=== PATIENT | female | born 1955 | race Caucasian/White ===

== ENCOUNTER 2020-04-07 13:59 | Inpatient (IN) | payer BC ==
[2020-04-07] MEDS ORDERED: Sodium Chloride 0.9% 10 ML Syringe FLUSH PRN ×2 (14:44→16:24)
[2020-04-07] MEDS ORDERED: methylPREDNISolone Sodium Succinate 125 MG/2 ML SDV IVPUSH ONE (14:46)
[2020-04-07] MEDS ORDERED: Albuterol/Ipratropium 3.0-0.5 MG/3 ML Neb Soln NEB ONE (14:46)
[2020-04-07] MEDS ORDERED: HYDROmorphone 0.5 MG/0.5 ML Syringe IVPUSH ONE (14:48)
--- NOTE | 2020-04-07 16:10 | EDM.PDOC ---
ED HPI GENERAL MEDICAL PROBLEM - General Chief Complaint: Respiratory Problem Stated Complaint: SOB, NO BOWEL MOVEMENT, SORES ON BACK Time Seen by Provider: 04/07/20 14:21 Source of Information: Reports: Patient History Limitations: Reports: No Limitations - History of Present Illness INITIAL COMMENTS - FREE TEXT/NARRATIVE: The patient presents with shortness of breath. She has stage 4 lung cancer. She has mets to lymph nodes and lesions under the skin. She is seeing Dr Grijalva and they are trying an immunologic. She was supposed to get an infusion to day but she was to short of breath. She also says she has not had a bowel movement in a few days. She has no fever or chills. She does have a cough but that is normal for her. She has some chest pain with the cough. She has no history of PE or DVT. She has no swelling or pain in her legs. Onset: Gradual Duration: Day(s): Location: Reports: Chest Quality: Reports: Sharp Severity: Mild Improves with: Reports: None Worsens with: Reports: None Associated Symptoms: Reports: Chest Pain, Cough, Shortness of Breath. Denies: Fever/Chills, Headaches, Nausea/Vomiting Buttock Pain Score (Numeric/FACES): 5 - Related Data Allergies Allergy/AdvReac Type Severity Reaction Status Date / Time lorazepam [From Ativan] Allergy Severe Cardiac Verified 04/07/20 14:08 Arrest phenytoin [From Dilantin] Allergy Severe Rash Verified 04/07/20 14:08 Home Meds: Home Meds DULoxetine [Cymbalta] 90 mg PO DAILY 04/07/20 [History] Metoclopramide HCl [Reglan] 10 mg PO QID 04/07/20 [History] cloNIDine [Catapres] 0.1 mg PO DAILY 04/07/20 [History] dexAMETHasone [Dexamethasone] 2 mg PO DAILY 04/07/20 [History] fentaNYL [Duragesic] 100 mcg TD Q48H 04/07/20 [History] levETIRAcetam [Keppra] 1,000 mg PO Q8H 04/07/20 [History] oxyCODONE ER [OxyCONTIN] 20 mg PO BID 04/07/20 [History] Past Medical History Oncologic (Cancer) History: Reports: Lung - Past Surgical History HEENT Surgical History: Reports: Adenoidectomy, Tonsillectomy Female Surgical History: Reports: Hysterectomy Neurological Surgical History: Reports: Lumbar Spine Musculoskeletal Surgical History: Reports: Arthroscopic Knee Social & Family History - Tobacco Use Smoking Status *Q: Current Some Day Smoker Years of Tobacco use: 40 Packs/Tins Daily: 1 - Recreational Drug Use Recreational Drug Use: No ED ROS GENERAL - Review of Systems Review Of Systems: See Below Constitutional: Reports: No Symptoms HEENT: Reports: No Symptoms Respiratory: Reports: Shortness of Breath Cardiovascular: Reports: Chest Pain Endocrine: Reports: No Symptoms GI/Abdominal: Reports: No Symptoms : Reports: No Symptoms Musculoskeletal: Reports: No Symptoms Skin: Reports: No Symptoms Neurological: Reports: No Symptoms ED EXAM, GENERAL - Physical Exam Exam: See Below Exam Limited By: No Limitations General Appearance: Alert, No Apparent Distress Ears: Normal External Exam Nose: Normal Inspection Head: Atraumatic, Normocephalic Neck: Other (Mass to the left side of her neck and a larger mass above the right clavicle) Respiratory/Chest: No Respiratory Distress, Decreased Breath Sounds, Wheezing Cardiovascular: Regular Rate, Rhythm, No Edema, No Murmur GI/Abdominal: Soft, Non-Tender, No Organomegaly, No Mass Back Exam: Normal Inspection Extremities: Normal Inspection EKG INTERPRETATION EKG Date: 04/07/20 Time: 15:01 Rhythm: Other (sinus tachycardia) Rate (Beats/Min): 119 Ramsay: LAD-Left Ramsay Deviation P-Wave: Present QRS: Normal ST-T: Normal EKG Interpretation Comments: Q waves in the inferior leads Course - Vital Signs Last Recorded V/S: Last Vital Signs Temp 98.5 F 04/07/20 14:03 Pulse 121 H 04/07/20 14:03 Resp 23 H 04/07/20 14:03 BP 95/60 04/07/20 14:03 Pulse Ox 93 L 04/07/20 15:00 - Orders/Labs/Meds Orders: Active Orders 24 hr Category Date Time Status Cardiac Monitoring [RC] . DIRECTED Care 04/07/20 14:45 Active EKG Documentation Completion [RC] STAT Care 04/07/20 14:45 Active Peripheral IV Care [RC] . DIRECTED Care 04/07/20 14:46 Active RT Aerosol Therapy [RC] ASDIRECTED Care 04/07/20 14:46 Active CORONAVIRUS COVID-19 PCR PHL Stat Lab 04/07/20 17:20 Ordered CULTURE BLOOD [BC] Stat Lab 04/07/20 17:20 Ordered CULTURE BLOOD [BC] Stat Lab 04/07/20 17:20 Ordered Piperacillin/Tazobactam [Piperacil-Tazobact] 4.5 gm Med 04/07/20 17:30 Active Sodium Chloride 0.9% [Normal Saline] 100 ml IV Q8H Sodium Chloride 0.9% [Normal Saline] 45 ml Med 04/07/20 16:30 Active IV ASDIRECTED Sodium Chloride 0.9% [Saline Flush] Med 04/07/20 14:44 Active 10 ml FLUSH ASDIRECTED PRN Sodium Chloride 0.9% [Saline Flush] Med 04/07/20 16:24 Active 10 ml FLUSH ONETIME PRN Vancomycin [Vancocin] 1 gm Med 04/07/20 17:21 Active Sodium Chloride 0.9% [Normal Saline (AdvBag)] 250 ml IV ONETIME Blood Culture x2 Reflex Set [OM.PC] Stat Oth 04/07/20 17:20 Ordered Peripheral IV Insertion Adult [OM.PC] Stat Oth 04/07/20 14:44 Ordered Medication Orders Sodium Chloride (Normal Saline) 45 mls @ 40 mls/hr IV ASDIRECTED PATRICA Last Admin: 04/07/20 16:36 Dose: 40 mls/hr Documented by: SHADI Vancomycin HCl 1 gm/ Sodium (Chloride) 250 mls @ 250 mls/hr IV ONETIME ONE Stop: 04/07/20 18:20 Piperacillin Sod/Tazobactam (Sod 4.5 gm/ Sodium Chloride) 100 mls @ 25 mls/hr IV Q8H PATRICA Sodium Chloride (Saline Flush) 10 ml FLUSH ASDIRECTED PRN PRN Reason: Keep Vein Open Last Admin: 04/07/20 15:30 Dose: 10 ml Documented by: DANISHA Sodium Chloride (Saline Flush) 10 ml FLUSH ONETIME PRN PRN Reason: Keep Vein Open Last Admin: 04/07/20 16:36 Dose: 10 ml Documented by: SHADI Labs: Laboratory Tests 04/07/20 04/07/20 Range/Units 15:20 15:20 WBC 24.26 H (3.98-10.04) K/mm3 RBC 3.84 L (3.98-5.22) M/mm3 Hgb 9.0 L (11.2-15.7) gm/dl Hct 31.4 L (34.1-44.9) % MCV 81.8 (79.4-94.8) fl MCH 23.4 L (25.6-32.2) pg MCHC 28.7 L (32.2-35.5) g/dl RDW Std Deviation 51.0 H (36.4-46.3) fL Plt Count 571 H (182-369) K/mm3 MPV 8.0 L (9.4-12.3) fl Neut % (Auto) 92.7 H (34.0-71.1) % Lymph % (Auto) 1.1 L (19.3-51.7) % [place] % (Auto) 5.4 (4.7-12.5) % Eos % (Auto) 0.3 L (0.7-5.8) Baso % (Auto) 0.1 (0.1-1.2) % Neut # (Auto) 22.50 H (1.56-6.13) K/mm3 Lymph # (Auto) 0.26 L (1.18-3.74) K/mm3 [place] # (Auto) 1.31 H (0.24-0.36) K/mm3 Eos # (Auto) 0.08 (0.04-0.36) K/mm3 Baso # (Auto) 0.02 (0.01-0.08) K/mm3 Manual Slide Review Abnormal smear Sodium 130 L (136-145) mEq/L Potassium 3.3 L (3.5-5.1) mEq/L Chloride 93 L (98-107) mEq/L Carbon Dioxide 31 (21-32) mEq/L Anion Gap 9.3 (5-15) BUN 16 (7-18) mg/dL Creatinine 0.4 L (0.55-1.02) mg/dL Est Cr Clr Drug Dosing 91.57 mL/min Estimated GFR (MDRD) > 60 (>60) mL/min BUN/Creatinine Ratio 40.0 H (14-18) Glucose 120 H (80-115) mg/dL Calcium 9.4 (8.5-10.1) mg/dL Total Bilirubin 0.4 (0.2-1.0) mg/dL AST 28 (15-37) U/L ALT 21 (14-59) U/L Alkaline Phosphatase 103 (46-116) U/L Troponin I 0.026 (0.00-0.056) ng/mL Total Protein 5.7 L (6.4-8.2) g/dl Albumin 2.0 L (3.4-5.0) g/dl Globulin 3.7 gm/dL Albumin/Globulin Ratio 0.5 L (1-2) Meds: Medications Generic Name Dose Route Start Last Admin Trade Name David PRN Reason Stop Dose Admin Sodium Chloride 45 mls @ 40 mls/hr 04/07/20 16:30 04/07/20 16:36 Normal Saline IV 40 mls/hr ASDIRECTED PATRICA Administration Vancomycin HCl 1 gm/ Sodium 250 mls @ 250 mls/hr 04/07/20 17:21 Chloride IV 04/07/20 18:20 ONETIME ONE Piperacillin Sod/Tazobactam 100 mls @ 25 mls/hr 04/07/20 17:30 Sod 4.5 gm/ Sodium Chloride IV Q8H PATRICA Sodium Chloride 10 ml 04/07/20 14:44 04/07/20 15:30 Saline Flush FLUSH 10 ml ASDIRECTED PRN Administration Keep Vein Open Sodium Chloride 10 ml 04/07/20 16:24 04/07/20 16:36 Saline Flush FLUSH 10 ml ONETIME PRN Administration Keep Vein Open Discontinued Medications Generic Name Dose Route Start Last Admin Trade Name David PRN Reason Stop Dose Admin Albuterol/Ipratropium 3 ml 04/07/20 14:46 04/07/20 15:00 Duoneb 3.0-0.5 Mg/3 Ml NEB 04/07/20 14:47 3 ml ONETIME ONE Administration Hydromorphone HCl 0.5 mg 04/07/20 14:48 04/07/20 15:29 Dilaudid IVPUSH 04/07/20 14:49 0.5 mg ONETIME ONE Administration Ceftriaxone Sodium 1 gm/ 100 mls @ 200 mls/hr 04/07/20 17:23 Sodium Chloride IV 04/07/20 17:52 ONETIME ONE Iopamidol 100 ml 04/07/20 16:24 04/07/20 16:36 Isovue-370 (76%) IVPUSH 04/07/20 16:25 100 ml ONETIME ONE Administration Methylprednisolone Sodium Succinate 125 mg 04/07/20 14:46 04/07/20 15:28 Solu-Medrol IVPUSH 04/07/20 14:47 125 mg ONETIME ONE Administration - Re-Assessments/Exams Free Text/Narrative Re-Assessment/Exam: 04/07/20 16:34 I ordered an IV saline lock, EKG, labs, duoneb and solu-medrol 125mg IV. Her EKG shows a sinus tachycardia with Q waves in the inferior leads. Her WBC is elevated at 24.26. Her Hgb is low at 9. Her platelets are elevated at 571. Her Na is low at 130. Her K is low at 3.3. Her creatinine is low so I ordered a CT angio of her chest. 04/07/20 17:[address] angio shows enlarged low-density lymph nodes within the right upper axillary region and supraclavicular region. Low density masslike area within the upper right lung measuring 9.4 X 7.3 which shows mostly absence of pulmonary vessels and shows evidence of air which could represent treated necrotic lung tumor or lung abscess. Area of consolidation more anteriorly within the upper r ight lung which most likely is due to prominent atelectasis. Lesser atelectasis within the right lung base is seen. Small right-sided pleural effusion. No findings of pulmonary embolism are seen. I called [facility] in [place] and talked with the oncologist concrete finishing machine operator and he recommended doing blood cultures and antibiotics. He said it is an option to have her come to [place] and have radiation oncology see her for possible radiation. He wanted me to talk to the patient and see what she would like to do. I did talk with her and she would like to stay here if possible and get the antibiotics and treatments and see if that helps. I also talked to her about code status and she is still full code. She still would like to be intubated and have CPR done. I called Dr López and he agreed to the admission. Departure - Departure Time of Disposition: 18:15 Disposition: Admitted As Inpatient 66 Condition: Good Clinical Impression: Hypoxia Lung cancer Qualifiers: Laterality: right Lung location: upper lobe of lung Qualified Code(s): C34.11 - Malignant neoplasm of upper lobe, right bronchus or lung Pneumonia Qualifiers: Pneumonia type: due to unspecified organism Laterality: right Lung location: lower lobe of lung Qualified Code(s): J18.9 - Pneumonia, unspecified organism - Discharge Information Referrals: Mike Grijalva MD [Primary Care Provider] - Forms: ED Department Discharge Sepsis Event Note (ED) - Evaluation Sepsis Screening Result: No Definite Risk - Focused Exam Vital Signs: Vital Signs Temp Pulse Resp BP Pulse Ox Pulse Ox 04/07/20 15:00 93 L 04/07/20 14:03 98.5 F 121 H 23 H 95/60 84 L - My Orders Last 24 Hours: My Active Orders 04/07/20 14:44 Sodium Chloride 0.9% [Saline Flush] 10 ml FLUSH ASDIRECTED PRN Peripheral IV Insertion Adult [OM.PC] Stat 04/07/20 14:45 Cardiac Monitoring [RC] . DIRECTED EKG Documentation Completion [RC] STAT 04/07/20 14:46 Peripheral IV Care [RC] . DIRECTED RT Aerosol Therapy [RC] ASDIRECTED 04/07/20 16:24 Sodium Chloride 0.9% [Saline Flush] 10 ml FLUSH ONETIME PRN 04/07/20 16:30 Sodium Chloride 0.9% [Normal Saline] 45 ml IV ASDIRECTED 04/07/20 17:20 CORONAVIRUS COVID-19 PCR PHL Stat CULTURE BLOOD [BC] Stat CULTURE BLOOD [BC] Stat Blood Culture x2 Reflex Set [OM.PC] Stat 04/07/20 17:21 Vancomycin [Vancocin] 1 gm Sodium Chloride 0.9% [Normal Saline (AdvBag)] 250 ml IV ONETIME 04/07/20 17:30 Piperacillin/Tazobactam [Piperacil-Tazobact] 4.5 gm Sodium Chloride 0.9% [Normal Saline] 100 ml IV Q8H - Assessment/Plan Last 24 Hours: My Active Orders 04/07/20 14:44 Sodium Chloride 0.9% [Saline Flush] 10 ml FLUSH ASDIRECTED PRN Peripheral IV Insertion Adult [OM.PC] Stat 04/07/20 14:45 Cardiac Monitoring [RC] . DIRECTED EKG Documentation Completion [RC] STAT 04/07/20 14:46 Peripheral IV Care [RC] . DIRECTED RT Aerosol Therapy [RC] ASDIRECTED 04/07/20 16:24 Sodium Chloride 0.9% [Saline Flush] 10 ml FLUSH ONETIME PRN 04/07/20 16:30 Sodium Chloride 0.9% [Normal Saline] 45 ml IV ASDIRECTED 04/07/20 17:20 CORONAVIRUS COVID-19 PCR PHL Stat CULTURE BLOOD [BC] Stat CULTURE BLOOD [BC] Stat Blood Culture x2 Reflex Set [OM.PC] Stat 04/07/20 17:21 Vancomycin [Vancocin] 1 gm Sodium Chloride 0.9% [Normal Saline (AdvBag)] 250 ml IV ONETIME 04/07/20 17:30 Piperacillin/Tazobactam [Piperacil-Tazobact] 4.5 gm Sodium Chloride 0.9% [Normal Saline] 100 ml IV Q8H
[2020-04-07] MEDS ORDERED: Iopamidol 755 Mg/ML 100 ML Bottle IVPUSH ONE (16:24)
[2020-04-07] MEDS ORDERED: Sodium Chloride 0.9% 45 ML IV SCH (16:30)
--- NOTE | 2020-04-07 17:01 | CT ---
CT chest Technique: Multiple axial sections were obtained from above the lung apices inferiorly through the lung bases. Intravenous contrast was utilized. Study performed as pulmonary angiogram protocol. Findings: Large low density abnormalities are noted within the upper right axillary region as well as supraclavicular region. Findings presumably represent enlarged low density lymph nodes. Consolidation and increased parenchymal density is noted within the right upper lung. One area shows no lung markings and findings most likely represent a large necrotic lung tumor or lung abscess measuring 9.4 cm x 7.3 cm. There is consolidation within the adjacent portion of lung more anteriorly showing pulmonary vessels. Areas of atelectasis are noted within the right lung base. Small right-sided pleural effusion is seen. Left lung is without acute parenchymal change. Aorta shows no aneurysm. Heart is mildly enlarged. Pulmonary arteries are well opacified. No filling defects are seen to indicate pulmonary embolism. Visualized upper abdominal structures shows no discrete abnormality. Impression: 1. Enlarged low-density lymph nodes within the right upper axillary region and supraclavicular region. 2. Low density masslike area within the upper right lung measuring 9.4 x 7.3 cm which shows mostly absence of pulmonary vessels and shows evidence of air which could represent treated necrotic lung tumor or lung abscess. 3. Area of consolidation more anteriorly within the upper right lung which most likely is due to prominent atelectasis. Lesser atelectasis within the right lung base is seen. 4. Small right-sided pleural effusion. 5. No findings pulmonary embolism are seen. Diagnostic code #3 This report was dictated in MDT
[2020-04-07] MEDS ORDERED: cefTRIAXone 1 GM in Sodium Chloride 0.9% 100 ML IV ONE (17:23)
[2020-04-07] MEDS: Piperacillin/Tazobactam 4.5 GM in Sodium Chloride 0.9% 100 ML IV SCH (18:29)
--- NOTE | 2020-04-07 18:43 | PCM.HP.2 ---
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 currently on radiation treatments for palliation . with weakness and occasional coughing and malaise. skin lesions on buttocks and gluteal area which are blistering per radiation per . denies fever or chills or resp complaints . on pain meds with good control of pain and eating well but too weak to walk Onset of Symptoms: Reports: Today, Sudden, Gradual Duration of Symptoms: Reports: Day(s):, Week(s): Quality: Reports: Burning, Pressure Improves with: Reports: Cold Therapy Worsens with: Reports: None, Movement Associated Symptoms: Reports: No Other Symptoms Buttock Pain Score (Numeric/FACES): 5 - Related Data Allergies/Adverse Reactions: Allergies Allergy/AdvReac Type Severity Reaction Status Date / Time lorazepam [From Ativan] Allergy Severe Cardiac Verified 04/07/20 14:08 Arrest phenytoin [From Dilantin] Allergy Severe Rash Verified 04/07/20 14:08 Home Medications: Home Meds DULoxetine [Cymbalta] 90 mg PO DAILY 04/07/20 [History] Metoclopramide HCl [Reglan] 10 mg PO QID 04/07/20 [History] cloNIDine [Catapres] 0.1 mg PO DAILY 04/07/20 [History] dexAMETHasone [Dexamethasone] 2 mg PO DAILY 04/07/20 [History] fentaNYL [Duragesic] 100 mcg TD Q48H 04/07/20 [History] levETIRAcetam [Keppra] 1,000 mg PO Q8H 04/07/20 [History] oxyCODONE ER [OxyCONTIN] 20 mg PO BID 04/07/20 [History] Past Medical History Oncologic (Cancer) History: Reports: Lung - Past Surgical History HEENT Surgical History: Reports: Adenoidectomy, Tonsillectomy Female Surgical History: Reports: Hysterectomy Neurological Surgical History: Reports: Lumbar Spine Musculoskeletal Surgical History: Reports: Arthroscopic Knee Social & Family History - Tobacco Use Smoking Status *Q: Current Some Day Smoker Years of Tobacco use: 40 Packs/Tins Daily: 1 - Recreational Drug Use Recreational Drug Use: No H&P Review of Systems - Review of Systems: Review Of Systems: See Below General: Reports: No Symptoms HEENT: Reports: No Symptoms Pulmonary: Reports: No Symptoms Cardiovascular: Reports: No Symptoms, Dyspnea on Exertion Gastrointestinal: Reports: No Symptoms Genitourinary: Reports: No Symptoms, Frequency Musculoskeletal: Reports: No Symptoms, Neck Pain, Shoulder Pain, Arm Pain, Back Pain Skin: Reports: No Symptoms, Dryness, Burn(s), Change in Color Psychiatric: Reports: No Symptoms Neurological: Reports: No Symptoms, Seizure Hematologic/Lymphatic: Reports: Anemia, Easy Bleeding, Easy Bruising Exam - Exam Exam: See Below - Vital Signs Vital Signs: Last Vital Signs Temp 36.9 C 04/07/20 14:03 Pulse 121 H 04/07/20 14:03 Resp 23 H 04/07/20 14:03 BP 95/60 04/07/20 14:03 Pulse Ox 93 L 04/07/20 15:00 Weight: 40.823 kg - Exam Quality Assessment: Supplemental Oxygen General: Cooperative HEENT: PERRLA, Hearing Intact, Mucosa Moist & [place], Nares Patent, Normal Nasal Septum, Posterior Pharynx Clear, Conjunctiva Clear, EOMI, EACs Clear, TMs Clear Neck: Supple, Trachea Midline, 2 Lungs: Decreased Breath Sounds Cardiovascular: Regular Rate, Regular Rhythm GI/Abdominal Exam: Normal Bowel Sounds, Soft, Non-Tender, No Organomegaly, No Distention, No Abnormal Bruit, No Mass, Pelvis Stable (Female) Exam: Deferred Extremities: Other (tumor nodules on clavicle and shoulder and back / radiation changes to back ) Skin: Dry, Cool Neurological: Focal Deficit (left eye droop chronic .) Neuro Extensive - Mental Status: Alert, Oriented x3, Normal Mood/Affect, Normal Cognition Neuro Extensive - Motor, Sensory, Reflexes: Abnormal Gait, Facial palsy (L) Psychiatric: Alert, Normal Affect, Normal Mood - Patient Data Lab Results Last 24 hrs: Laboratory Results - last 24 hr 04/07/20 04/07/20 04/07/20 Range/Units 15:20 15:20 18:00 WBC 24.26 H (3.98-10.04) K/mm3 RBC 3.84 L (3.98-5.22) M/mm3 Hgb 9.0 L (11.2-15.7) gm/dl Hct 31.4 L (34.1-44.9) % MCV 81.8 (79.4-94.8) fl MCH 23.4 L (25.6-32.2) pg MCHC 28.7 L (32.2-35.5) g/dl RDW Std Deviation 51.0 H (36.4-46.3) fL Plt Count 571 H (182-369) K/mm3 MPV 8.0 L (9.4-12.3) fl Neut % (Auto) 92.7 H (34.0-71.1) % Lymph % (Auto) 1.1 L (19.3-51.7) % [place] % (Auto) 5.4 (4.7-12.5) % Eos % (Auto) 0.3 L (0.7-5.8) Baso % (Auto) 0.1 (0.1-1.2) % Neut # (Auto) 22.50 H (1.56-6.13) K/mm3 Lymph # (Auto) 0.26 L (1.18-3.74) K/mm3 [place] # (Auto) 1.31 H (0.24-0.36) K/mm3 Eos # (Auto) 0.08 (0.04-0.36) K/mm3 Baso # (Auto) 0.02 (0.01-0.08) K/mm3 Manual Slide Review Abnormal smear Sodium 130 L (136-145) mEq/L Potassium 3.3 L (3.5-5.1) mEq/L Chloride 93 L (98-107) mEq/L Carbon Dioxide 31 (21-32) mEq/L Anion Gap 9.3 (5-15) BUN 16 (7-18) mg/dL Creatinine 0.4 L (0.55-1.02) mg/dL Est Cr Clr Drug Dosing 91.57 mL/min Estimated GFR (MDRD) > 60 (>60) mL/min BUN/Creatinine Ratio 40.0 H (14-18) Glucose 120 H (80-115) mg/dL Calcium 9.4 (8.5-10.1) mg/dL Total Bilirubin 0.4 (0.2-1.0) mg/dL AST 28 (15-37) U/L ALT 21 (14-59) U/L Alkaline Phosphatase 103 (46-116) U/L Troponin I 0.026 (0.00-0.056) ng/mL Total Protein 5.7 L (6.4-8.2) g/dl Albumin 2.0 L (3.4-5.0) g/dl Globulin 3.7 gm/dL Albumin/Globulin Ratio 0.5 L (1-2) SARS-CoV-2 RNA (RT-PCR) Negative (NEGATIVE) Result Diagrams: 04/07/20 15:20 04/07/20 15:20 Sepsis Event Note - Evaluation Sepsis Screening Result: No Definite Risk - Focused Exam Vital Signs: Vital Signs Temp Pulse Resp BP Pulse Ox Pulse Ox 04/07/20 15:00 93 L 04/07/20 14:03 36.9 C 121 H 23 H 95/60 84 L Date Exam was Performed: 04/07/20 Time Exam was Performed: 18:37 - Problem List (1) Weakness SNOMED Code(s): 62701531 ICD Code: R53.1 - WEAKNESS Status: Acute Priority: High Current Visit: Yes Onset Date: ~04/07/20 (2) Hypoxia SNOMED Code(s): 350058015 ICD Code: R09.02 - HYPOXEMIA Status: Acute Priority: High Current Visit: Yes Onset Date: ~04/07/20 (3) Lung cancer SNOMED Code(s): 990997039 ICD Code: C34.90 - MALIGNANT NEOPLASM OF UNSP PART OF UNSP BRONCHUS OR LUNG Status: Acute Priority: High Current Visit: Yes Onset Date: ~04/07/20 Qualifiers: Laterality: right Lung location: upper lobe of lung Qualified Code(s): C34.11 - Malignant neoplasm of upper lobe, right bronchus or lung (4) Pneumonia SNOMED Code(s): 850038062 ICD Code: J18.9 - PNEUMONIA, UNSPECIFIED ORGANISM Status: Acute Priority: Medium Current Visit: Yes Onset Date: ~04/07/20 Qualifiers: Pneumonia type: due to unspecified organism Laterality: bilateral Lung location: lower lobe of lung Qualified Code(s): J18.9 - Pneumonia, unspecified organism Problem List Initiated/Reviewed/Updated: Yes Orders Last 24hrs: Active Orders 24 hr Category Date Time Status Cardiac Monitoring [RC] . DIRECTED Care 04/07/20 14:45 Active EKG Documentation Completion [RC] STAT Care 04/07/20 14:45 Active Peripheral IV Care [RC] . DIRECTED Care 04/07/20 14:46 Active RT Aerosol Therapy [RC] ASDIRECTED Care 04/07/20 14:46 Active CULTURE BLOOD [BC] Stat Lab 04/07/20 17:40 Received CULTURE BLOOD [BC] Stat Lab 04/07/20 17:55 Received DULoxetine Med 04/08/20 09:00 Ordered 90 mg PO DAILY Metoclopramide [Reglan] Med 04/07/20 21:00 Ordered 10 mg PO QID Piperacillin/Tazobactam [Piperacil-Tazobact] 4.5 gm Med 04/07/20 17:30 Active Sodium Chloride 0.9% [Normal Saline] 100 ml IV Q8H Sodium Chloride 0.9% [Normal Saline] 45 ml Med 04/07/20 16:30 Active IV ASDIRECTED Sodium Chloride 0.9% [Saline Flush] Med 04/07/20 14:44 Active 10 ml FLUSH ASDIRECTED PRN Sodium Chloride 0.9% [Saline Flush] Med 04/07/20 16:24 Active 10 ml FLUSH ONETIME PRN cloNIDine [Catapres] Med 04/08/20 09:00 Ordered 0.1 mg PO DAILY fentaNYL [Duragesic] Med 04/07/20 18:45 Ordered 100 mcg TOP Q72H levETIRAcetam [Keppra] Med 04/07/20 18:45 Ordered 1,000 mg PO Q8H oxyCODONE ER [OxyCONTIN] Med 04/07/20 21:00 Ordered 20 mg PO BID Blood Culture x2 Reflex Set [OM.PC] Stat Oth 04/07/20 17:20 Ordered Peripheral IV Insertion Adult [OM.PC] Stat Oth 04/07/20 14:44 Ordered Medication Orders Clonidine HCl (Catapres) 0.1 mg PO DAILY PATRICA Fentanyl (Duragesic) 100 mcg TOP Q72H PATRICA Sodium Chloride (Normal Saline) 45 mls @ 40 mls/hr IV ASDIRECTED PATRICA Last Admin: 04/07/20 16:36 Dose: 40 mls/hr Documented by: SHADI Piperacillin Sod/Tazobactam (Sod 4.5 gm/ Sodium Chloride) 100 mls @ 25 mls/hr IV Q8H PATRICA Last Admin: 04/07/20 18:29 Dose: 200 mls/hr Documented by: DANISHA Levetiracetam (Keppra) 1,000 mg PO Q8H PATRICA Metoclopramide HCl (Reglan) 10 mg PO QID PATRICA Non-Formulary Medication (Duloxetine) 90 mg PO DAILY PATRICA Oxycodone HCl (Oxycontin) 20 mg PO BID PATRICA Sodium Chloride (Saline Flush) 10 ml FLUSH ASDIRECTED PRN PRN Reason: Keep Vein Open Last Admin: 04/07/20 15:30 Dose: 10 ml Documented by: DANISHA Sodium Chloride (Saline Flush) 10 ml FLUSH ONETIME PRN PRN Reason: Keep Vein Open Last Admin: 04/07/20 16:36 Dose: 10 ml Documented by: SHADI Assessment/Plan Comment:: assess: lung cancer s/p radiation with necrotic area on c t scan pneumonia /atelectasis dehydration r/o hypercalcemia 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 weakness profound on steroids . malnutrition. constipation prognosis very poor and discussed with patient and wants admission and will treat pneumonia and discuss with oncology in am . ?transfer to [place] for further paliative treatments ? she is full code. iv meds antibiotics rocephin and zythromax. pain control. treat obstipation constipation monitor nutrition and dietary consult . boh - Mortality Measure Prognosis:: Poor
[2020-04-07] MEDS ORDERED: fentaNYL 100 MCG/HR Transdermal Patch TOP SCH (21:00)
[2020-04-07] MEDS ORDERED: cloNIDine 0.1 MG Tab PO ONE (22:00)
[2020-04-07] MEDS ORDERED: DULoxetine 30 MG Cap PO ONE (22:00)
[2020-04-07] MEDS ORDERED: Melatonin 3 MG Tab PO ONE (22:00)
[2020-04-07] MEDS: Metoclopramide 10 MG Tab PO SCH (22:05)
[2020-04-07] MEDS: oxyCODONE ER 20 MG TAB.ER PO SCH (22:05)
[2020-04-07] MEDS: Dextrose 5%-Lactated Ringers 1,000 ML IV SCH (22:06)
[2020-04-07] MEDS: levETIRAcetam 500 MG Tab PO SCH (22:06)
[2020-04-08] MEDS: Albuterol/Ipratropium 3.0-0.5 MG/3 ML Neb Soln NEB PRN ×4 (00:09→19:52)
[2020-04-08] MEDS: Piperacillin/Tazobactam 4.5 GM in Sodium Chloride 0.9% 100 ML IV SCH ×3 (00:45→17:09)
[2020-04-08] MEDS: Ibuprofen 600 MG Tab PO PRN ×3 (03:54→21:46)
[2020-04-08] MEDS: fentaNYL 100 MCG/HR Transdermal Patch TOP SCH (06:25)
[2020-04-08] MEDS: levETIRAcetam 500 MG Tab PO SCH ×3 (06:26→21:18)
[2020-04-08] MEDS: Dextrose 5%-Lactated Ringers 1,000 ML IV SCH ×2 (07:54→16:14)
[2020-04-08] MEDS ORDERED: cloNIDine 0.1 MG Tab PO SCH (09:00)
[2020-04-08] MEDS ORDERED: DULoxetine 30 MG Cap PO SCH (09:00)
[2020-04-08] MEDS: DULoxetine 30 MG Cap PO SCH ×2 (09:40→21:12)
[2020-04-08] MEDS: oxyCODONE ER 20 MG TAB.ER PO SCH ×2 (09:41→21:12)
[2020-04-08] MEDS: Dexamethasone 4 MG Tab PO SCH (09:41)
[2020-04-08] MEDS: Metoclopramide 10 MG Tab PO SCH ×4 (09:46→21:09)
[2020-04-08] MEDS: Enoxaparin 40 MG/0.4 ML Syringe SUBCUT SCH (13:06)
[2020-04-08] MEDS ORDERED: Lactated Ringers 1,000 ML IV SCH (13:15)
--- NOTE | 2020-04-08 13:43 | PCM.PN ---
- General Info Date of Service: 04/08/20 Admission Dx/Problem (Free Text): constipation/// possible pneumonia///// dehydration///weakness///lung cancer Subjective Update: 04/08/20 afebrile vss, i/os hydration improved. feels better o2 3 l n.c.// lungs decreased cor; rrr abd benign. neuro alert and oriented . abd non tender;minimal distention . bs heard. lab: pending discussed her code status and she wishes to be no cpr/ no intubation. called her oncologist and discussing treatment options in light of progression. iv has helped dehydration alot. 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 constipation: chronic obstipation and will start lactulose and sennakot. dehydration improved. pneumonia ? recheck chest xray . copd start nebs sec to severe lung disease. hospice briefly explained and defer until we see what oncology says . prognosis appears poor and more short term and discussed with patient and and they are appreciative of concerns boh Functional Status: Reports: Pain Controlled - Review of Systems General: Reports: Weakness, Fatigue, Malaise HEENT: Reports: No Symptoms Pulmonary: Reports: Shortness of Breath, Cough Cardiovascular: Reports: No Symptoms Gastrointestinal: Reports: Constipation Genitourinary: Reports: No Symptoms Musculoskeletal: Reports: Shoulder Pain, Back Pain, Joint Pain Skin: Reports: Dryness, Rash Neurological: Reports: Weakness Psychiatric: Reports: Confusion - Patient Data Vitals - Most Recent: Last Vital Signs Temp 36.6 C 04/08/20 03:36 Pulse 106 H 04/08/20 03:36 Resp 26 H 04/08/20 03:36 BP 102/64 04/08/20 03:36 Pulse Ox 92 L 04/08/20 08:03 Weight - Most Recent: 42.774 kg I&O - Last 24 Hours: Intake & Output 04/07/20 04/08/20 04/08/20 22:59 06:59 14:59 Intake Total 2943 Output Total 450 Balance 2493 Lab Results Last 24 Hours: Laboratory Results - last 24 hr 04/07/20 04/07/20 04/07/20 Range/Units 15:20 15:20 18:00 WBC 24.26 H (3.98-10.04) K/mm3 RBC 3.84 L (3.98-5.22) M/mm3 Hgb 9.0 L (11.2-15.7) gm/dl Hct 31.4 L (34.1-44.9) % MCV 81.8 (79.4-94.8) fl MCH 23.4 L (25.6-32.2) pg MCHC 28.7 L (32.2-35.5) g/dl RDW Std Deviation 51.0 H (36.4-46.3) fL Plt Count 571 H (182-369) K/mm3 MPV 8.0 L (9.4-12.3) fl Neut % (Auto) 92.7 H (34.0-71.1) % Lymph % (Auto) 1.1 L (19.3-51.7) % [place] % (Auto) 5.4 (4.7-12.5) % Eos % (Auto) 0.3 L (0.7-5.8) Baso % (Auto) 0.1 (0.1-1.2) % Neut # (Auto) 22.50 H (1.56-6.13) K/mm3 Lymph # (Auto) 0.26 L (1.18-3.74) K/mm3 [place] # (Auto) 1.31 H (0.24-0.36) K/mm3 Eos # (Auto) 0.08 (0.04-0.36) K/mm3 Baso # (Auto) 0.02 (0.01-0.08) K/mm3 Manual Slide Review Abnormal smear Sodium 130 L (136-145) mEq/L Potassium 3.3 L (3.5-5.1) mEq/L Chloride 93 L (98-107) mEq/L Carbon Dioxide 31 (21-32) mEq/L Anion Gap 9.3 (5-15) BUN 16 (7-18) mg/dL Creatinine 0.4 L (0.55-1.02) mg/dL Est Cr Clr Drug Dosing 91.57 mL/min Estimated GFR (MDRD) > 60 (>60) mL/min BUN/Creatinine Ratio 40.0 H (14-18) Glucose 120 H (80-115) mg/dL Calcium 9.4 (8.5-10.1) mg/dL Total Bilirubin 0.4 (0.2-1.0) mg/dL AST 28 (15-37) U/L ALT 21 (14-59) U/L Alkaline Phosphatase 103 (46-116) U/L Troponin I 0.026 (0.00-0.056) ng/mL Total Protein 5.7 L (6.4-8.2) g/dl Albumin 2.0 L (3.4-5.0) g/dl Globulin 3.7 gm/dL Albumin/Globulin Ratio 0.5 L (1-2) Urine Color (Yellow) Urine Appearance (Clear) Urine pH (5.0-8.0) Ur Specific [place] (1.005-1.030) Urine Protein (Negative) Urine Glucose (UA) (Negative) Urine Ketones (Negative) Urine Occult Blood (Negative) Urine Nitrite (Negative) Urine Bilirubin (Negative) Urine Urobilinogen (0.2-1.0) Ur Leukocyte Esterase (Negative) Urine RBC (0-5) /hpf Urine WBC (0-5) /hpf Ur Squamous Epith Cells (0-5) /hpf Urine Bacteria (FEW) /hpf Urine Mucus (FEW) /hpf SARS-CoV-2 RNA (RT-PCR) Negative (NEGATIVE) 04/07/20 Range/Units 22:30 WBC (3.98-10.04) K/mm3 RBC (3.98-5.22) M/mm3 Hgb (11.2-15.7) gm/dl Hct (34.1-44.9) % MCV (79.4-94.8) fl MCH (25.6-32.2) pg MCHC (32.2-35.5) g/dl RDW Std Deviation (36.4-46.3) fL Plt Count (182-369) K/mm3 MPV (9.4-12.3) fl Neut % (Auto) (34.0-71.1) % Lymph % (Auto) (19.3-51.7) % [place] % (Auto) (4.7-12.5) % Eos % (Auto) (0.7-5.8) Baso % (Auto) (0.1-1.2) % Neut # (Auto) (1.56-6.13) K/mm3 Lymph # (Auto) (1.18-3.74) K/mm3 [place] # (Auto) (0.24-0.36) K/mm3 Eos # (Auto) (0.04-0.36) K/mm3 Baso # (Auto) (0.01-0.08) K/mm3 Manual Slide Review Sodium (136-145) mEq/L Potassium (3.5-5.1) mEq/L Chloride (98-107) mEq/L Carbon Dioxide (21-32) mEq/L Anion Gap (5-15) BUN (7-18) mg/dL Creatinine (0.55-1.02) mg/dL Est Cr Clr Drug Dosing mL/min Estimated GFR (MDRD) (>60) mL/min BUN/Creatinine Ratio (14-18) Glucose (80-115) mg/dL Calcium (8.5-10.1) mg/dL Total Bilirubin (0.2-1.0) mg/dL AST (15-37) U/L ALT (14-59) U/L Alkaline Phosphatase (46-116) U/L Troponin I (0.00-0.056) ng/mL Total Protein (6.4-8.2) g/dl Albumin (3.4-5.0) g/dl Globulin gm/dL Albumin/Globulin Ratio (1-2) Urine Color Yellow (Yellow) Urine Appearance Clear (Clear) Urine pH 6.0 (5.0-8.0) Ur Specific [place] 1.015 (1.005-1.030) Urine Protein 2+ H (Negative) Urine Glucose (UA) Trace H (Negative) Urine Ketones Negative (Negative) Urine Occult Blood Negative (Negative) Urine Nitrite Negative (Negative) Urine Bilirubin Negative (Negative) Urine Urobilinogen 0.2 (0.2-1.0) Ur Leukocyte Esterase Negative (Negative) Urine RBC 0-5 (0-5) /hpf Urine WBC 10-20 H (0-5) /hpf Ur Squamous Epith Cells 5-10 H (0-5) /hpf Urine Bacteria Few (FEW) /hpf Urine Mucus Not seen (FEW) /hpf SARS-CoV-2 RNA (RT-PCR) (NEGATIVE) Med Orders - Current: Current Medications Albuterol/Ipratropium (Duoneb 3.0-0.5 Mg/3 Ml) 3 ml NEB QID PRN PRN Reason: Shortness of Breath Last Admin: 04/08/20 08:02 Dose: 3 ml Documented by: Clonidine HCl (Catapres) 0.1 mg PO BEDTIME [facility] Dexamethasone (Dexamethasone) 2 mg PO DAILY [facility] Last Admin: 04/08/20 09:41 Dose: 2 mg Documented by: Duloxetine HCl (Cymbalta) 60 mg PO DAILY [facility] Last Admin: 04/08/20 09:40 Dose: 60 mg Documented by: Duloxetine HCl (Cymbalta) 30 mg PO BEDTIME [facility] Enoxaparin Sodium (Lovenox) 40 mg SUBCUT DAILY [facility] Last Admin: 04/08/20 13:06 Dose: 40 mg Documented by: Fentanyl (Duragesic) 100 mcg TOP Q72H [facility] Last Admin: 04/08/20 06:25 Dose: 100 mcg Documented by: Piperacillin Sod/Tazobactam (Sod 4.5 gm/ Sodium Chloride) 100 mls @ 25 mls/hr IV Q8H [facility] Last Admin: 04/08/20 09:48 Dose: 200 mls/hr Documented by: Dextrose/Lactated Ringer's (Dextrose 5%-Lactated Ringers) 1,000 mls @ 125 mls/h r IV ASDIRECTED [facility] Last Admin: 04/08/20 07:54 Dose: 125 mls/hr Documented by: Vancomycin HCl 0.75 gm/ Sodium (Chloride) 250 mls @ 250 mls/hr IV Q24H [facility] Lactated Ringer's (Ringers, Lactated) 1,000 mls @ 50 mls/hr IV ASDIRECTED [facility] Ibuprofen (Motrin) 600 mg PO Q6H PRN PRN Reason: Pain Last Admin: 04/08/20 10:03 Dose: 600 mg Documented by: Lactulose (Cephulac) 20 gm PO BID [facility] Levetiracetam (Keppra) 1,000 mg PO Q8H [facility] Last Admin: 04/08/20 13:05 Dose: 1,000 mg Documented by: Melatonin (Melatonin) 21 mg PO BEDTIME [facility] Metoclopramide HCl (Reglan) 10 mg PO QID [facility] Last Admin: 04/08/20 13:15 Dose: 10 mg Documented by: Oxycodone HCl (Oxycontin) 20 mg PO BID [facility] Last Admin: 04/08/20 09:41 Dose: 20 mg Documented by: Senna/Docusate Sodium (Senna Plus) 2 tab PO BID [facility] Sodium Chloride (Saline Flush) 10 ml FLUSH ASDIRECTED PRN PRN Reason: Keep Vein Open Last Admin: 04/07/20 15:30 Dose: 10 ml Documented by: Vancomycin HCl (Pharmacy To Dose - Vancomycin) 1 dose .XX ASDIRECTED PRN PRN Reason: RX TO DOSE VANCO Discontinued Medications Albuterol/Ipratropium (Duoneb 3.0-0.5 Mg/3 Ml) 3 ml NEB ONETIME ONE Stop: 04/07/20 14:47 Last Admin: 04/07/20 15:00 Dose: 3 ml Documented by: Clonidine HCl (Catapres) 0.1 mg PO DAILY [facility] Clonidine HCl (Catapres) 0.1 mg PO ONETIME ONE Stop: 04/07/20 22:01 Last Admin: 04/07/20 22:08 Dose: 0.1 mg Documented by: Duloxetine HCl (Cymbalta) 90 mg PO DAILY [facility] Duloxetine HCl (Cymbalta) 30 mg PO ONETIME ONE Stop: 04/07/20 22:01 Last Admin: 04/07/20 22:04 Dose: 30 mg Documented by: Fentanyl (Duragesic) 100 mcg TOP Q72H [facility] Last Admin: 04/08/20 01:31 Dose: Not Given Documented by: Hydromorphone HCl (Dilaudid) 0.5 mg IVPUSH ONETIME ONE Stop: 04/07/20 14:49 Last Admin: 04/07/20 15:29 Dose: 0.5 mg Documented by: Sodium Chloride (Normal Saline) 45 mls @ 40 mls/hr IV ASDIRECTED [facility] Last Admin: 04/07/20 16:36 Dose: 40 mls/hr Documented by: Vancomycin HCl 1 gm/ Sodium (Chloride) 250 mls @ 250 mls/hr IV ONETIME ONE Stop: 04/07/20 18:20 Last Admin: 04/07/20 19:48 Dose: 250 mls/hr Documented by: Ceftriaxone Sodium 1 gm/ (Sodium Chloride) 100 mls @ 200 mls/hr IV ONETIME ONE Stop: 04/07/20 17:52 Last Admin: 04/07/20 17:58 Dose: 200 mls/hr Documented by: Iopamidol (Isovue-370 (76%)) 100 ml IVPUSH ONETIME ONE Stop: 04/07/20 16:25 Last Admin: 04/07/20 16:36 Dose: 100 ml Documented by: Melatonin (Melatonin) 21 mg PO ONETIME ONE Stop: 04/07/20 22:01 Last Admin: 04/07/20 22:09 Dose: 21 mg Documented by: Methylprednisolone Sodium Succinate (Solu-Medrol) 125 mg IVPUSH ONETIME ONE Stop: 04/07/20 14:47 Last Admin: 04/07/20 15:28 Dose: 125 mg Documented by: Sodium Chloride (Saline Flush) 10 ml FLUSH ONETIME PRN PRN Reason: Keep Vein Open Last Admin: 04/07/20 16:36 Dose: 10 ml Documented by: - Exam Quality Assessment: Supplemental Oxygen General: Alert, Oriented HEENT: Pupils Equal, Pupils Reactive, EOMI, Mucous Membr. Moist/[place] Neck: Supple Lungs: Decreased Breath Sounds, Wheezing Cardiovascular: Regular Rate, Regular Rhythm GI/Abdominal Exam: Normal Bowel Sounds, Soft, Non-Tender, No Organomegaly, No Distention, No Abnormal Bruit, No Mass, Pelvis Stable (Female) Exam: Normal External Exam, Normal Speculum Exam, Normal Bimanual Exam Back Exam: Normal Inspection, Full Range of Motion Extremities: Normal Inspection, Normal Range of Motion, Non-Tender, No Pedal Edema, Normal Capillary Refill, Slow Capillary Refill Skin: Warm, Dry, Intact Wound/Incisions: No Drainage, Decubitis Neurological: No New Focal Deficit Psy/Mental Status: Alert (sacral area in dressing ), Normal Affect, Normal Mood Sepsis Event Note - Evaluation Sepsis Screening Result: Sepsis Risk Current Stage of Sepsis: Ruled Out Reason for Ruling Out Sepsis: pneumonia /atelectasis//// bl cultures ngsf Possible Source of Sepsis: Pulmonary - Focused Exam Vital Signs: Vital Signs Temp Pulse Resp BP Pulse Ox Pulse Ox 04/08/20 08:03 92 L 04/08/20 03:36 36.6 C 106 H 26 H 102/64 92 L Capillary Refill, Detail: Greater than (>) 2 Seconds Date Exam was Performed: 04/08/20 Time Exam was Performed: 13:43 - Bedside Monitoring Bedside Ultrasound Performed: No Passive Leg Raise/Fluid Bolus: Negative, Fluid Responsive (no signs sepsis/ possable pneumonia) Date Bedside Monitoring was Performed: 04/08/20 Time Bedside Monitoring was Performed: 13:43 - Problem List & Annotations (1) Weakness SNOMED Code(s): 55043440 Code(s): R53.1 - WEAKNESS Status: Acute Priority: High Current Visit: Yes Onset Date: ~04/07/20 Annotation/Comment:: p.t to see./non ambulitory other than few feet with assist. (2) Hypoxia SNOMED Code(s): 424807567 Code(s): R09.02 - HYPOXEMIA Status: Acute Priority: High Current Visit: Yes Onset Date: ~04/07/20 Annotation/Comment:: sats 90 on 3 l n.c. breathe sounds decreased throughout / start inhaler (3) Lung cancer SNOMED Code(s): 006646871 Code(s): C34.90 - MALIGNANT NEOPLASM OF UNSP PART OF UNSP BRONCHUS OR LUNG Status: Acute Priority: High Current Visit: Yes Onset Date: ~04/07/20 Qualifiers: Laterality: right Lung location: upper lobe of lung Qualified Code(s): C34.11 - Malignant neoplasm of upper lobe, right bronchus or lung Annotation/Comment:: small cell cancer with known liver and suspected bone mets. (4) Pneumonia SNOMED Code(s): 970040476 Code(s): J18.9 - PNEUMONIA, UNSPECIFIED ORGANISM Status: Acute Priority: Medium Current Visit: Yes Onset Date: ~04/07/20 Qualifiers: Pneumonia type: due to unspecified organism Laterality: bilateral Lung location: lower lobe of lung Qualified Code(s): J18.9 - Pneumonia, unspecified organism (5) Dehydration SNOMED Code(s): 59654987 Code(s): E86.0 - DEHYDRATION Status: Acute Priority: High Current Visit: Yes Onset Date: ~04/07/20 (6) Constipation SNOMED Code(s): 71162716 Code(s): K59.00 - CONSTIPATION, UNSPECIFIED Status: Acute Current Visit: Yes Qualifiers: Constipation type: drug induced constipation Qualified Code(s): K59.03 - Drug induced constipation (7) Constipation due to opioid therapy SNOMED Code(s): 188221672308370 Code(s): K59.03 - DRUG INDUCED CONSTIPATION; T40.2X5A - ADVERSE EFFECT OF OTHER OPIOIDS, INITIAL ENCOUNTER Status: Acute Priority: Medium Current Visit: Yes Onset Date: ~04/07/20 - Problem List Review Problem List Initiated/Reviewed/Updated: Yes - My Orders Last 24 Hours: My Active Orders 04/07/20 19:00 Dextrose 5%-Lactated Ringers 1,000 ml IV ASDIRECTED 04/07/20 20:00 Pharmacy to Dose - Vancomycin 1 dose .XX ASDIRECTED PRN 04/07/20 21:00 Metoclopramide [Reglan] 10 mg PO QID oxyCODONE ER [OxyCONTIN] 20 mg PO BID 04/07/20 22:00 levETIRAcetam [Keppra] 1,000 mg PO Q8H 04/07/20 23:32 Albuterol/Ipratropium [DuoNeb 3.0-0.5 MG/3 ML] 3 ml NEB QID PRN 04/07/20 23:33 RT Aerosol Therapy [RC] ASDIRECTED 04/08/20 03:42 Ibuprofen [Motrin] 600 mg PO Q6H PRN 04/08/20 Breakfast Regular Diet [DIET] fentaNYL [Duragesic] 100 mcg TOP Q72H 04/08/20 07:15 METH-RESIST S.AUR,MRSA BY PCR [MOLEC] Routine 04/08/20 09:00 DULoxetine [Cymbalta] 60 mg PO DAILY dexAMETHasone 2 mg PO DAILY 04/08/20 11:19 Up With Assistance [RC] ASDIRECTED 04/08/20 11:30 Enoxaparin [Lovenox] 40 mg SUBCUT DAILY 04/08/20 13:06 Oxygen Therapy [RC] PRN VTE/DVT Education [RC] PER UNIT ROUTINE Chest 2V [CR] Routine 04/08/20 13:15 Lactated Ringers [Ringers, Lactated] 1,000 ml IV ASDIRECTED 04/08/20 13:20 CMP [COMPREHENSIVE METABOLIC PN,CMP] [CHEM] Routine 04/08/20 13:34 Docusate Sodium/Sennosides [Senna Plus] 2 tab PO BID 04/08/20 18:00 Vancomycin 0.75 gm Sodium Chloride 0.9% [Normal Saline] 250 ml IV Q24H 04/08/20 21:00 DULoxetine [Cymbalta] 30 mg PO BEDTIME Lactulose [Cephulac] 20 gm PO BID Melatonin 21 mg PO BEDTIME cloNIDine [Catapres] 0.1 mg PO BEDTIME - Plan Plan:: assess: lung cancer s/p radiation with necrotic area on c t scan pneumonia /atelectasis dehydration r/o hypercalcemia 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 weakness profound on steroids . malnutrition. constipation prognosis very poor and discussed with patient and wants admission and will treat pneumonia and discuss with oncology in am . ?transfer to [place] for further paliative treatments ? she is full code. iv meds antibiotics rocephin and zythromax. pain control. treat obstipation constipation monitor nutrition and dietary consult . boh 04/08/20 afebrile vss, i/os hydration improved. feels better o2 3 l n.c.// lungs decreased cor; rrr abd benign. neuro alert and oriented . abd non tender;minimal distention . bs heard. lab: pending discussed her code status and she wishes to be no cpr/ no intubation. called her oncologist and discussing treatment options in light of progression. iv has helped dehydration alot. 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 constipation: chronic obstipation and will start lactulose and sennakot. dehydration improved. pneumonia ? recheck chest xray . copd start nebs sec to severe lung disease. hospice briefly explained and defer until we see what oncology says . prognosis appears poor and more short term and discussed with patient and and they are appreciative of concerns boh
--- NOTE | 2020-04-08 14:49 | CR ---
Chest: 2 views of the chest were obtained. Comparison: Prior chest CT of 04/07/20. Diffusely opacified right lung is seen. Left lung shows nothing acute. Left mediastinum is normal. Shifting of the trachea to the right side is seen. Impression: 1. Diffusely opacified right lung. 2. Left long felt to be clear. Diagnostic code #3 This report was dictated in MDT
[2020-04-08] MEDS ORDERED: Non-Formulary Medication 1 Each (Melatonin [Melatonin] 20 MG) PO SCH (21:00)
[2020-04-08] MEDS: Melatonin 3 MG Tab PO SCH (21:08)
[2020-04-08] MEDS: cloNIDine 0.1 MG Tab PO SCH (21:12)
[2020-04-08] MEDS: Lactulose Soln 10 GM/15 ML 30 ML UD Cup PO SCH (21:13)
[2020-04-09] MEDS: Potassium Chloride 20 MEQ Tab.ER PO SCH ×3 (00:52→21:42)
[2020-04-09] MEDS: Piperacillin/Tazobactam 4.5 GM in Sodium Chloride 0.9% 100 ML IV SCH ×3 (00:52→18:35)
[2020-04-09] MEDS: Albuterol/Ipratropium 3.0-0.5 MG/3 ML Neb Soln NEB PRN ×4 (01:01→21:06)
[2020-04-09] MEDS: levETIRAcetam 500 MG Tab PO SCH ×3 (06:07→21:42)
[2020-04-09] MEDS: Dexamethasone 4 MG Tab PO SCH (08:59)
[2020-04-09] MEDS: Metoclopramide 10 MG Tab PO SCH ×4 (09:01→21:45)
[2020-04-09] MEDS: DULoxetine 30 MG Cap PO SCH ×2 (09:01→21:45)
[2020-04-09] MEDS: Lactulose Soln 10 GM/15 ML 30 ML UD Cup PO SCH ×2 (09:01→21:48)
[2020-04-09] MEDS: oxyCODONE ER 20 MG TAB.ER PO SCH ×2 (09:01→21:40)
[2020-04-09] MEDS: Enoxaparin 40 MG/0.4 ML Syringe SUBCUT SCH (09:03)
--- NOTE | 2020-04-09 17:02 | PCM.PN ---
- General Info Date of Service: 04/09/20 Admission Dx/Problem (Free Text): constipation/// possible pneumonia///// dehydration///weakness///lung cancer Subjective Update: 04/08/20 afebrile vss, i/os hydration improved. feels better o2 3 l n.c.// lungs decreased cor; rrr abd benign. neuro alert and oriented . abd non tender;minimal distention . bs heard. lab: pending discussed her code status and she wishes to be no cpr/ no intubation. called her oncologist and discussing treatment options in light of progression. iv has helped dehydration alot. 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 constipation: chronic obstipation and will start lactulose and sennakot. dehydration improved. pneumonia ? recheck chest xray . copd start nebs sec to severe lung disease. hospice briefly explained and defer until we see what oncology says . prognosis appears poor and more short term and discussed with patient and and they are appreciative of concerns boh 04/09/20 afebrile vss but on 2 liters n.c with sats around 90-94 in bed. iv. hep locked mild tach 110 rr20 with talking b.p stable. voiding well . appetite good p.e lungs crackles left upper lobe. decreased entire rt lung cor rrr no murmur s3/s4 abd benign extrem good perfusion . lab reviewed. chest xray pending reviewed ct scan with oncology and with and this am with patient. she is not receiving benefit form palliative modulator and not candidate for aggressive chemo nor more radiation . discussed c and hospice and they would like to talk with both. discussed lab improved and home going plans including home o2 and home nebs for comfort and ease of breathing . 9q 4-6 hours now . discussed switching to oral antibiotic and will do so in am if cont to do well . a Functional Status: Reports: Pain Controlled - Review of Systems General: Reports: Weakness, Fatigue. Denies: Fever, Malaise, Chills Pulmonary: Reports: Shortness of Breath, Cough, Wheezing. Denies: Sputum Cardiovascular: Reports: No Symptoms Gastrointestinal: Reports: No Symptoms Genitourinary: Reports: No Symptoms Musculoskeletal: Reports: No Symptoms Skin: Reports: No Symptoms Neurological: Reports: No Symptoms Psychiatric: Reports: No Symptoms - Patient Data Vitals - Most Recent: Last Vital Signs Temp 36.4 C 04/09/20 16:09 Pulse 108 H 04/09/20 16:09 Resp 22 H 04/09/20 16:09 BP 98/60 04/09/20 16:09 Pulse Ox 95 04/09/20 16:28 Weight - Most Recent: 42.547 kg I&O - Last 24 Hours: Intake & Output 04/09/20 04/09/20 04/09/20 06:59 14:59 22:59 Intake Total 0581 673 2055 Output Total 1600 2150 Balance -157 420 -976 Lab Results Last 24 Hours: Laboratory Results - last 24 hr 04/09/20 Range/Units 00:55 MRSA (PCR) Negative [facility] Results Last 24 Hours: Microbiology 04/07/20 17:55 Aerobic Blood Culture - Preliminary Blood - Venous - Lab Draw NO GROWTH AFTER 1 DAY Anaerobic Blood Culture - Preliminary NO GROWTH AFTER 1 DAY 04/07/20 17:40 Aerobic Blood Culture - Preliminary Blood - Venous NO GROWTH AFTER 1 DAY Anaerobic Blood Culture - Preliminary NO GROWTH AFTER 1 DAY Med Orders - Current: Current Medications Albuterol/Ipratropium (Duoneb 3.0-0.5 Mg/3 Ml) 3 ml NEB Q4HRRT PRN PRN Reason: Shortness of Breath Clonidine HCl (Catapres) 0.1 mg PO BEDTIME [facility] Last Admin: 04/08/20 21:12 Dose: Not Given Documented by: Dexamethasone (Dexamethasone) 2 mg PO DAILY [facility] Last Admin: 04/09/20 08:59 Dose: 2 mg Documented by: Duloxetine HCl (Cymbalta) 60 mg PO DAILY [facility] Last Admin: 04/09/20 09:01 Dose: 60 mg Documented by: Duloxetine HCl (Cymbalta) 30 mg PO BEDTIME [facility] Last Admin: 04/08/20 21:12 Dose: 30 mg Documented by: Enoxaparin Sodium (Lovenox) 40 mg SUBCUT DAILY [facility] Last Admin: 04/09/20 09:03 Dose: 40 mg Documented by: Fentanyl (Duragesic) 100 mcg TOP Q72H [facility] Last Admin: 04/08/20 06:25 Dose: 100 mcg Documented by: Piperacillin Sod/Tazobactam (Sod 4.5 gm/ Sodium Chloride) 100 mls @ 25 mls/hr IV Q8H [facility] Last Admin: 04/09/20 08:55 Dose: 25 mls/hr Documented by: Vancomycin HCl 0.75 gm/ Sodium (Chloride) 250 mls @ 250 mls/hr IV Q24H [facility] Last Admin: 04/08/20 18:25 Dose: 250 mls/hr Documented by: Ibuprofen (Motrin) 600 mg PO Q6H PRN PRN Reason: Pain Last Admin: 04/08/20 21:46 Dose: 600 mg Documented by: Lactulose (Cephulac) 20 gm PO BID [facility] Last Admin: 04/09/20 09:01 Dose: 20 gm Documented by: Levetiracetam (Keppra) 1,000 mg PO Q8H [facility] Last Admin: 04/09/20 13:46 Dose: 1,000 mg Documented by: Melatonin (Melatonin) 21 mg PO BEDTIME [facility] Last Admin: 04/08/20 21:08 Dose: 21 mg Documented by: Metoclopramide HCl (Reglan) 10 mg PO QID [facility] Last Admin: 04/09/20 13:46 Dose: 10 mg Documented by: Oxycodone HCl (Oxycontin) 20 mg PO BID [facility] Last Admin: 04/09/20 09:01 Dose: 20 mg Documented by: Senna/Docusate Sodium (Senna Plus) 2 tab PO BID [facility] Last Admin: 04/09/20 09:00 Dose: 2 tab Documented by: Sodium Chloride (Saline Flush) 10 ml FLUSH ASDIRECTED PRN PRN Reason: Keep Vein Open Last Admin: 04/07/20 15:30 Dose: 10 ml Documented by: Vancomycin HCl (Pharmacy To Dose - Vancomycin) 1 dose .XX ASDIRECTED PRN PRN Reason: RX TO DOSE VANCO Discontinued Medications Albuterol/Ipratropium (Duoneb 3.0-0.5 Mg/3 Ml) 3 ml NEB ONETIME ONE Stop: 04/07/20 14:47 Last Admin: 04/07/20 15:00 Dose: 3 ml Documented by: Albuterol/Ipratropium (Duoneb 3.0-0.5 Mg/3 Ml) 3 ml NEB QID PRN PRN Reason: Shortness of Breath Last Admin: 04/09/20 16:28 Dose: 3 ml Documented by: Clonidine HCl (Catapres) 0.1 mg PO DAILY [facility] Clonidine HCl (Catapres) 0.1 mg PO ONETIME ONE Stop: 04/07/20 22:01 Last Admin: 04/07/20 22:08 Dose: 0.1 mg Documented by: Duloxetine HCl (Cymbalta) 90 mg PO DAILY [facility] Duloxetine HCl (Cymbalta) 30 mg PO ONETIME ONE Stop: 04/07/20 22:01 Last Admin: 04/07/20 22:04 Dose: 30 mg Documented by: Fentanyl (Duragesic) 100 mcg TOP Q72H [facility] Last Admin: 04/08/20 01:31 Dose: Not Given Documented by: Hydromorphone HCl (Dilaudid) 0.5 mg IVPUSH ONETIME ONE Stop: 04/07/20 14:49 Last Admin: 04/07/20 15:29 Dose: 0.5 mg Documented by: Sodium Chloride (Normal Saline) 45 mls @ 40 mls/hr IV ASDIRECTED [facility] Last Admin: 04/07/20 16:36 Dose: 40 mls/hr Documented by: Vancomycin HCl 1 gm/ Sodium (Chloride) 250 mls @ 250 mls/hr IV ONETIME ONE Stop: 04/07/20 18:20 Last Admin: 04/07/20 19:48 Dose: 250 mls/hr Documented by: Ceftriaxone Sodium 1 gm/ (Sodium Chloride) 100 mls @ 200 mls/hr IV ONETIME ONE Stop: 04/07/20 17:52 Last Admin: 04/07/20 17:58 Dose: 200 mls/hr Documented by: Dextrose/Lactated Ringer's (Dextrose 5%-Lactated Ringers) 1,000 mls @ 125 mls/hr IV ASDIRECTED [facility] Last Admin: 04/08/20 16:14 Dose: 125 mls/hr Documented by: Lactated Ringer's (Ringers, Lactated) 1,000 mls @ 50 mls/hr IV ASDIRECTED [facility] Iopamidol (Isovue-370 (76%)) 100 ml IVPUSH ONETIME ONE Stop: 04/07/20 16:25 Last Admin: 04/07/20 16:36 Dose: 100 ml Documented by: Melatonin (Melatonin) 21 mg PO ONETIME ONE Stop: 04/07/20 22:01 Last Admin: 04/07/20 22:09 Dose: 21 mg Documented by: Methylprednisolone Sodium Succinate (Solu-Medrol) 125 mg IVPUSH ONETIME ONE Stop: 04/07/20 14:47 Last Admin: 04/07/20 15:28 Dose: 125 mg Documented by: Potassium Chloride (Klor-Con M20) 20 meq PO BID [facility] Stop: 04/09/20 09:01 Last Admin: 04/09/20 09:00 Dose: 20 meq Documented by: Sodium Chloride (Saline Flush) 10 ml FLUSH ONETIME PRN PRN Reason: Keep Vein Open Last Admin: 04/07/20 16:36 Dose: 10 ml Documented by: - Exam Quality Assessment: Supplemental Oxygen (2 liters) General: Alert, Oriented HEENT: Pupils Equal, Pupils Reactive, EOMI, Mucous Membr. Moist/[place] Neck: Supple Lungs: Decreased Breath Sounds, Rales, Wheezing Cardiovascular: Regular Rate, Regular Rhythm GI/Abdominal Exam: Normal Bowel Sounds, Soft, Non-Tender, No Organomegaly, No Distention, No Abnormal Bruit, No Mass, Pelvis Stable (Female) Exam: Deferred Back Exam: Normal Inspection, Full Range of Motion Sepsis Event Note - Evaluation Sepsis Screening Result: No Definite Risk - Focused Exam Vital Signs: Vital Signs Temp Pulse Resp BP Pulse Ox Pulse Ox 04/09/20 16:28 95 04/09/20 16:09 36.4 C 108 H 22 H 98/60 93 L 04/09/20 11:50 36.4 C 110 H 20 97/61 92 L 04/09/20 09:15 97 04/09/20 08:01 36.4 C 95 20 95/65 93 L Date Exam was Performed: 04/09/20 Time Exam was Performed: 16:55 - Problem List & Annotations (1) Weakness SNOMED Code(s): 65738602 Code(s): R53.1 - WEAKNESS Status: Acute Priority: Medium Current Visit: Yes Onset Date: ~04/07/20 Annotation/Comment:: p.t to see./non ambulitory other than few feet with assist.//// no changes (2) Hypoxia SNOMED Code(s): 774554472 Code(s): R09.02 - HYPOXEMIA Status: Acute Priority: High Current Visit: Yes Onset Date: ~04/07/20 Annotation/Comment:: sats 90 on 2 l n.c. breathe sounds decreased throughout / start inhaler (3) Lung cancer SNOMED Code(s): 790947868 Code(s): C34.90 - MALIGNANT NEOPLASM OF UNSP PART OF UNSP BRONCHUS OR LUNG Status: Acute Priority: High Current Visit: Yes Onset Date: ~04/07/20 Qualifiers: Laterality: right Lung location: upper lobe of lung Qualified Code(s): C34.11 - Malignant neoplasm of upper lobe, right bronchus or lung Annotation/Comment:: small cell cancer with known liver and suspected bone mets. discussed progression of tumor and will defer to oncology who suggests stopping immune mod med. for lack of effacacy. discussed hospice and c consult with patient and home going issues (4) Pneumonia SNOMED Code(s): 252510533 Code(s): J18.9 - PNEUMONIA, UNSPECIFIED ORGANISM Status: Acute Priority: Medium Current Visit: Yes Onset Date: ~04/07/20 Qualifiers: Pneumonia type: due to unspecified organism Laterality: bilateral Lung location: lower lobe of lung Qualified Code(s): J18.9 - Pneumonia, unspecified organism (5) Dehydration SNOMED Code(s): 20545860 Code(s): E86.0 - DEHYDRATION Status: Acute Priority: Low Current Visit: Yes Onset Date: ~04/07/20 Annotation/Comment:: euvolemic (6) Constipation SNOMED Code(s): 56927265 Code(s): K59.00 - CONSTIPATION, UNSPECIFIED Status: Acute Current Visit: Yes Qualifiers: Constipation type: drug induced constipation Qualified Code(s): K59.03 - Drug induced constipation Annotation/Comment:: lactulose and reglana nd sennakot started . (7) Constipation due to opioid therapy SNOMED Code(s): 169804783932442 Code(s): K59.03 - DRUG INDUCED CONSTIPATION; T40.2X5A - ADVERSE EFFECT OF OTHER OPIOIDS, INITIAL ENCOUNTER Status: Acute Priority: Medium Current Visit: Yes Onset Date: ~04/07/20 (8) Hyponatremia SNOMED Code(s): 02280639 Code(s): E87.1 - HYPO-OSMOLALITY AND HYPONATREMIA Status: Acute Priority: Medium Current Visit: Yes Onset Date: ~04/07/20 Annotation/Comment:: stable (9) Hypokalemia due to inadequate potassium intake SNOMED Code(s): 06932622 Code(s): E87.6 - HYPOKALEMIA Status: Acute Priority: Low Current Visit: Yes Onset Date: ~04/07/20 Annotation/Comment:: stable - Problem List Review Problem List Initiated/Reviewed/Updated: Yes - My Orders Last 24 Hours: My Active Orders 04/08/20 18:00 Vancomycin 0.75 gm Sodium Chloride 0.9% [Normal Saline] 250 ml IV Q24H 04/08/20 21:00 DULoxetine [Cymbalta] 30 mg PO BEDTIME Lactulose [Cephulac] 20 gm PO BID Melatonin 21 mg PO BEDTIME cloNIDine [Catapres] 0.1 mg PO BEDTIME 04/09/20 16:44 Albuterol/Ipratropium [DuoNeb 3.0-0.5 MG/3 ML] 3 ml NEB Q4HRRT PRN - Plan Plan:: assess: lung cancer s/p radiation with necrotic area on c t scan pneumonia /atelectasis dehydration r/o hypercalcemia 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 weakness profound on steroids . malnutrition. constipation prognosis very poor and discussed with patient and wants admission and will treat pneumonia and discuss with oncology in am . ?transfer to [place] for further paliative treatments ? she is full code. iv meds antibiotics rocephin and zythromax. pain control. treat obstipation constipation monitor nutrition and dietary consult . boh 04/08/20 afebrile vss, i/os hydration improved. feels better o2 3 l n.c.// lungs decreased cor; rrr abd benign. neuro alert and oriented . abd non tender;minimal distention . bs heard. lab: pending discussed her code status and she wishes to be no cpr/ no intubation. called her oncologist and discussing treatment options in light of progression. iv has helped dehydration alot. 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 constipation: chronic obstipation and will start lactulose and sennakot. dehydration improved. pneumonia ? recheck chest xray . copd start nebs sec to severe lung disease. hospice briefly explained and defer until we see what oncology says . prognosis appears poor and more short term and discussed with patient and and they are appreciative of concerns boh 04/09/20 afebrile vss but on 2 liters n.c with sats around 90-94 in bed. iv. hep locked mild tach 110 rr20 with talking b.p stable. voiding well . appetite good p.e lungs crackles left upper lobe. decreased entire rt lung cor rrr no murmur s3/s4 abd benign extrem good perfusion . lab reviewed. chest xray pending reviewed ct scan with oncology and with and this am with patient. she is not receiving benefit form palliative modulator and not candidate for aggressive chemo nor more radiation . discussed [facility] and hospice and they would like to talk with both. discussed lab improved and home going plans including home o2 and home nebs for comfort and ease of breathing . 9q 4-6 hours now . discussed switching to oral antibiotic and will do so in am if cont to do well . a
[2020-04-09] MEDS ORDERED: traZODone 50 MG Tab PO PRN (20:12)
[2020-04-09] MEDS: Melatonin 3 MG Tab PO SCH (21:39)
[2020-04-09] MEDS: cloNIDine 0.1 MG Tab PO SCH (21:45)
[2020-04-10] MEDS: Piperacillin/Tazobactam 4.5 GM in Sodium Chloride 0.9% 100 ML IV SCH (00:58)
[2020-04-10] MEDS: Ibuprofen 600 MG Tab PO PRN (01:04)
[2020-04-10] MEDS: Albuterol/Ipratropium 3.0-0.5 MG/3 ML Neb Soln NEB PRN ×5 (01:20→22:10)
[2020-04-10] MEDS: levETIRAcetam 500 MG Tab PO SCH ×3 (05:56→21:41)
[2020-04-10] MEDS: Lactulose Soln 10 GM/15 ML 30 ML UD Cup PO SCH (08:43)
[2020-04-10] MEDS: oxyCODONE ER 20 MG TAB.ER PO SCH ×2 (08:45→21:39)
[2020-04-10] MEDS: DULoxetine 30 MG Cap PO SCH ×2 (08:47→21:40)
[2020-04-10] MEDS: Potassium Chloride 20 MEQ Tab.ER PO SCH ×2 (08:48→21:41)
[2020-04-10] MEDS: Dexamethasone 4 MG Tab PO SCH (08:48)
[2020-04-10] MEDS: Metoclopramide 10 MG Tab PO SCH (08:48)
[2020-04-10] MEDS: Enoxaparin 40 MG/0.4 ML Syringe SUBCUT SCH (08:49)
--- NOTE | 2020-04-10 09:00 | CR ---
Chest: Portable view of the chest was obtained. Comparison: Prior chest x-ray of 04/08/20. Continuing opacity throughout the right chest is seen. Left lung shows mild increasing densities possibly due to pulmonary vascular redistribution caused by shunting from the right side. Blunting of the lateral left costophrenic angle is seen as well as slight basilar atelectasis. Heart size appears within normal limits as seen on the visualized left side. Bony structures are grossly intact. Elevated right hemidiaphragm is seen which is stable. Impression: 1. Opacity throughout the right chest. 2. Increasing markings within the left chest from prior study raising the possibility of shunt vascularity being shifted from the right side. 3. Slight left basilar atelectasis and mild blunting of the lateral left costophrenic angle. Diagnostic code #3 This report was dictated in MDT
[2020-04-10] MEDS ORDERED: Furosemide 20 MG/2 ML VIAL IVPUSH ONE (10:24)
--- NOTE | 2020-04-10 11:19 | PCM.PN ---
- General Info Date of Service: 04/10/20 Admission Dx/Problem (Free Text): lung cancer/hypoxia/obstipation/weakness/dehydration/hypokalemia.metastatic bone pain Subjective Update: 04/08/20 afebrile vss, i/os hydration improved. feels better o2 3 l n.c.// lungs decreased cor; rrr abd benign. neuro alert and oriented . abd non tender;minimal distention . bs heard. lab: pending discussed her code status and she wishes to be no cpr/ no intubation. called her oncologist and discussing treatment options in light of progression. iv has helped dehydration alot. 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 constipation: chronic obstipation and will start lactulose and sennakot. dehydration improved. pneumonia ? recheck chest xray . copd start nebs sec to severe lung disease. hospice briefly explained and defer until we see what oncology says . prognosis appears poor and more short term and discussed with patient and and they are appreciative of concerns boh 04/09/20 afebrile vss but on 2 liters n.c with sats around 90-94 in bed. iv. hep locked mild tach 110 rr20 with talking b.p stable. voiding well . appetite good p.e lungs crackles left upper lobe. decreased entire rt lung cor rrr no murmur s3/s4 abd benign extrem good perfusion . lab reviewed. chest xray pending reviewed ct scan with oncology and with and this am with patient. she is not receiving benefit form palliative modulator and not candidate for aggressive chemo nor more radiation . discussed hhc and hospice and they would like to talk with both. discussed lab improved and home going plans including home o2 and home nebs for comfort and ease of breathing . 9q 4-6 hours now . discussed switching to oral antibiotic and will do so in am if cont to do well . 04/10/20 afebrile vss 3400/5400 and breathing still dyspniec and sats 90% at rest / desats with few steps going to b.r. mildly dizzy and b.p low norm. p.e. clear on left. little air movement heard on rt. no severe distress but mild tachipnea with talking. abd benign. bs active and bms x 6 with meds started yest. voiding after lasix and chest xray minimal fluid /vasc. on left. on i.v antibiotic day 3 oral phar. with dental decay and solid left mandibular lesion 1-2 cm fixed and non tender. lab hgn 7.7 lytes normalized. crp 11. assess 1 / lung cancer terminal dx and bone pain increasing and will increase fentanyl patch 2/dehydration resolved 3 /lytes normal 4/ hypoxia recommend cont o2 for comfort. 5/anemia : after discussion sec .to fatigue a nd dizziness and sob will tranfuse 2 units prbcs. 6/constipation improving . home healtha nd hospice conulted anticipate dc in am if stable - Review of Systems General: Reports: Weakness, Fatigue Pulmonary: Reports: Shortness of Breath. Denies: Wheezing Cardiovascular: Reports: Dyspnea on Exertion Gastrointestinal: Reports: No Symptoms Genitourinary: Reports: No Symptoms Musculoskeletal: Reports: Shoulder Pain, Hand Pain, Back Pain, Joint Pain Skin: Reports: No Symptoms Neurological: Reports: No Symptoms Psychiatric: Reports: No Symptoms - Patient Data Vitals - Most Recent: Last Vital Signs Temp 36.5 C 04/10/20 08:17 Pulse 96 04/10/20 08:17 Resp 20 04/10/20 08:17 BP 90/52 L 04/10/20 08:17 Pulse Ox 95 04/10/20 08:34 Weight - Most Recent: 46.176 kg I&O - Last 24 Hours: Intake & Output 04/09/20 04/10/20 04/10/20 22:59 06:59 14:59 Intake Total 1911 1246 Output Total 2500 2700 Balance -989 -2298 Lab Results Last 24 Hours: Laboratory Results - last 24 hr 04/09/20 04/09/20 04/10/20 Range/Units 17:45 17:45 05:45 WBC 18.57 H (3.98-10.04) K/mm3 RBC 3.33 L (3.98-5.22) M/mm3 Hgb 7.7 L (11.2-15.7) gm/dl Hct 27.4 L (34.1-44.9) % MCV 82.3 (79.4-94.8) fl MCH 23.1 L (25.6-32.2) pg MCHC 28.1 L (32.2-35.5) g/dl RDW Std Deviation 51.4 H (36.4-46.3) fL Plt Count 430 H D (182-369) K/mm3 MPV 8.0 L (9.4-12.3) fl Neut % (Auto) 90.8 H (34.0-71.1) % Lymph % (Auto) 1.3 L (19.3-51.7) % Bond % (Auto) 6.7 (4.7-12.5) % Eos % (Auto) 0.9 (0.7-5.8) Baso % (Auto) 0.1 (0.1-1.2) % Neut # (Auto) 16.85 H (1.56-6.13) K/mm3 Lymph # (Auto) 0.25 L (1.18-3.74) K/mm3 Bond # (Auto) 1.25 H (0.24-0.36) K/mm3 Eos # (Auto) 0.17 (0.04-0.36) K/mm3 Baso # (Auto) 0.01 (0.01-0.08) K/mm3 Manual Slide Review Abnormal smear Sodium 130 L (136-145) mEq/L Potassium 4.0 (3.5-5.1) mEq/L Chloride 95 L (98-107) mEq/L Carbon Dioxide 30 (21-32) mEq/L Anion Gap 9.0 (5-15) BUN 14 (7-18) mg/dL Creatinine 0.5 L (0.55-1.02) mg/dL Est Cr Clr Drug Dosing 76.35 mL/min Estimated GFR (MDRD) > 60 (>60) mL/min BUN/Creatinine Ratio 28.0 H (14-18) Glucose 136 H (80-115) mg/dL Calcium 9.7 (8.5-10.1) mg/dL C-Reactive Protein (<1.0) mg/dL Vancomycin Trough 5.0 L (10.0-20.0) Blood Type Gel Antibody Screen Crossmatch 04/10/20 04/10/20 Range/Units 05:45 05:45 WBC (3.98-10.04) K/mm3 RBC (3.98-5.22) M/mm3 Hgb (11.2-15.7) gm/dl Hct (34.1-44.9) % MCV (79.4-94.8) fl MCH (25.6-32.2) pg MCHC (32.2-35.5) g/dl RDW Std Deviation (36.4-46.3) fL Plt Count (182-369) K/mm3 MPV (9.4-12.3) fl Neut % (Auto) (34.0-71.1) % Lymph % (Auto) (19.3-51.7) % Bond % (Auto) (4.7-12.5) % Eos % (Auto) (0.7-5.8) Baso % (Auto) (0.1-1.2) % Neut # (Auto) (1.56-6.13) K/mm3 Lymph # (Auto) (1.18-3.74) K/mm3 Bond # (Auto) (0.24-0.36) K/mm3 Eos # (Auto) (0.04-0.36) K/mm3 Baso # (Auto) (0.01-0.08) K/mm3 Manual Slide Review Sodium (136-145) mEq/L Potassium (3.5-5.1) mEq/L Chloride (98-107) mEq/L Carbon Dioxide (21-32) mEq/L Anion Gap (5-15) BUN (7-18) mg/dL Creatinine (0.55-1.02) mg/dL Est Cr Clr Drug Dosing mL/min Estimated GFR (MDRD) (>60) mL/min BUN/Creatinine Ratio (14-18) Glucose (80-115) mg/dL Calcium (8.5-10.1) mg/dL C-Reactive Protein 11.0 H* (<1.0) mg/dL Vancomycin Trough (10.0-20.0) Blood Type O POSITIVE Gel Antibody Screen Negative Crossmatch See Detail [facility]rendon Results Last 24 Hours: Microbiology 04/07/20 17:55 Aerobic Blood Culture - Preliminary Blood - Venous - Lab Draw NO GROWTH AFTER 2 DAYS Anaerobic Blood Culture - Preliminary NO GROWTH AFTER 2 DAYS 04/07/20 17:40 Aerobic Blood Culture - Preliminary Blood - Venous NO GROWTH AFTER 2 DAYS Anaerobic Blood Culture - Preliminary NO GROWTH AFTER 2 DAYS Med Orders - Current: Current Medications Albuterol/Ipratropium (Duoneb 3.0-0.5 Mg/3 Ml) 3 ml NEB Q4HRRT PRN PRN Reason: Shortness of Breath Last Admin: 04/10/20 08:32 Dose: 3 ml Documented by: Amoxicillin/Clavulanate Potassium (Augmentin 875 Mg/125 Mg) 1 tab PO Q12HR [facility] Clonidine HCl (Catapres) 0.1 mg PO BEDTIME [facility] Last Admin: 04/09/20 21:45 Dose: 0.1 mg Documented by: Dexamethasone (Dexamethasone) 2 mg PO DAILY [facility] Last Admin: 04/10/20 08:48 Dose: 2 mg Documented by: Duloxetine HCl (Cymbalta) 60 mg PO DAILY [facility] Last Admin: 04/10/20 08:47 Dose: 60 mg Documented by: Duloxetine HCl (Cymbalta) 30 mg PO BEDTIME [facility] Last Admin: 04/09/20 21:45 Dose: 30 mg Documented by: Enoxaparin Sodium (Lovenox) 40 mg SUBCUT DAILY [facility] Last Admin: 04/10/20 08:49 Dose: 40 mg Documented by: Fentanyl (Duragesic) 100 mcg TOP Q72H [facility] Last Admin: 04/08/20 06:25 Dose: 100 mcg Documented by: Sodium Chloride (Normal Saline) 250 mls @ 10 mls/hr IV ASDIRECTED [facility] Ibuprofen (Motrin) 600 mg PO Q6H PRN PRN Reason: Pain Last Admin: 04/10/20 01:04 Dose: 600 mg Documented by: Lactulose (Cephulac) 20 gm PO DAILY [facility] Levetiracetam (Keppra) 1,000 mg PO Q8H [facility] Last Admin: 04/10/20 05:56 Dose: 1,000 mg Documented by: Melatonin (Melatonin) 21 mg PO BEDTIME [facility] Last Admin: 04/09/20 21:39 Dose: 21 mg Documented by: Metoclopramide HCl (Reglan) 10 mg PO DAILY [facility] Oxycodone HCl (Oxycontin) 20 mg PO BID [facility] Last Admin: 04/10/20 08:45 Dose: 20 mg Documented by: Potassium Chloride (Klor-Con M20) 20 meq PO BID [facility] Last Admin: 04/10/20 08:48 Dose: 20 meq Documented by: Senna/Docusate Sodium (Senna Plus) 2 tab PO DAILY@21 [facility] Sodium Chloride (Saline Flush) 10 ml FLUSH ASDIRECTED PRN PRN Reason: Keep Vein Open Last Admin: 04/07/20 15:30 Dose: 10 ml Documented by: Discontinued Medications Albuterol/Ipratropium (Duoneb 3.0-0.5 Mg/3 Ml) 3 ml NEB ONETIME ONE Stop: 04/07/20 14:47 Last Admin: 04/07/20 15:00 Dose: 3 ml Documented by: Albuterol/Ipratropium (Duoneb 3.0-0.5 Mg/3 Ml) 3 ml NEB QID PRN PRN Reason: Shortness of Breath Last Admin: 04/09/20 16:28 Dose: 3 ml Documented by: Clonidine HCl (Catapres) 0.1 mg PO DAILY [facility] Clonidine HCl (Catapres) 0.1 mg PO ONETIME ONE Stop: 04/07/20 22:01 Last Admin: 04/07/20 22:08 Dose: 0.1 mg Documented by: Duloxetine HCl (Cymbalta) 90 mg PO DAILY [facility] Duloxetine HCl (Cymbalta) 30 mg PO ONETIME ONE Stop: 04/07/20 22:01 Last Admin: 04/07/20 22:04 Dose: 30 mg Documented by: Fentanyl (Duragesic) 100 mcg TOP Q72H [facility] Last Admin: 04/08/20 01:31 Dose: Not Given Documented by: Furosemide (Lasix) 20 mg IVPUSH ONETIME ONE Stop: 04/10/20 10:25 Hydromorphone HCl (Dilaudid) 0.5 mg IVPUSH ONETIME ONE Stop: 04/07/20 14:49 Last Admin: 04/07/20 15:29 Dose: 0.5 mg Documented by: Sodium Chloride (Normal Saline) 45 mls @ 40 mls/hr IV ASDIRECTED [facility] Last Admin: 04/07/20 16:36 Dose: 40 mls/hr Documented by: Vancomycin HCl 1 gm/ Sodium (Chloride) 250 mls @ 250 mls/hr IV ONETIME ONE Stop: 04/07/20 18:20 Last Admin: 04/07/20 19:48 Dose: 250 mls/hr Documented by: Piperacillin Sod/Tazobactam (Sod 4.5 gm/ Sodium Chloride) 100 mls @ 25 mls/hr IV Q8H [facility] Last Admin: 04/10/20 00:58 Dose: 25 mls/hr Documented by: Ceftriaxone Sodium 1 gm/ (Sodium Chloride) 100 mls @ 200 mls/hr IV ONETIME ONE Stop: 04/07/20 17:52 Last Admin: 04/07/20 17:58 Dose: 200 mls/hr Documented by: Dextrose/Lactated Ringer's (Dextrose 5%-Lactated Ringers) 1,000 mls @ 125 mls/hr IV ASDIRECTED [facility] Last Admin: 04/08/20 16:14 Dose: 125 mls/hr Documented by: Vancomycin HCl 0.75 gm/ Sodium (Chloride) 250 mls @ 250 mls/hr IV Q24H [facility] Last Admin: 04/09/20 18:30 Dose: 250 mls/hr Documented by: Lactated Ringer's (Ringers, Lactated) 1,000 mls @ 50 mls/hr IV ASDIRECTED [facility] Vancomycin HCl 0.75 gm/ Sodium (Chloride) 250 mls @ 250 mls/hr IV Q12H [facility] Vancomycin HCl 0.75 gm/ Sodium (Chloride) 250 mls @ 250 mls/hr IV Q12H [facility] Last Admin: 04/10/20 06:46 Dose: 250 mls/hr Documented by: Iopamidol (Isovue-370 (76%)) 100 ml IVPUSH ONETIME ONE Stop: 04/07/20 16:25 Last Admin: 04/07/20 16:36 Dose: 100 ml Documented by: Lactulose (Cephulac) 20 gm PO BID [facility] Last Admin: 04/10/20 08:43 Dose: Not Given Documented by: Melatonin (Melatonin) 21 mg PO ONETIME ONE Stop: 04/07/20 22:01 Last Admin: 04/07/20 22:09 Dose: 21 mg Documented by: Methylprednisolone Sodium Succinate (Solu-Medrol) 125 mg IVPUSH ONETIME ONE Stop: 04/07/20 14:47 Last Admin: 04/07/20 15:28 Dose: 125 mg Documented by: Metoclopramide HCl (Reglan) 10 mg PO QID [facility] Last Admin: 04/10/20 08:48 Dose: 10 mg Documented by: Potassium Chloride (Klor-Con M20) 20 meq PO BID [facility] Stop: 04/09/20 09:01 Last Admin: 04/09/20 09:00 Dose: 20 meq Documented by: Senna/Docusate Sodium (Senna Plus) 2 tab PO BID [facility] Last Admin: 04/10/20 08:44 Dose: 2 tab Documented by: Sodium Chloride (Saline Flush) 10 ml FLUSH ONETIME PRN PRN Reason: Keep Vein Open Last Admin: 04/07/20 16:36 Dose: 10 ml Documented by: Trazodone HCl (Trazodone) 50 mg PO ONETIME PRN PRN Reason: Sleep Stop: 04/09/20 23:59 Last Admin: 04/09/20 21:39 Dose: 50 mg Documented by: Vancomycin HCl (Pharmacy To Dose - Vancomycin) 1 dose .XX ASDIRECTED PRN PRN Reason: RX TO DOSE VANCO - Exam Quality Assessment: Supplemental Oxygen General: Alert, Oriented Lungs: Decreased Breath Sounds, Wheezing Cardiovascular: Regular Rate, Regular Rhythm GI/Abdominal Exam: Normal Bowel Sounds, Soft, Non-Tender, No Organomegaly, No Distention, No Abnormal Bruit, No Mass, Pelvis Stable (Female) Exam: Normal Speculum Exam, Normal Bimanual Exam, Deferred. No: Normal External Exam Back Exam: Normal Inspection, Full Range of Motion Extremities: Normal Inspection, Normal Range of Motion, Non-Tender, No Pedal Edema, Normal Capillary Refill Sepsis Event Note - Evaluation Sepsis Screening Result: Sepsis Risk - Focused Exam Vital Signs: Vital Signs Temp Temp Pulse Pulse Resp BP BP 04/10/20 08:34 04/10/20 08:17 36.5 C 96 20 90/52 L 04/10/20 07:24 36.7 C 111 H 20 92/64 04/10/20 03:47 36.4 C 113 H 20 96/61 04/10/20 01:22 04/09/20 23:22 36.8 C 110 H 20 95/60 Pulse Ox Pulse Ox 04/10/20 08:34 95 04/10/20 08:17 94 L 04/10/20 07:24 91 L 04/10/20 03:47 92 L 04/10/20 01:22 95 04/09/20 23:22 92 L Date Exam was Performed: 04/10/20 Time Exam was Performed: 12:13 - Problem List & Annotations (1) Weakness SNOMED Code(s): 40753743 Code(s): R53.1 - WEAKNESS Status: Acute Priority: Medium Current Visit: Yes Onset Date: ~04/07/20 Annotation/Comment:: p.t to see./non ambulitory other than few feet with assist.//// no changes (2) Hypoxia SNOMED Code(s): 291657266 Code(s): R09.02 - HYPOXEMIA Status: Acute Priority: High Current Visit: Yes Onset Date: ~04/07/20 Annotation/Comment:: sats 90 on 2 l n.c. breathe sounds decreased throughout / start inhaler (3) Lung cancer SNOMED Code(s): 735199960 Code(s): C34.90 - MALIGNANT NEOPLASM OF UNSP PART OF UNSP BRONCHUS OR LUNG Status: Acute Priority: High Current Visit: Yes Onset Date: ~04/07/20 Qualifiers: Laterality: right Lung location: upper lobe of lung Qualified Code(s): C34.11 - Malignant neoplasm of upper lobe, right bronchus or lung Annotation/Comment:: small cell cancer with known liver and suspected bone mets. discussed progression of tumor and will defer to oncology who suggests stopping immune mod med. for lack of effacacy. discussed hospice and c consult with patient and home going issues (4) Pneumonia SNOMED Code(s): 099532379 Code(s): J18.9 - PNEUMONIA, UNSPECIFIED ORGANISM Status: Acute Priority: Medium Current Visit: Yes Onset Date: ~04/07/20 Qualifiers: Pneumonia type: due to unspecified organism Laterality: bilateral Lung location: lower lobe of lung Qualified Code(s): J18.9 - Pneumonia, unspecified organism (5) Dehydration SNOMED Code(s): 09136988 Code(s): E86.0 - DEHYDRATION Status: Acute Priority: Low Current Visit: Yes Onset Date: ~04/07/20 Annotation/Comment:: euvolemic (6) Constipation SNOMED Code(s): 08869876 Code(s): K59.00 - CONSTIPATION, UNSPECIFIED Status: Acute Current Visit: Yes Qualifiers: Constipation type: drug induced constipation Qualified Code(s): K59.03 - Drug induced constipation Annotation/Comment:: lactulose and reglana nd sennakot started . good response. (7) Constipation due to opioid therapy SNOMED Code(s): 635492375744276 Code(s): K59.03 - DRUG INDUCED CONSTIPATION; T40.2X5A - ADVERSE EFFECT OF OTHER OPIOIDS, INITIAL ENCOUNTER Status: Acute Priority: Medium Current Visit: Yes Onset Date: ~04/07/20 Annotation/Comment:: dc home on bowel regiman (8) Hyponatremia SNOMED Code(s): 71353293 Code(s): E87.1 - HYPO-OSMOLALITY AND HYPONATREMIA Status: Acute Priority: Medium Current Visit: Yes Onset Date: ~04/07/20 Annotation/Comment:: stable (9) Hypokalemia due to inadequate potassium intake SNOMED Code(s): 99095959 Code(s): E87.6 - HYPOKALEMIA Status: Acute Priority: Low Current Visit: Yes Onset Date: ~04/07/20 Annotation/Comment:: stable / cont oral k - Problem List Review Problem List Initiated/Reviewed/Updated: Yes - My Orders Last 24 Hours: My Active Orders 04/09/20 16:44 Albuterol/Ipratropium [DuoNeb 3.0-0.5 MG/3 ML] 3 ml NEB Q4HRRT PRN 04/09/20 21:00 Potassium Chloride [Klor-Con M20] 20 meq PO BID 04/10/20 11:15 Sodium Chloride 0.9% [Normal Saline] 250 ml IV ASDIRECTED - Plan Plan:: assess: lung cancer s/p radiation with necrotic area on c t scan pneumonia /atelectasis dehydration r/o hypercalcemia 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 weakness profound on steroids . malnutrition. constipation prognosis very poor and discussed with patient and wants admission and will treat pneumonia and discuss with oncology in am . ?transfer to [place] for further paliative treatments ? she is full code. iv meds antibiotics rocephin and zythromax. pain control. treat obstipation constipation monitor nutrition and dietary consult . boh 04/08/20 afebrile vss, i/os hydration improved. feels better o2 3 l n.c.// lungs decreased cor; rrr abd benign. neuro alert and oriented . abd non tender;minimal distention . bs heard. lab: pending discussed her code status and she wishes to be no cpr/ no intubation. called her oncologist and discussing treatment options in light of progression. iv has helped dehydration alot. 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 constipation: chronic obstipation and will start lactulose and sennakot. dehydration improved. pneumonia ? recheck chest xray . copd start nebs sec to severe lung disease. hospice briefly explained and defer until we see what oncology says . prognosis appears poor and more short term and discussed with patient and and they are appreciative of concerns boh 04/09/20 afebrile vss but on 2 liters n.c with sats around 90-94 in bed. iv. hep locked mild tach 110 rr20 with talking b.p stable. voiding well . appetite good p.e lungs crackles left upper lobe. decreased entire rt lung cor rrr no murmur s3/s4 abd benign extrem good perfusion . lab reviewed. chest xray pending reviewed ct scan with oncology and with and this am with patient. she is not receiving benefit form palliative modulator and not candidate for aggressive chemo nor more radiation . discussed hhc and hospice and they would like to talk with both. discussed lab improved and home going plans including home o2 and home nebs for comfort and ease of breathing . 9q 4-6 hours now . discussed switching to oral antibiotic and will do so in am if cont to do well . 04/10/20 afebrile vss 3400/5400 and breathing still dyspniec and sats 90% at rest / desats with few steps going to b.r. mildly dizzy and b.p low norm. p.e. clear on left. little air movement heard on rt. no severe distress but mild tachipnea with talking. abd benign. bs active and bms x 6 with meds started yest. voiding after lasix and chest xray minimal fluid /vasc. on left. on i.v antibiotic day 3 oral phar. with dental decay and solid left mandibular lesion 1-2 cm fixed and non tender. lab hgn 7.7 lytes normalized. crp 11. assess 1 / lung cancer terminal dx and bone pain increasing and will increase fentanyl patch 2/dehydration resolved 3 /lytes normal 4/ hypoxia recommend cont o2 for comfort. 5/anemia : after discussion sec .to fatigue a nd dizziness and sob will tranfuse 2 units prbcs. 6/constipation improving . home health a nd hospice consulted anticipate dc in am if stable
[2020-04-10] MEDS: Sodium Chloride 0.9% 250 ML IV SCH ×2 (12:00→16:40)
[2020-04-10] MEDS ORDERED: fentaNYL 25 MCG/HR Transdermal Patch TRDERM SCH (13:00)
[2020-04-10] MEDS: Amoxicillin/Clavulanate K 875-125 MG Tab PO SCH (21:38)
[2020-04-10] MEDS: Melatonin 3 MG Tab PO SCH (21:38)
[2020-04-10] MEDS: cloNIDine 0.1 MG Tab PO SCH (21:39)
[2020-04-10] MEDS: traZODone 50 MG Tab PO PRN (21:41)
[2020-04-11] MEDS: Albuterol/Ipratropium 3.0-0.5 MG/3 ML Neb Soln NEB PRN ×4 (01:44→21:43)
[2020-04-11] MEDS: fentaNYL 100 MCG/HR Transdermal Patch TOP SCH (07:54)
[2020-04-11] MEDS: levETIRAcetam 500 MG Tab PO SCH ×3 (08:10→21:20)
[2020-04-11] MEDS: DULoxetine 30 MG Cap PO SCH ×2 (10:17→21:13)
[2020-04-11] MEDS: Dexamethasone 4 MG Tab PO SCH (10:18)
[2020-04-11] MEDS: oxyCODONE ER 20 MG TAB.ER PO SCH ×2 (10:19→21:13)
[2020-04-11] MEDS: Metoclopramide 10 MG Tab PO SCH (10:19)
[2020-04-11] MEDS: Amoxicillin/Clavulanate K 875-125 MG Tab PO SCH ×2 (10:19→21:14)
[2020-04-11] MEDS: Lactulose Soln 10 GM/15 ML 30 ML UD Cup PO SCH (10:20)
[2020-04-11] MEDS: Potassium Chloride 20 MEQ Tab.ER PO SCH (10:25)
--- NOTE | 2020-04-11 11:42 | CR ---
Chest: Portable supine view of the chest was obtained. Comparison: Prior chest x-ray of 04/10/20. Continued opacification of the right hemithorax is seen. Blunting of the lateral left costophrenic angle is noted. Lung markings are mildly increased within the left chest. No other acute finding is seen. Impression: 1. Findings as noted above. 2. No significant change from previous chest x-ray is seen. Diagnostic code #3 This report was dictated in [facility]
--- NOTE | 2020-04-11 11:53 | PCM.PN ---
- General Info Date of Service: 04/11/20 Admission Dx/Problem (Free Text): lung cancer/hypoxia/obstipation/weakness/dehydration/hypokalemia.metastatic bone pain Subjective Update: 04/08/20 afebrile vss, i/os hydration improved. feels better o2 3 l n.c.// lungs decreased cor; rrr abd benign. neuro alert and oriented . abd non tender;minimal distention . bs heard. lab: pending discussed her code status and she wishes to be no cpr/ no intubation. called her oncologist and discussing treatment options in light of progression. iv has helped dehydration alot. 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 constipation: chronic obstipation and will start lactulose and sennakot. dehydration improved. pneumonia ? recheck chest xray . copd start nebs sec to severe lung disease. hospice briefly explained and defer until we see what oncology says . prognosis appears poor and more short term and discussed with patient and and they are appreciative of concerns boh 04/09/20 afebrile vss but on 2 liters n.c with sats around 90-94 in bed. iv. hep locked mild tach 110 rr20 with talking b.p stable. voiding well . appetite good p.e lungs crackles left upper lobe. decreased entire rt lung cor rrr no murmur s3/s4 abd benign extrem good perfusion . lab reviewed. chest xray pending reviewed ct scan with oncology and with and this am with patient. she is not receiving benefit form palliative modulator and not candidate for aggressive chemo nor more radiation . discussed hhc and hospice and they would like to talk with both. discussed lab improved and home going plans including home o2 and home nebs for comfort and ease of breathing . 9q 4-6 hours now . discussed switching to oral antibiotic and will do so in am if cont to do well . 04/10/20 afebrile vss 3400/5400 and breathing still dyspniec and sats 90% at rest / desats with few steps going to b.r. mildly dizzy and b.p low norm. p.e. clear on left. little air movement heard on rt. no severe distress but mild tachipnea with talking. abd benign. bs active and bms x 6 with meds started yest. voiding after lasix and chest xray minimal fluid /vasc. on left. on i.v antibiotic day 3 oral phar. with dental decay and solid left mandibular lesion 1-2 cm fixed and non tender. lab hgn 7.7 lytes normalized. crp 11. assess 1 / lung cancer terminal dx and bone pain increasing and will increase fentanyl patch 2/dehydration resolved 3 /lytes normal 4/ hypoxia recommend cont o2 for comfort. 5/anemia : after discussion sec .to fatigue a nd dizziness and sob will tranfuse 2 units prbcs. 6/constipation improving . home healtha nd hospice conulted anticipate dc in am if stable. boh 04/11/20 afebrile .vss. c/o mild sob at rest and breathing is little work . minimal cough . no chest pains . appetite good and eating well . mouth sores noted form bite avendaño front lower limb. lungs clear left and decreased rt (better air movemnt) cor rrr 60s. thyroid mild deviation skin good turger cool neuro aox4 . s/p transfusion hgn 11. feels less tired today. bms daily now and soft. assess unchanged cbc and crp not decreasing but recheck in am hypoxia on 3 liters . hospice and or home health consult in am . cont current meds . dc plans reviewed with patient .mild anxiety but doing well and cheerful boh Functional Status: Reports: Pain Controlled - Review of Systems General: Reports: No Symptoms HEENT: Reports: No Symptoms Pulmonary: Reports: No Symptoms, Shortness of Breath, Cough, Wheezing Cardiovascular: Reports: No Symptoms, Dyspnea on Exertion Gastrointestinal: Reports: No Symptoms Genitourinary: Reports: No Symptoms Musculoskeletal: Reports: No Symptoms Skin: Reports: No Symptoms Neurological: Reports: No Symptoms, Weakness Psychiatric: Reports: No Symptoms - Patient Data Vitals - Most Recent: Last Vital Signs Temp 36.4 C 04/11/20 08:45 Pulse 121 H 04/11/20 08:45 Resp 24 H 04/11/20 08:45 BP 94/66 04/11/20 08:45 Pulse Ox 92 L 04/11/20 08:45 Weight - Most Recent: 46.176 kg I&O - Last 24 Hours: Intake & Output 04/10/20 04/11/20 04/11/20 22:59 06:59 14:59 Intake Total 2510 1200 Output Total 900 2650 Balance 1610 -1450 Lab Results Last 24 Hours: Laboratory Results - last 24 hr 04/10/20 04/11/20 04/11/20 Range/Units 05:45 06:10 06:10 WBC 25.98 H (3.98-10.04) K/mm3 RBC 4.52 (3.98-5.22) M/mm3 Hgb 11.4 D (11.2-15.7) gm/dl Hct 36.8 (34.1-44.9) % MCV 81.4 (79.4-94.8) fl MCH 25.2 L (25.6-32.2) pg MCHC 31.0 L (32.2-35.5) g/dl RDW Std Deviation 50.3 H (36.4-46.3) fL Plt Count 359 (182-369) K/mm3 MPV 8.0 L (9.4-12.3) fl Neut % (Auto) 90.3 H (34.0-71.1) % Lymph % (Auto) 1.8 L (19.3-51.7) % Elmore % (Auto) 6.3 (4.7-12.5) % Eos % (Auto) 1.0 (0.7-5.8) Baso % (Auto) 0.1 (0.1-1.2) % Neut # (Auto) 23.46 H (1.56-6.13) K/mm3 Lymph # (Auto) 0.46 L (1.18-3.74) K/mm3 [place] # (Auto) 1.64 H (0.24-0.36) K/mm3 Eos # (Auto) 0.27 (0.04-0.36) K/mm3 Baso # (Auto) 0.02 (0.01-0.08) K/mm3 Manual Slide Review Abnormal smear Sodium 130 L (136-145) mEq/L Potassium 4.6 (3.5-5.1) mEq/L Chloride 95 L (98-107) mEq/L Carbon Dioxide 31 (21-32) mEq/L Anion Gap 8.6 (5-15) BUN 13 (7-18) mg/dL Creatinine 0.5 L (0.55-1.02) mg/dL Est Cr Clr Drug Dosing 82.86 mL/min Estimated GFR (MDRD) > 60 (>60) mL/min BUN/Creatinine Ratio 26.0 H (14-18) Glucose 97 (80-115) mg/dL Calcium 10.0 (8.5-10.1) mg/dL Total Bilirubin 0.5 (0.2-1.0) mg/dL AST 19 (15-37) U/L ALT 23 (14-59) U/L Alkaline Phosphatase 81 (46-116) U/L C-Reactive Protein 14.7 H* (<1.0) mg/dL Total Protein 5.5 L (6.4-8.2) g/dl Albumin 1.9 L (3.4-5.0) g/dl Globulin 3.6 gm/dL Albumin/Globulin Ratio 0.5 L (1-2) Blood Type O POSITIVE Gel Antibody Screen Negative Crossmatch See Detail Brendon Results Last 24 Hours: Microbiology 04/07/20 17:55 Aerobic Blood Culture - Preliminary Blood - Venous - Lab Draw NO GROWTH AFTER 3 DAYS Anaerobic Blood Culture - Preliminary NO GROWTH AFTER 3 DAYS 04/07/20 17:40 Aerobic Blood Culture - Preliminary Blood - Venous NO GROWTH AFTER 3 DAYS Anaerobic Blood Culture - Preliminary NO GROWTH AFTER 3 DAYS Med Orders - Current: Current Medications Albuterol/Ipratropium (Duoneb 3.0-0.5 Mg/3 Ml) 3 ml NEB Q4HRRT PRN PRN Reason: Shortness of Breath Last Admin: 04/11/20 08:29 Dose: 3 ml Documented by: Amoxicillin/Clavulanate Potassium (Augmentin 875 Mg/125 Mg) 1 tab PO Q12HR [facility] Last Admin: 04/11/20 10:19 Dose: 1 tab Documented by: Clonidine HCl (Catapres) 0.1 mg PO BEDTIME PATRICA Last Admin: 04/10/20 21:39 Dose: 0.1 mg Documented by: Dexamethasone (Dexamethasone) 2 mg PO DAILY [facility] Last Admin: 04/11/20 10:18 Dose: 2 mg Documented by: Diphenhydr/Magaldrate/Simeth/Lidoca (First-Mouthwash Blm Susp) 30 ml PO TIDAC [facility] Duloxetine HCl (Cymbalta) 60 mg PO DAILY [facility] Last Admin: 04/11/20 10:17 Dose: 60 mg Documented by: Duloxetine HCl (Cymbalta) 30 mg PO BEDTIME [facility] Last Admin: 04/10/20 21:40 Dose: 30 mg Documented by: Fentanyl (Duragesic) 100 mcg TOP Q72H [facility] Last Admin: 04/11/20 07:54 Dose: Not Given Documented by: Fentanyl (Duragesic) 25 mcg TRDERM Q72H [facility] Last Admin: 04/10/20 14:00 Dose: 25 mcg Documented by: Ibuprofen (Motrin) 600 mg PO Q6H PRN PRN Reason: Pain Last Admin: 04/10/20 01:04 Dose: 600 mg Documented by: Lactulose (Cephulac) 20 gm PO DAILY [facility] Last Admin: 04/11/20 10:20 Dose: 20 gm Documented by: Levetiracetam (Keppra) 1,000 mg PO Q8H [facility] Last Admin: 04/11/20 08:10 Dose: 1,000 mg Documented by: Melatonin (Melatonin) 21 mg PO BEDTIME [facility] Last Admin: 04/10/20 21:38 Dose: 21 mg Documented by: Metoclopramide HCl (Reglan) 10 mg PO DAILY [facility] Last Admin: 04/11/20 10:19 Dose: 10 mg Documented by: Miscellaneous Information (Remove Patch) 1 ea TRDERM Q72H [facility] Oxycodone HCl (Oxycontin) 20 mg PO BID [facility] Last Admin: 04/11/20 10:19 Dose: 20 mg Documented by: Senna/Docusate Sodium (Senna Plus) 2 tab PO DAILY@21 [facility] Last Admin: 04/10/20 21:40 Dose: 2 tab Documented by: Sodium Chloride (Saline Flush) 10 ml FLUSH ASDIRECTED PRN PRN Reason: Keep Vein Open Last Admin: 04/07/20 15:30 Dose: 10 ml Documented by: Trazodone HCl (Trazodone) 50 mg PO BEDTIME PRN PRN Reason: Sleep Last Admin: 04/10/20 21:41 Dose: 50 mg Documented by: Discontinued Medications Albuterol/Ipratropium (Duoneb 3.0-0.5 Mg/3 Ml) 3 ml NEB ONETIME ONE Stop: 04/07/20 14:47 Last Admin: 04/07/20 15:00 Dose: 3 ml Documented by: Albuterol/Ipratropium (Duoneb 3.0-0.5 Mg/3 Ml) 3 ml NEB QID PRN PRN Reason: Shortness of Breath Last Admin: 04/09/20 16:28 Dose: 3 ml Documented by: Clonidine HCl (Catapres) 0.1 mg PO DAILY [facility] Clonidine HCl (Catapres) 0.1 mg PO ONETIME ONE Stop: 04/07/20 22:01 Last Admin: 04/07/20 22:08 Dose: 0.1 mg Documented by: Duloxetine HCl (Cymbalta) 90 mg PO DAILY [facility] Duloxetine HCl (Cymbalta) 30 mg PO ONETIME ONE Stop: 04/07/20 22:01 Last Admin: 04/07/20 22:04 Dose: 30 mg Documented by: Enoxaparin Sodium (Lovenox) 40 mg SUBCUT DAILY [facility] Last Admin: 04/10/20 08:49 Dose: 40 mg Documented by: Fentanyl (Duragesic) 100 mcg TOP Q72H [facility] Last Admin: 04/08/20 01:31 Dose: Not Given Documented by: Furosemide (Lasix) 20 mg IVPUSH ONETIME ONE Stop: 04/10/20 10:25 Last Admin: 04/10/20 16:03 Dose: 20 mg Documented by: Hydromorphone HCl (Dilaudid) 0.5 mg IVPUSH ONETIME ONE Stop: 04/07/20 14:49 Last Admin: 04/07/20 15:29 Dose: 0.5 mg Documented by: Sodium Chloride (Normal Saline) 45 mls @ 40 mls/hr IV ASDIRECTED [facility] Last Admin: 04/07/20 16:36 Dose: 40 mls/hr Documented by: Vancomycin HCl 1 gm/ Sodium (Chloride) 250 mls @ 250 mls/hr IV ONETIME ONE Stop: 04/07/20 18:20 Last Admin: 04/07/20 19:48 Dose: 250 mls/hr Documented by: Piperacillin Sod/Tazobactam (Sod 4.5 gm/ Sodium Chloride) 100 mls @ 25 mls/hr IV Q8H [facility] Last Admin: 04/10/20 00:58 Dose: 25 mls/hr Documented by: Ceftriaxone Sodium 1 gm/ (Sodium Chloride) 100 mls @ 200 mls/hr IV ONETIME ONE Stop: 04/07/20 17:52 Last Admin: 04/07/20 17:58 Dose: 200 mls/hr Documented by: Dextrose/Lactated Ringer's (Dextrose 5%-Lactated Ringers) 1,000 mls @ 125 m ls/hr IV ASDIRECTED [facility] Last Admin: 04/08/20 16:14 Dose: 125 mls/hr Documented by: Vancomycin HCl 0.75 gm/ Sodium (Chloride) 250 mls @ 250 mls/hr IV Q24H [facility] Last Admin: 04/09/20 18:30 Dose: 250 mls/hr Documented by: Lactated Ringer's (Ringers, Lactated) 1,000 mls @ 50 mls/hr IV ASDIRECTED [facility] Vancomycin HCl 0.75 gm/ Sodium (Chloride) 250 mls @ 250 mls/hr IV Q12H [facility] Vancomycin HCl 0.75 gm/ Sodium (Chloride) 250 mls @ 250 mls/hr IV Q12H [facility] Last Admin: 04/10/20 06:46 Dose: 250 mls/hr Documented by: Sodium Chloride (Normal Saline) 250 mls @ 10 mls/hr IV ASDIRECTED [facility] Last Admin: 04/10/20 16:40 Dose: 10 mls/hr Documented by: Iopamidol (Isovue-370 (76%)) 100 ml IVPUSH ONETIME ONE Stop: 04/07/20 16:25 Last Admin: 04/07/20 16:36 Dose: 100 ml Documented by: Lactulose (Cephulac) 20 gm PO BID [facility] Last Admin: 04/10/20 08:43 Dose: Not Given Documented by: Melatonin (Melatonin) 21 mg PO ONETIME ONE Stop: 04/07/20 22:01 Last Admin: 04/07/20 22:09 Dose: 21 mg Documented by: Methylprednisolone Sodium Succinate (Solu-Medrol) 125 mg IVPUSH ONETIME ONE Stop: 04/07/20 14:47 Last Admin: 04/07/20 15:28 Dose: 125 mg Documented by: Metoclopramide HCl (Reglan) 10 mg PO QID [facility] Last Admin: 04/10/20 08:48 Dose: 10 mg Documented by: Potassium Chloride (Klor-Con M20) 20 meq PO BID [facility] Stop: 04/09/20 09:01 Last Admin: 04/09/20 09:00 Dose: 20 meq Documented by: Potassium Chloride (Klor-Con M20) 20 meq PO BID [facility] Last Admin: 04/11/20 10:25 Dose: Not Given Documented by: Senna/Docusate Sodium (Senna Plus) 2 tab PO BID [facility] Last Admin: 04/10/20 08:44 Dose: 2 tab Documented by: Sodium Chloride (Saline Flush) 10 ml FLUSH ONETIME PRN PRN Reason: Keep Vein Open Last Admin: 04/07/20 16:36 Dose: 10 ml Documented by: Trazodone HCl (Trazodone) 50 mg PO ONETIME PRN PRN Reason: Sleep Stop: 04/09/20 23:59 Last Admin: 04/09/20 21:39 Dose: 50 mg Documented by: Vancomycin HCl (Pharmacy To Dose - Vancomycin) 1 dose .XX ASDIRECTED PRN PRN Reason: RX TO DOSE VANCO - Exam Quality Assessment: Supplemental Oxygen General: Alert, Oriented HEENT: Pupils Equal, Pupils Reactive, EOMI, Mucous Membr. Moist/[place] Neck: Supple Lungs: Normal Respiratory Effort, Decreased Breath Sounds, Wheezing. No: Clear to Auscultation Cardiovascular: Regular Rate, Regular Rhythm GI/Abdominal Exam: Normal Bowel Sounds, Soft, Non-Tender, No Organomegaly, No Distention, No Abnormal Bruit, No Mass, Pelvis Stable (Female) Exam: Normal External Exam, Normal Speculum Exam, Normal Bimanual Exam Back Exam: Normal Inspection, Full Range of Motion Extremities: Normal Inspection, Normal Range of Motion, Non-Tender, No Pedal Edema, Normal Capillary Refill Skin: Warm, Dry, Intact Wound/Incisions: Healing Well Neurological: No New Focal Deficit Psy/Mental Status: Alert, Normal Affect, Normal Mood Sepsis Event Note - Evaluation Sepsis Screening Result: Sepsis Risk - Focused Exam Vital Signs: Vital Signs Temp Pulse Resp BP Pulse Ox Pulse Ox 04/11/20 08:45 36.4 C 121 H 24 H 94/66 92 L 04/11/20 08:31 93 L 04/11/20 05:59 36.3 C 106 H 16 101/69 95 04/11/20 01:46 92 L 04/11/20 00:49 36.6 C 99 20 94/62 91 L Date Exam was Performed: 04/11/20 Time Exam was Performed: 11:48 - Problem List & Annotations (1) Weakness SNOMED Code(s): 61994764 Code(s): R53.1 - WEAKNESS Status: Acute Priority: Medium Current Visit: Yes Onset Date: ~04/07/20 Annotation/Comment:: p.t to see./non ambulitory other than few feet with assist.//// no changes (2) Hypoxia SNOMED Code(s): 677185416 Code(s): R09.02 - HYPOXEMIA Status: Acute Priority: High Current Visit: Yes Onset Date: ~04/07/20 Annotation/Comment:: sats 90 on 2 l n.c. breathe sounds decreased throughout / start inhaler (3) Lung cancer SNOMED Code(s): 348736329 Code(s): C34.90 - MALIGNANT NEOPLASM OF UNSP PART OF UNSP BRONCHUS OR LUNG Status: Acute Priority: High Current Visit: Yes Onset Date: ~04/07/20 Qualifiers: Laterality: right Lung location: upper lobe of lung Qualified Code(s): C34.11 - Malignant neoplasm of upper lobe, right bronchus or lung Annotation/Comment:: small cell cancer with known liver and suspected bone mets. discussed progression of tumor and will defer to oncology who suggests stopping immune mod med. for lack of effacacy. discussed hospice and c consult with patient and home going issues (4) Pneumonia SNOMED Code(s): 230897181 Code(s): J18.9 - PNEUMONIA, UNSPECIFIED ORGANISM Status: Acute Priority: Medium Current Visit: Yes Onset Date: ~04/07/20 Qualifiers: Pneumonia type: due to unspecified organism Laterality: bilateral Lung location: lower lobe of lung Qualified Code(s): J18.9 - Pneumonia, unspecified organism (5) Dehydration SNOMED Code(s): 07384072 Code(s): E86.0 - DEHYDRATION Status: Acute Priority: Low Current Visit: Yes Onset Date: ~04/07/20 Annotation/Comment:: euvolemic (6) Constipation SNOMED Code(s): 83905155 Code(s): K59.00 - CONSTIPATION, UNSPECIFIED Status: Acute Current Visit: Yes Qualifiers: Constipation type: drug induced constipation Qualified Code(s): K59.03 - Drug induced constipation Annotation/Comment:: lactulose and reglana nd sennakot started . good response. (7) Constipation due to opioid therapy SNOMED Code(s): 416128793547658 Code(s): K59.03 - DRUG INDUCED CONSTIPATION; T40.2X5A - ADVERSE EFFECT OF OTHER OPIOIDS, INITIAL ENCOUNTER Status: Acute Priority: Medium Current Visit: Yes Onset Date: ~04/07/20 Annotation/Comment:: dc home on bowel regiman (8) Hyponatremia SNOMED Code(s): 53451708 Code(s): E87.1 - HYPO-OSMOLALITY AND HYPONATREMIA Status: Acute Priority: Medium Current Visit: Yes Onset Date: ~04/07/20 Annotation/Comment:: stable (9) Hypokalemia due to inadequate potassium intake SNOMED Code(s): 92436195 Code(s): E87.6 - HYPOKALEMIA Status: Acute Priority: Low Current Visit: Yes Onset Date: ~04/07/20 Annotation/Comment:: stable / cont oral k (10) Anemia SNOMED Code(s): 775639297 Code(s): D64.9 - ANEMIA, UNSPECIFIED Status: Acute Priority: Medium Current Visit: Yes Onset Date: ~04/10/20 Qualifiers: Other causes of anemia: chronic disease, neoplastic Annotation/Comment:: transused 2 units prbcs with lasix . - Problem List Review Problem List Initiated/Reviewed/Updated: Yes - My Orders Last 24 Hours: My Active Orders 04/10/20 13:00 fentaNYL [Duragesic] 25 mcg TRDERM Q72H 04/10/20 21:23 traZODone 50 mg PO BEDTIME PRN 04/13/20 13:00 Remove Patch 1 ea TRDERM Q72H - Plan Plan:: assess: lung cancer s/p radiation with necrotic area on c t scan pneumonia /atelectasis dehydration r/o hypercalcemia 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 weakness profound on steroids . malnutrition. constipation prognosis very poor and discussed with patient and wants admission and will treat pneumonia and discuss with oncology in am . ?transfer to [place] for further paliative treatments ? she is full code. iv meds antibiotics rocephin and zythromax. pain control. treat obstipation constipation monitor nutrition and dietary consult . boh 04/08/20 afebrile vss, i/os hydration improved. feels better o2 3 l n.c.// lungs decreased cor; rrr abd benign. neuro alert and oriented . abd non tender;minimal distention . bs heard. lab: pending discussed her code status and she wishes to be no cpr/ no intubation. called her oncologist and discussing treatment options in light of progression. iv has helped dehydration alot. 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 constipation: chronic obstipation and will start lactulose and sennakot. dehydration improved. pneumonia ? recheck chest xray . copd start nebs sec to severe lung disease. hospice briefly explained and defer until we see what oncology says . prognosis appears poor and more short term and discussed with patient and and they are appreciative of concerns boh 04/09/20 afebrile vss but on 2 liters n.c with sats around 90-94 in bed. iv. hep locked mild tach 110 rr20 with talking b.p stable. voiding well . appetite good p.e lungs crackles left upper lobe. decreased entire rt lung cor rrr no murmur s3/s4 abd benign extrem good perfusion . lab reviewed. chest xray pending reviewed ct scan with oncology and with and this am with patient. she is not receiving benefit form palliative modulator and not candidate for aggressive chemo nor more radiation . discussed hhc and hospice and they would like to talk with both. discussed lab improved and home going plans including home o2 and home nebs for comfort and ease of breathing . 9q 4-6 hours now . discussed switching to oral antibiotic and will do so in am if cont to do well . 04/10/20 afebrile vss 3400/5400 and breathing still dyspniec and sats 90% at rest / desats with few steps going to b.r. mildly dizzy and b.p low norm. p.e. clear on left. little air movement heard on rt. no severe distress but mild tachipnea with talking. abd benign. bs active and bms x 6 with meds started yest. voiding after lasix and chest xray minimal fluid /vasc. on left. on i.v antibiotic day 3 oral phar. with dental decay and solid left mandibular lesion 1-2 cm fixed and non tender. lab hgn 7.7 lytes normalized. crp 11. assess 1 / lung cancer terminal dx and bone pain increasing and will increase fentanyl patch 2/dehydration resolved 3 /lytes normal 4/ hypoxia recommend cont o2 for comfort. 5/anemia : after discussion sec .to fatigue a nd dizziness and sob will tranfuse 2 units prbcs. 6/constipation improving . home health a nd hospice consulted anticipate dc in am if stable 04/11/20 afebrile .vss. c/o mild sob at rest and breathing is little work . minimal cough . no chest pains . appetite good and eating well . mouth sores noted form bite avendaño front lower limb. lungs clear left and decreased rt (better air movemnt) cor rrr 60s. thyroid mild deviation skin good turger cool neuro aox4 . s/p transfusion hgn 11. feels less tired today. bms daily now and soft. assess unchanged cbc and crp not decreasing but recheck in am hypoxia on 3 liters . hospice and or home health consult in am . cont current meds . dc plans reviewed with patient .mild anxiety but doing well and cheerful boh
[2020-04-11] MEDS: Diphenhydramine/Lidocaine/MagAl/Simethicone 119 ML Bottle PO SCH ×2 (12:40→16:39)
[2020-04-11] MEDS: Ibuprofen 600 MG Tab PO PRN (14:44)
[2020-04-11] MEDS: Melatonin 3 MG Tab PO SCH (21:12)
[2020-04-11] MEDS: cloNIDine 0.1 MG Tab PO SCH (21:13)
[2020-04-11] MEDS: traZODone 50 MG Tab PO PRN (21:20)
[2020-04-12] MEDS: levETIRAcetam 500 MG Tab PO SCH ×3 (06:00→21:53)
[2020-04-12] MEDS: Albuterol/Ipratropium 3.0-0.5 MG/3 ML Neb Soln NEB PRN (06:27)
[2020-04-12] MEDS: Diphenhydramine/Lidocaine/MagAl/Simethicone 119 ML Bottle PO SCH ×3 (07:19→16:57)
[2020-04-12] MEDS: DULoxetine 30 MG Cap PO SCH ×2 (08:47→20:06)
[2020-04-12] MEDS: Metoclopramide 10 MG Tab PO SCH (08:48)
[2020-04-12] MEDS: Dexamethasone 4 MG Tab PO SCH (08:48)
[2020-04-12] MEDS: oxyCODONE ER 20 MG TAB.ER PO SCH ×2 (08:49→20:00)
[2020-04-12] MEDS: Amoxicillin/Clavulanate K 875-125 MG Tab PO SCH ×2 (08:49→20:03)
[2020-04-12] MEDS: Lactulose Soln 10 GM/15 ML 30 ML UD Cup PO SCH (10:43)
[2020-04-12] MEDS: Ibuprofen 600 MG Tab PO PRN (13:10)
[2020-04-12] MEDS: cloNIDine 0.1 MG Tab PO SCH (20:03)
[2020-04-12] MEDS: Melatonin 3 MG Tab PO SCH (20:05)
[2020-04-12] MEDS ORDERED: Ondansetron 4 MG Tab.DIS PO PRN (23:45)
[2020-04-13] MEDS: Ibuprofen 600 MG Tab PO PRN (05:17)
[2020-04-13] MEDS: levETIRAcetam 500 MG Tab PO SCH ×2 (05:17→14:15)
[2020-04-13] MEDS: Diphenhydramine/Lidocaine/MagAl/Simethicone 119 ML Bottle PO SCH ×2 (08:40→11:01)
[2020-04-13] MEDS: DULoxetine 30 MG Cap PO SCH (08:41)
[2020-04-13] MEDS: Metoclopramide 10 MG Tab PO SCH (08:41)
[2020-04-13] MEDS: Dexamethasone 4 MG Tab PO SCH (08:42)
[2020-04-13] MEDS: Amoxicillin/Clavulanate K 875-125 MG Tab PO SCH (08:43)
[2020-04-13] MEDS: oxyCODONE ER 20 MG TAB.ER PO SCH (08:44)
[2020-04-13] MEDS: Lactulose Soln 10 GM/15 ML 30 ML UD Cup PO SCH (08:45)
[2020-04-13] MEDS ORDERED: [UNRECOGNIZED DRUG - REMARK] TRDERM SCH ×2 (09:00→12:00)
[2020-04-13] MEDS ORDERED: Enoxaparin 40 MG/0.4 ML Syringe SUBCUT SCH (09:00)
--- NOTE | 2020-04-13 11:56 | PCM.PN ---
- General Info Date of Service: 04/12/20 Admission Dx/Problem (Free Text): Admitted with weakness/ hypoxia/ lung cancer/ pneumonia/ dehydration/ constipation/ hyponatremia/ hypokalemia/ anemia 64 year old female admitted from the ER that presented with shortness of breath and has 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 Grijalva. 04/08/20 She is afebrile Her vital signs are stable Her lungs have decreased She is wearing O2 with nasal cannulas at 3L Her abdomen is nontender with minimal distention and bowel sounds were heard She is alert and orientated States that she feels better Her dehydration has improved with IV antibiotics of Rocephin and Zithromax States that she has chronic constipation problems that she deals with Discussed her code status and she wishes to be no CPR and no intubation Discussed that her labs are still pending Discussed rechecking her chest x-ray for possible pneumonia Discussed starting nebulizer treatments for COPD and sever lung disease 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 Discussed pain control Discussed starting lactulose and Senokot for chronic constipation Discussed monitoring her nutrition and a dietary consult Discussed calling her oncologist and discussing treatment options in light of progression Discussed possible transfer to [place] for further palliative treatments depending on what oncology says Discussed hospice care briefly and explained what they could and would help with and decided to defer until we see what oncology says Prognosis appears poor and more short term and discussed with patient and and they are appreciative of concerns 04/09/20 She is afebrile Her vital signs are stable with a respiratory rate in the 20s with talking and mild tachycardia of 110 She is wearing O2 with nasal cannulas at 2L and her stats are 90-94 while in bed She has lung crackles in the left upper lobe and decreased breath sounds in the entire right lung She has good extremity perfusion Her abdomen is benign She is not receiving any benefit form palliative modulator and is not candidate for aggressive chemo or for more radiation She is alert and orientated States that she has had a good appetite States that she has been voiding well Her chest x-ray is pending Reviewed and discussed CT scan with oncology and with and patient Discussed home health care and hospice and they would like to talk with both Discussed lab improvements and discharge plans including home O2 and nebulizer treatments for comfort and ease of breathing, she is currently doing treatments every 4-6 hours Discussed switching to oral antibiotic and will do so in am if continuing to do well 04/10/20 She is afebrile Her vital signs are stable with her blood pressure low to normal range 3400/5400 and breathing still dyspneic with stats in the 90% at rest and she destats with few steps going to the bathroom No sever distress but mild tachypnea with talking Her lung sounds are clear on the left and she has little air movement that is heard on the right Her abdomen is benign with active bowel sounds and she had 6 bowel movements since starting medication for constipation yesterday She is voiding after taking Lasix She has oral phar. with dental decay and solid left mandibular lesion 1-2 cm fixed and non tender She is alert and orientated She is on day 3 of IV antibiotics States that she has had a good appetite States that she has been voiding well States that she has mild dizziness Discussed that her constipation is improving Discussed her dehydration has resolved Discussed that her chest x-ray showed minimal fluid and vasc. on the left Discussed her labs with HGN 7.7 and electrolytes normalized with her CRP 11 Discussed transfusion of 2 units prbcs for anemia secondary to fatigue, dizziness, and shortness of breath Discussed that her lung cancer is a terminal diagnose and with her bone pain increasing we will increase that fentanyl patch as well Discussed hypoxia and recommend continuing O2 for comfort Discussed consult with home health care and hospice Discussed discharging tomorrow if stable 04/11/20 She is afebrile Her vital signs are stable with heart rate in the 60s She has mouth sores that are noted from bite avendaño on front lower lip She is wearing O2 with nasal cannulas at 3L Her left side lungs are clear and she has decreased sounds on the right side but it has some better air movement Her thyroid has mild deviation Her bowel movements are now regular and soft Her skin is cool and has good turgor She is alert and orientated x4 States that she feel less tired today She has mild anxiety but is doing well and is cheerful States that she has had a good appetite and has been eating well States that she has been voiding well and having bowel movements daily States that she has mild shortness of breath and that breathing is a little work States that she has a slight cough but that isn't something new for her and has had it for years Denies any chest pains Discussed her HGN 11 now after transfusion yesterday Discussed continuing current medications and treatments Discussed labs and she has an unchanged CBC and CRP, although they are not decreasing we will rechecking them tomorrow morning Discussed home health care and hospice consults for tomorrow morning Discussed discharge plans and reviewed with patient 04/12/2020 She is afebrile Her vital signs are stable She is wearing O2 with nasal cannulas at 3L Her left side lungs are clear and she has diminished breath sounds on the right side She has slight edema all over her body She has a 2x1 decubitus coccyx ulcer She is alert and orientated States that she is doing pretty well States that she is comfortable She is feeling fatigued and has weakness States that she is unable to get out of bed States that she has had a good appetite and has been eating well States that she has been voiding well and having bowel movements daily Discussed continuing all medications and treatments Discussed rechecking labs Discussed hospice consult Discussed possible discharge to home tomorrow if she is stable Subjective Update: Admitted with weakness/ hypoxia/ lung cancer/ pneumonia/ dehydration/ constipation/ hyponatremia/ hypokalemia/ anemia 64 year old female admitted from the ER that presented with shortness of breath and has 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 Grijalva. 04/08/20 She is afebrile Her vital signs are stable Her lungs have decreased She is wearing O2 with nasal cannulas at 3L Her abdomen is nontender with minimal distention and bowel sounds were heard She is alert and orientated States that she feels better Her dehydration has improved with IV antibiotics of Rocephin and Zithromax States that she has chronic constipation problems that she deals with Discussed her code status and she wishes to be no CPR and no intubation Discussed that her labs are still pending Discussed rechecking her chest x-ray for possible pneumonia Discussed starting nebulizer treatments for COPD and sever lung disease 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 Discussed pain control Discussed starting lactulose and Senokot for chronic constipation Discussed monitoring her nutrition and a dietary consult Discussed calling her oncologist and discussing treatment options in light of progression Discussed possible transfer to [place] for further palliative treatments depending on what oncology says Discussed hospice care briefly and explained what they could and would help with and decided to defer until we see what oncology says Prognosis appears poor and more short term and discussed with patient and and they are appreciative of concerns 04/09/20 She is afebrile Her vital signs are stable with a respiratory rate in the 20s with talking and mild tachycardia of 110 She is wearing O2 with nasal cannulas at 2L and her stats are 90-94 while in bed She has lung crackles in the left upper lobe and decreased breath sounds in the entire right lung She has good extremity perfusion Her abdomen is benign She is not receiving any benefit form palliative modulator and is not candidate for aggressive chemo or for more radiation She is alert and orientated States that she has had a good appetite States that she has been voiding well Her chest x-ray is pending Reviewed and discussed CT scan with oncology and with and patient Discussed home health care and hospice and they would like to talk with both Discussed lab improvements and discharge plans including home O2 and nebulizer treatments for comfort and ease of breathing, she is currently doing treatments every 4-6 hours Discussed switching to oral antibiotic and will do so in am if continuing to do well 04/10/20 She is afebrile Her vital signs are stable with her blood pressure low to normal range 3400/5400 and breathing still dyspneic with stats in the 90% at rest and she destats with few steps going to the bathroom No sever distress but mild tachypnea with talking Her lung sounds are clear on the left and she has little air movement that is heard on the right Her abdomen is benign with active bowel sounds and she had 6 bowel movements since starting medication for constipation yesterday She is voiding after taking Lasix She has oral phar. with dental decay and solid left mandibular lesion 1-2 cm fixed and non tender She is alert and orientated She is on day 3 of IV antibiotics States that she has had a good appetite States that she has been voiding well States that she has mild dizziness Discussed that her constipation is improving Discussed her dehydration has resolved Discussed that her chest x-ray showed minimal fluid and vasc. on the left Discussed her labs with HGN 7.7 and electrolytes normalized with her CRP 11 Discussed transfusion of 2 units prbcs for anemia secondary to fatigue, dizziness, and shortness of breath Discussed that her lung cancer is a terminal diagnose and with her bone pain increasing we will increase that fentanyl patch as well Discussed hypoxia and recommend continuing O2 for comfort Discussed consult with home health care and hospice Discussed discharging tomorrow if stable 04/11/20 She is afebrile Her vital signs are stable with heart rate in the 60s She has mouth sores that are noted from bite avendaño on front lower lip She is wearing O2 with nasal cannulas at 3L Her left side lungs are clear and she has decreased sounds on the right side but it has some better air movement Her thyroid has mild deviation Her bowel movements are now regular and soft Her skin is cool and has good turgor She is alert and orientated x4 States that she feel less tired today She has mild anxiety but is doing well and is cheerful States that she has had a good appetite and has been eating well States that she has been voiding well and having bowel movements daily States that she has mild shortness of breath and that breathing is a little work States that she has a slight cough but that isn't something new for her and has had it for years Denies any chest pains Discussed her HGN 11 now after transfusion yesterday Discussed continuing current medications and treatments Discussed labs and she has an unchanged CBC and CRP, although they are not decr easing we will rechecking them tomorrow morning Discussed home health care and hospice consults for tomorrow morning Discussed discharge plans and reviewed with patient 04/12/2020 She is afebrile Her vital signs are stable She is wearing O2 with nasal cannulas at 3L Her left side lungs are clear and she has diminished breath sounds on the right side She has slight edema all over her body She has a 2x1 decubitus coccyx ulcer She is alert and orientated States that she is doing pretty well States that she is comfortable She is feeling fatigued and has weakness States that she is unable to get out of bed States that she has had a good appetite and has been eating well States that she has been voiding well and having bowel movements daily Discussed continuing all medications and treatments Discussed rechecking labs Discussed hospice consult Discussed possible discharge to home tomorrow if she is stable Functional Status: Reports: Pain Controlled - Review of Systems General: Reports: Weakness, Fatigue, Appetite (good appetite) HEENT: Reports: No Symptoms Pulmonary: Reports: Shortness of Breath, Cough Cardiovascular: Reports: No Symptoms Gastrointestinal: Reports: No Symptoms Genitourinary: Reports: No Symptoms Musculoskeletal: Reports: No Symptoms Skin: Reports: Other (nodules in skin, radiation markings along the spine, and 2x1 decubitus coccyx ulcer) Neurological: Reports: Weakness Psychiatric: Reports: Anxiety (mild) - Patient Data Vitals - Most Recent: Last Vital Signs Temp 97.7 F 04/12/20 07:59 Pulse 120 H 04/12/20 07:59 Resp 24 H 04/12/20 07:59 BP 91/57 L 04/12/20 07:59 Pulse Ox 92 L 04/12/20 07:59 Weight - Most Recent: 43.5 kg I&O - Last 24 Hours: Intake & Output 04/11/20 04/12/20 04/12/20 22:59 06:59 14:59 Intake Total 1240 600 120 Output Total 1100 1100 Balance 140 -500 120 Brendon Results Last 24 Hours: Microbiology 04/07/20 17:55 Aerobic Blood Culture - Preliminary Blood - Venous - Lab Draw NO GROWTH AFTER 4 DAYS Anaerobic Blood Culture - Preliminary NO GROWTH AFTER 4 DAYS 04/07/20 17:40 Aerobic Blood Culture - Preliminary Blood - Venous NO GROWTH AFTER 4 DAYS Anaerobic Blood Culture - Preliminary NO GROWTH AFTER 4 DAYS Med Orders - Current: Current Medications Albuterol/Ipratropium (Duoneb 3.0-0.5 Mg/3 Ml) 3 ml NEB Q4HRRT PRN PRN Reason: Shortness of Breath Last Admin: 04/12/20 06:27 Dose: 3 ml Documented by: Amoxicillin/Clavulanate Potassium (Augmentin 875 Mg/125 Mg) 1 tab PO Q12HR [facility] Last Admin: 04/12/20 08:49 Dose: 1 tab Documented by: Clonidine HCl (Catapres) 0.1 mg PO BEDTIME [facility] Last Admin: 04/11/20 21:13 Dose: 0.1 mg Documented by: Dexamethasone (Dexamethasone) 2 mg PO DAILY [facility] Last Admin: 04/12/20 08:48 Dose: 2 mg Documented by: Diphenhydr/Magaldrate/Simeth/Lidoca (First-Mouthwash Blm Susp) 30 ml PO TIDAC [facility] Last Admin: 04/12/20 07:19 Dose: 30 ml Documented by: Duloxetine HCl (Cymbalta) 60 mg PO DAILY [facility] Last Admin: 04/12/20 08:47 Dose: 60 mg Documented by: Duloxetine HCl (Cymbalta) 30 mg PO BEDTIME [facility] Last Admin: 04/11/20 21:13 Dose: 30 mg Documented by: Enoxaparin Sodium (Lovenox) 40 mg SUBCUT DAILY [facility] Fentanyl (Duragesic) 100 mcg TOP Q72H [facility] Last Admin: 04/11/20 07:54 Dose: Not Given Documented by: Fentanyl (Duragesic) 25 mcg TRDERM Q72H [facility] Last Admin: 04/10/20 14:00 Dose: 25 mcg Documented by: Ibuprofen (Motrin) 600 mg PO Q6H PRN PRN Reason: Pain Last Admin: 04/11/20 14:44 Dose: 600 mg Documented by: Lactulose (Cephulac) 20 gm PO DAILY [facility] Last Admin: 04/12/20 10:43 Dose: Not Given Documented by: Levetiracetam (Keppra) 1,000 mg PO Q8H [facility] Last Admin: 04/12/20 06:00 Dose: 1,000 mg Documented by: Melatonin (Melatonin) 21 mg PO BEDTIME [facility] Last Admin: 04/11/20 21:12 Dose: 21 mg Documented by: Metoclopramide HCl (Reglan) 10 mg PO DAILY [facility] Last Admin: 04/12/20 08:48 Dose: 10 mg Documented by: Miscellaneous Information (Remove Patch) 1 ea TRDERM Q72H [facility] Oxycodone HCl (Oxycontin) 20 mg PO BID [facility] Last Admin: 04/12/20 08:49 Dose: 20 mg Documented by: Senna/Docusate Sodium (Senna Plus) 2 tab PO DAILY@21 [facility] Last Admin: 04/11/20 21:12 Dose: 2 tab Documented by: Sodium Chloride (Saline Flush) 10 ml FLUSH ASDIRECTED PRN PRN Reason: Keep Vein Open Last Admin: 04/07/20 15:30 Dose: 10 ml Documented by: Trazodone HCl (Trazodone) 50 mg PO BEDTIME PRN PRN Reason: Sleep Last Admin: 04/11/20 21:20 Dose: 50 mg Documented by: Discontinued Medications Albuterol/Ipratropium (Duoneb 3.0-0.5 Mg/3 Ml) 3 ml NEB ONETIME ONE Stop: 04/07/20 14:47 Last Admin: 04/07/20 15:00 Dose: 3 ml Documented by: Albuterol/Ipratropium (Duoneb 3.0-0.5 Mg/3 Ml) 3 ml NEB QID PRN PRN Reason: Shortness of Breath Last Admin: 04/09/20 16:28 Dose: 3 ml Documented by: Clonidine HCl (Catapres) 0.1 mg PO DAILY [facility] Clonidine HCl (Catapres) 0.1 mg PO ONETIME ONE Stop: 04/07/20 22:01 Last Admin: 04/07/20 22:08 Dose: 0.1 mg Documented by: Duloxetine HCl (Cymbalta) 90 mg PO DAILY [facility] Duloxetine HCl (Cymbalta) 30 mg PO ONETIME ONE Stop: 04/07/20 22:01 Last Admin: 04/07/20 22:04 Dose: 30 mg Documented by: Enoxaparin Sodium (Lovenox) 40 mg SUBCUT DAILY [facility] Last Admin: 04/10/20 08:49 Dose: 40 mg Documented by: Fentanyl (Duragesic) 100 mcg TOP Q72H [facility] Last Admin: 04/08/20 01:31 Dose: Not Given Documented by: Furosemide (Lasix) 20 mg IVPUSH ONETIME ONE Stop: 04/10/20 10:25 Last Admin: 04/10/20 16:03 Dose: 20 mg Documented by: Hydromorphone HCl (Dilaudid) 0.5 mg IVPUSH ONETIME ONE Stop: 04/07/20 14:49 Last Admin: 04/07/20 15:29 Dose: 0.5 mg Documented by: Sodium Chloride (Normal Saline) 45 mls @ 40 mls/hr IV ASDIRECTED [facility] Last Admin: 04/07/20 16:36 Dose: 40 mls/hr Documented by: Vancomycin HCl 1 gm/ Sodium (Chloride) 250 mls @ 250 mls/hr IV ONETIME ONE Stop: 04/07/20 18:20 Last Admin: 04/07/20 19:48 Dose: 250 mls/hr Documented by: Piperacillin Sod/Tazobactam (Sod 4.5 gm/ Sodium Chloride) 100 mls @ 25 mls/hr IV Q8H [facility] Last Admin: 04/10/20 00:58 Dose: 25 mls/hr Documented by: Ceftriaxone Sodium 1 gm/ (Sodium Chloride) 100 mls @ 200 mls/hr IV ONETIME ONE Stop: 04/07/20 17:52 Last Admin: 04/07/20 17:58 Dose: 200 mls/hr Documented by: Dextrose/Lactated Ringer's (Dextrose 5%-Lactated Ringers) 1,000 mls @ 125 mls/hr IV ASDIRECTED [facility] Last Admin: 04/08/20 16:14 Dose: 125 mls/hr Documented by: Vancomycin HCl 0.75 gm/ Sodium (Chloride) 250 mls @ 250 mls/hr IV Q24H [facility] Last Admin: 04/09/20 18:30 Dose: 250 mls/hr Documented by: Lactated Ringer's (Ringers, Lactated) 1,000 mls @ 50 mls/hr IV ASDIRECTED [facility] Vancomycin HCl 0.75 gm/ Sodium (Chloride) 250 mls @ 250 mls/hr IV Q12H [facility] Vancomycin HCl 0.75 gm/ Sodium (Chloride) 250 mls @ 250 mls/hr IV Q12H [facility] Last Admin: 04/10/20 06:46 Dose: 250 mls/hr Documented by: Sodium Chloride (Normal Saline) 250 mls @ 10 mls/hr IV ASDIRECTED [facility] Last Admin: 04/10/20 16:40 Dose: 10 mls/hr Documented by: Iopamidol (Isovue-370 (76%)) 100 ml IVPUSH ONETIME ONE Stop: 04/07/20 16:25 Last Admin: 04/07/20 16:36 Dose: 100 ml Documented by: Lactulose (Cephulac) 20 gm PO BID [facility] Last Admin: 04/10/20 08:43 Dose: Not Given Documented by: Melatonin (Melatonin) 21 mg PO ONETIME ONE Stop: 04/07/20 22:01 Last Admin: 04/07/20 22:09 Dose: 21 mg Documented by: Methylprednisolone Sodium Succinate (Solu-Medrol) 125 mg IVPUSH ONETIME ONE Stop: 04/07/20 14:47 Last Admin: 04/07/20 15:28 Dose: 125 mg Documented by: Metoclopramide HCl (Reglan) 10 mg PO QID [facility] Last Admin: 04/10/20 08:48 Dose: 10 mg Documented by: Potassium Chloride (Klor-Con M20) 20 meq PO BID [facility] Stop: 04/09/20 09:01 Last Admin: 04/09/20 09:00 Dose: 20 meq Documented by: Potassium Chloride (Klor-Con M20) 20 meq PO BID [facility] Last Admin: 04/11/20 10:25 Dose: Not Given Documented by: Senna/Docusate Sodium (Senna Plus) 2 tab PO BID [facility] Last Admin: 04/10/20 08:44 Dose: 2 tab Documented by: Sodium Chloride (Saline Flush) 10 ml FLUSH ONETIME PRN PRN Reason: Keep Vein Open Last Admin: 04/07/20 16:36 Dose: 10 ml Documented by: Trazodone HCl (Trazodone) 50 mg PO ONETIME PRN PRN Reason: Sleep Stop: 04/09/20 23:59 Last Admin: 04/09/20 21:39 Dose: 50 mg Documented by: Vancomycin HCl (Pharmacy To Dose - Vancomycin) 1 dose .XX ASDIRECTED PRN PRN Reason: RX TO DOSE VANCO - Exam Quality Assessment: Supplemental Oxygen (3L) General: Alert, Oriented HEENT: Pupils Equal, Pupils Reactive, EOMI, Mucous Membr. Moist/[place] Neck: Supple Lungs: Decreased Breath Sounds Cardiovascular: Regular Rate, Regular Rhythm GI/Abdominal Exam: Normal Bowel Sounds, Soft, Non-Tender, No Organomegaly, No Distention, No Abnormal Bruit, No Mass, Pelvis Stable Back Exam: Normal Inspection, Full Range of Motion Extremities: Normal Inspection, Normal Range of Motion, Non-Tender, No Pedal Edema, Normal Capillary Refill Skin: Dry, Intact, Cool, Other (nodules in skin, radiation markings along the spine, and 2x1 decubitus coccyx ulcer) Wound/Incisions: Decubitis (2x1 decubitus coccyx ulcer) Neurological: No New Focal Deficit Psy/Mental Status: Alert, Normal Affect, Normal Mood, Anxious (mild) Sepsis Event Note - Evaluation Sepsis Screening Result: Sepsis Risk - Focused Exam Vital Signs: Vital Signs Temp Pulse Resp BP Pulse Ox Pulse Ox 04/12/20 07:59 97.7 F 120 H 24 H 91/57 L 92 L 04/12/20 06:29 92 L 04/12/20 05:55 98.2 F 109 H 16 98/64 91 L 04/12/20 00:18 97.5 F 98 16 102/69 93 L Date Exam was Performed: 04/13/20 Time Exam was Performed: 11:52 - Problem List & Annotations (1) Anemia SNOMED Code(s): 473609508 Code(s): D64.9 - ANEMIA, UNSPECIFIED Status: Acute Priority: Medium Current Visit: Yes Onset Date: ~04/10/20 Qualifiers: Other causes of anemia: chronic disease, neoplastic Annotation/Comment:: transused 2 units prbcs with lasix . (2) Constipation SNOMED Code(s): 42506845 Code(s): K59.00 - CONSTIPATION, UNSPECIFIED Status: Acute Priority: Medium Current Visit: Yes Qualifiers: Constipation type: drug induced constipation Qualified Code(s): K59.03 - Drug induced constipation Annotation/Comment:: lactulose and reglana nd sennakot started . good response. (3) Constipation due to opioid therapy SNOMED Code(s): 632919976344410 Code(s): K59.03 - DRUG INDUCED CONSTIPATION; T40.2X5A - ADVERSE EFFECT OF OTHER OPIOIDS, INITIAL ENCOUNTER Status: Acute Priority: Medium Current Visit: Yes Onset Date: ~04/07/20 Annotation/Comment:: dc home on bowel regiman (4) Dehydration SNOMED Code(s): 45677677 Code(s): E86.0 - DEHYDRATION Status: Acute Priority: Low Current Visit: Yes Onset Date: ~04/07/20 Annotation/Comment:: euvolemic (5) Hypokalemia due to inadequate potassium intake SNOMED Code(s): 03042855 Code(s): E87.6 - HYPOKALEMIA Status: Acute Priority: Low Current Visit: Yes Onset Date: ~04/07/20 Annotation/Comment:: stable / cont oral k (6) Hyponatremia SNOMED Code(s): 71467519 Code(s): E87.1 - HYPO-OSMOLALITY AND HYPONATREMIA Status: Acute Priority: Medium Current Visit: Yes Onset Date: ~04/07/20 Annotation/Comment:: stable (7) Hypoxia SNOMED Code(s): 598120393 Code(s): R09.02 - HYPOXEMIA Status: Acute Priority: High Current Visit: Yes Onset Date: ~04/07/20 Annotation/Comment:: sats 90 on 2 l n.c. 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 discussed progression of tumor and will defer to oncology who suggests stopping immune mod med. for lack of effacacy. discussed hospice and c consult with patient and home going issues - Problem List Review Problem List Initiated/Reviewed/Updated: Yes - Assessment Assessment:: She is afebrile Her vital signs are stable She is wearing O2 with nasal cannulas at 3L Her left side lungs are clear and she has diminished breath sounds on the right side She has slight edema all over her body She has a 2x1 decubitus coccyx ulcer She is alert and orientated States that she is doing pretty well States that she is comfortable She is feeling fatigued and has weakness States that she is unable to get out of bed States that she has had a good appetite and has been eating well States that she has been voiding well and having bowel movements daily Discussed continuing all medications and treatments Discussed rechecking labs Discussed hospice consult Discussed possible discharge to home tomorrow if she is stable - Plan Plan:: Admitted with weakness/ hypoxia/ lung cancer/ pneumonia/ dehydration/ constipation/ hyponatremia/ hypokalemia/ anemia 64 year old female admitted from the ER that presented with shortness of breath and has 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 Grijalva. 04/08/20 She is afebrile Her vital signs are stable Her lungs have decreased She is wearing O2 with nasal cannulas at 3L Her abdomen is nontender with minimal distention and bowel sounds were heard She is alert and orientated States that she feels better Her dehydration has improved with IV antibiotics of Rocephin and Zithromax States that she has chronic constipation problems that she deals with Discussed her code status and she wishes to be no CPR and no intubation Discussed that her labs are still pending Discussed rechecking her chest x-ray for possible pneumonia Discussed starting nebulizer treatments for COPD and sever lung disease 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 Discussed pain control Discussed starting lactulose and Senokot for chronic constipation Discussed monitoring her nutrition and a dietary consult Discussed calling her oncologist and discussing treatment options in light of progression Discussed possible transfer to [place] for further palliative treatments depending on what oncology says Discussed hospice care briefly and explained what they could and would help with and decided to defer until we see what oncology says Prognosis appears poor and more short term and discussed with patient and and they are appreciative of concerns 04/09/20 She is afebrile Her vital signs are stable with a respiratory rate in the 20s with talking and mild tachycardia of 110 She is wearing O2 with nasal cannulas at 2L and her stats are 90-94 while in bed She has lung crackles in the left upper lobe and decreased breath sounds in the entire right lung She has good extremity perfusion Her abdomen is benign She is not receiving any benefit form palliative modulator and is not candidate for aggressive chemo or for more radiation She is alert and orientated States that she has had a good appetite States that she has been voiding well Her chest x-ray is pending Reviewed and discussed CT scan with oncology and with and patient Discussed home health care and hospice and they would like to talk with both Discussed lab improvements and discharge plans including home O2 and nebulizer treatments for comfort and ease of breathing, she is currently doing treatments every 4-6 hours Discussed switching to oral antibiotic and will do so in am if continuing to do well 04/10/20 She is afebrile Her vital signs are stable with her blood pressure low to normal range 3400/5400 and breathing still dyspneic with stats in the 90% at rest and she destats with few steps going to the bathroom No sever distress but mild tachypnea with talking Her lung sounds are clear on the left and she has little air movement that is heard on the right Her abdomen is benign with active bowel sounds and she had 6 bowel movements since starting medication for constipation yesterday She is voiding after taking Lasix She has oral phar. with dental decay and solid left mandibular lesion 1-2 cm fixed and non tender She is alert and orientated She is on day 3 of IV antibiotics States that she has had a good appetite States that she has been voiding well States that she has mild dizziness Discussed that her constipation is improving Discussed her dehydration has resolved Discussed that her chest x-ray showed minimal fluid and vasc. on the left Discussed her labs with HGN 7.7 and electrolytes normalized with her CRP 11 Discussed transfusion of 2 units prbcs for anemia secondary to fatigue, dizziness, and shortness of breath Discussed that her lung cancer is a terminal diagnose and with her bone pain increasing we will increase that fentanyl patch as well Discussed hypoxia and recommend continuing O2 for comfort Discussed consult with home health care and hospice Discussed discharging tomorrow if stable 04/11/20 She is afebrile Her vital signs are stable with heart rate in the 60s She has mouth sores that are noted from bite avendaño on front lower lip She is wearing O2 with nasal cannulas at 3L Her left side lungs are clear and she has decreased sounds on the right side but it has some better air movement Her thyroid has mild deviation Her bowel movements are now regular and soft Her skin is cool and has good turgor She is alert and orientated x4 States that she feel less tired today She has mild anxiety but is doing well and is cheerful States that she has had a good appetite and has been eating well States that she has been voiding well and having bowel movements daily States that she has mild shortness of breath and that breathing is a little work States that she has a slight cough but that isn't something new for her and has had it for years Denies any chest pains Discussed her HGN 11 now after transfusion yesterday Discussed continuing current medications and treatments Discussed labs and she has an unchanged CBC and CRP, although they are not decreasing we will rechecking them tomorrow morning Discussed home health care and hospice consults for tomorrow morning Discussed discharge plans and reviewed with patient 04/12/2020 She is afebrile Her vital signs are stable She is wearing O2 with nasal cannulas at 3L Her left side lungs are clear and she has diminished breath sounds on the right side She has slight edema all over her body She has a 2x1 decubitus coccyx ulcer She is alert and orientated States that she is doing pretty well States that she is comfortable She is feeling fatigued and has weakness States that she is unable to get out of bed States that she has had a good appetite and has been eating well States that she has been voiding well and having bowel movements daily Discussed continuing all medications and treatments Discussed rechecking labs Discussed hospice consult Discussed possible discharge to home tomorrow if she is stable 04/13/20 dc home today . primary care to be [facility] hosp[facility] following .
--- NOTE | 2020-04-13 11:57 | PCM.DCSUM1 ---
Discharge Summary - Hospital Course Free Text/Narrative:: Admitted with weakness/ hypoxia/ lung cancer/ pneumonia/ dehydration/ constipation/ hyponatremia/ hypokalemia/ anemia 64 year old female admitted from the ER that presented with shortness of breath and has 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 Grijalva. 04/08/20 She is afebrile Her vital signs are stable Her lungs have decreased She is wearing O2 with nasal cannulas at 3L Her abdomen is nontender with minimal distention and bowel sounds were heard She is alert and orientated States that she feels better Her dehydration has improved with IV antibiotics of Rocephin and Zithromax States that she has chronic constipation problems that she deals with Discussed her code status and she wishes to be no CPR and no intubation Discussed that her labs are still pending Discussed rechecking her chest x-ray for possible pneumonia Discussed starting nebulizer treatments for COPD and sever lung disease 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 Discussed pain control Discussed starting lactulose and Senokot for chronic constipation Discussed monitoring her nutrition and a dietary consult Discussed calling her oncologist and discussing treatment options in light of progression Discussed possible transfer to [place] for further palliative treatments depending on what oncology says Discussed hospice care briefly and explained what they could and would help with and decided to defer until we see what oncology says Prognosis appears poor and more short term and discussed with patient and and they are appreciative of concerns 04/09/20 She is afebrile Her vital signs are stable with a respiratory rate in the 20s with talking and mild tachycardia of 110 She is wearing O2 with nasal cannulas at 2L and her stats are 90-94 while in bed She has lung crackles in the left upper lobe and decreased breath sounds in the entire right lung She has good extremity perfusion Her abdomen is benign She is not receiving any benefit form palliative modulator and is not candidate for aggressive chemo or for more radiation She is alert and orientated States that she has had a good appetite States that she has been voiding well Her chest x-ray is pending Reviewed and discussed CT scan with oncology and with and patient Discussed home health care and hospice and they would like to talk with both Discussed lab improvements and discharge plans including home O2 and nebulizer treatments for comfort and ease of breathing, she is currently doing treatments every 4-6 hours Discussed switching to oral antibiotic and will do so in am if continuing to do well 04/10/20 She is afebrile Her vital signs are stable with her blood pressure low to normal range 3400/5400 and breathing still dyspneic with stats in the 90% at rest and she destats with few steps going to the bathroom No sever distress but mild tachypnea with talking Her lung sounds are clear on the left and she has little air movement that is heard on the right Her abdomen is benign with active bowel sounds and she had 6 bowel movements since starting medication for constipation yesterday She is voiding after taking Lasix She has oral phar. with dental decay and solid left mandibular lesion 1-2 cm fixed and non tender She is alert and orientated She is on day 3 of IV antibiotics States that she has had a good appetite States that she has been voiding well States that she has mild dizziness Discussed that her constipation is improving Discussed her dehydration has resolved Discussed that her chest x-ray showed minimal fluid and vasc. on the left Discussed her labs with HGN 7.7 and electrolytes normalized with her CRP 11 Discussed transfusion of 2 units prbcs for anemia secondary to fatigue, dizziness, and shortness of breath Discussed that her lung cancer is a terminal diagnose and with her bone pain increasing we will increase that fentanyl patch as well Discussed hypoxia and recommend continuing O2 for comfort Discussed consult with home health care and hospice Discussed discharging tomorrow if stable 04/11/20 She is afebrile Her vital signs are stable with heart rate in the 60s She has mouth sores that are noted from bite avendaño on front lower lip She is wearing O2 with nasal cannulas at 3L Her left side lungs are clear and she has decreased sounds on the right side but it has some better air movement Her thyroid has mild deviation Her bowel movements are now regular and soft Her skin is cool and has good turgor She is alert and orientated x4 States that she feel less tired today She has mild anxiety but is doing well and is cheerful States that she has had a good appetite and has been eating well States that she has been voiding well and having bowel movements daily States that she has mild shortness of breath and that breathing is a little work States that she has a slight cough but that isn't something new for her and has had it for years Denies any chest pains Discussed her HGN 11 now after transfusion yesterday Discussed continuing current medications and treatments Discussed labs and she has an unchanged CBC and CRP, although they are not decreasing we will rechecking them tomorrow morning Discussed home health care and hospice consults for tomorrow morning Discussed discharge plans and reviewed with patient 04/12/2020 She is afebrile Her vital signs are stable She is wearing O2 with nasal cannulas at 3L Her left side lungs are clear and she has diminished breath sounds on the right side She has slight edema all over her body She has a 2x1 decubitus coccyx ulcer She is alert and orientated States that she is doing pretty well States that she is comfortable She is feeling fatigued and has weakness States that she is unable to get out of bed States that she has had a good appetite and has been eating well States that she has been voiding well and having bowel movements daily Discussed continuing all medications and treatments Discussed rechecking labs Discussed hospice consult Discussed possible discharge to home tomorrow if she is stable 04/13/2020 She is afebrile Her vital signs are stable She is wearing O2 with nasal cannulas at 3L Her left side lungs are clear and she has diminished breath sounds on the right side She has a 2x1 decubitus coccyx ulcer She is a x2 assist She is wearing her glasses She is alert and orientated States that she slept well last night States that she is feeling weak and fatigued States that her breathing feels shallow and like she can't catch her breath States that her appetite is off this morning and that she didn't eat very well States that her backside is feeling sore Discussed getting a shower to see if the warm soapy water helps with her sore on her back side Discussed turning up her O2 to help with her shortness of breath Discussed discharging to home today with having hospice help them at home HPI Initial Comments: Admitted with weakness/ hypoxia/ lung cancer/ pneumonia/ dehydration/ constipation/ hyponatremia/ hypokalemia/ anemia 64 year old female admitted from the ER that presented with shortness of breath and has 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 Grijalva. 04/08/20 She is afebrile Her vital signs are stable Her lungs have decreased She is wearing O2 with nasal cannulas at 3L Her abdomen is nontender with minimal distention and bowel sounds were heard She is alert and orientated States that she feels better Her dehydration has improved with IV antibiotics of Rocephin and Zithromax States that she has chronic constipation problems that she deals with Discussed her code status and she wishes to be no CPR and no intubation Discussed that her labs are still pending Discussed rechecking her chest x-ray for possible pneumonia Discussed starting nebulizer treatments for COPD and sever lung disease 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 Discussed pain control Discussed starting lactulose and Senokot for chronic constipation Discussed monitoring her nutrition and a dietary consult Discussed calling her oncologist and discussing treatment options in light of progression Discussed possible transfer to [facility] for further palliative treatments depending on what oncology says Discussed hospice care briefly and explained what they could and would help with and decided to defer until we see what oncology says Prognosis appears poor and more short term and discussed with patient and and they are appreciative of concerns 04/09/20 She is afebrile Her vital signs are stable with a respiratory rate in the 20s with talking and mild tachycardia of 110 She is wearing O2 with nasal cannulas at 2L and her stats are 90-94 while in bed She has lung crackles in the left upper lobe and decreased breath sounds in the entire right lung She has good extremity perfusion Her abdomen is benign She is not receiving any benefit form palliative modulator and is not candidate for aggressive chemo or for more radiation She is alert and orientated States that she has had a good appetite States that she has been voiding well Her chest x-ray is pending Reviewed and discussed CT scan with oncology and with and patient Discussed home health care and hospice and they would like to talk with both Discussed lab improvements and discharge plans including home O2 and nebulizer treatments for comfort and ease of breathing, she is currently doing treatments every 4-6 hours Discussed switching to oral antibiotic and will do so in am if continuing to do well 04/10/20 She is afebrile Her vital signs are stable with her blood pressure low to normal range 3400/5400 and breathing still dyspneic with stats in the 90% at rest and she destats with few steps going to the bathroom No sever distress but mild tachypnea with talking Her lung sounds are clear on the left and she has little air movement that is heard on the right Her abdomen is benign with active bowel sounds and she had 6 bowel movements since starting medication for constipation yesterday She is voiding after taking Lasix She has oral phar. with dental decay and solid left mandibular lesion 1-2 cm fixed and non tender She is alert and orientated She is on day 3 of IV antibiotics States that she has had a good appetite States that she has been voiding well States that she has mild dizziness Discussed that her constipation is improving Discussed her dehydration has resolved Discussed that her chest x-ray showed minimal fluid and vasc. on the left Discussed her labs with HGN 7.7 and electrolytes normalized with her CRP 11 Discussed transfusion of 2 units prbcs for anemia secondary to fatigue, dizziness, and shortness of breath Discussed that her lung cancer is a terminal diagnose and with her bone pain increasing we will increase that fentanyl patch as well Discussed hypoxia and recommend continuing O2 for comfort Discussed consult with home health care and hospice Discussed discharging tomorrow if stable 04/11/20 She is afebrile Her vital signs are stable with heart rate in the 60s She has mouth sores that are noted from bite avendaño on front lower lip She is wearing O2 with nasal cannulas at 3L Her left side lungs are clear and she has decreased sounds on the right side but it has some better air movement Her thyroid has mild deviation Her bowel movements are now regular and soft Her skin is cool and has good turgor She is alert and orientated x4 States that she feel less tired today She has mild anxiety but is doing well and is cheerful States that she has had a good appetite and has been eating well States that she has been voiding well and having bowel movements daily States that she has mild shortness of breath and that breathing is a little work States that she has a slight cough but that isn't something new for her and has had it for years Denies any chest pains Discussed her HGN 11 now after transfusion yesterday Discussed continuing current medications and treatments Discussed labs and she has an unchanged CBC and CRP, although they are not decre asing we will rechecking them tomorrow morning Discussed home health care and hospice consults for tomorrow morning Discussed discharge plans and reviewed with patient 04/12/2020 She is afebrile Her vital signs are stable She is wearing O2 with nasal cannulas at 3L Her left side lungs are clear and she has diminished breath sounds on the right side She has slight edema all over her body She has a 2x1 decubitus coccyx ulcer She is alert and orientated States that she is doing pretty well States that she is comfortable She is feeling fatigued and has weakness States that she is unable to get out of bed States that she has had a good appetite and has been eating well States that she has been voiding well and having bowel movements daily Discussed continuing all medications and treatments Discussed rechecking labs Discussed hospice consult Discussed possible discharge to home tomorrow if she is stable 04/13/2020 She is afebrile Her vital signs are stable She is wearing O2 with nasal cannulas at 3L Her left side lungs are clear and she has diminished breath sounds on the right side She has a 2x1 decubitus coccyx ulcer She is a x2 assist She is wearing her glasses She is alert and orientated States that she slept well last night States that she is feeling weak and fatigued States that her breathing feels shallow and like she can't catch her breath States that her appetite is off this morning and that she didn't eat very well States that her backside is feeling sore Discussed getting a shower to see if the warm soapy water helps with her sore on her back side Discussed turning up her O2 to help with her shortness of breath Discussed discharging to home today with having hospice help them at home - Discharge Data Discharge Date: 04/13/20 Discharge Disposition: DC/Tfer to Hospice - Home 50 Condition: Fair - Referral to Home Health Primary Care Physician: Mike Grijalva MD - Discharge Diagnosis/Problem(s) (1) Anemia SNOMED Code(s): 805573387 ICD Code: D64.9 - ANEMIA, UNSPECIFIED Status: Acute Priority: Medium Current Visit: Yes Onset Date: ~04/10/20 Problem Details: transused 2 units prbcs with lasix . Qualifiers: Other causes of anemia: chronic disease, neoplastic (2) Constipation due to opioid therapy SNOMED Code(s): 344388056698919 ICD Code: K59.03 - DRUG INDUCED CONSTIPATION; T40.2X5A - ADVERSE EFFECT OF OTHER OPIOIDS, INITIAL ENCOUNTER Status: Acute Priority: Medium Current Visit: Yes Onset Date: ~04/07/20 Problem Details: dc home on bowel regiman (3) Dehydration SNOMED Code(s): 94214222 ICD Code: E86.0 - DEHYDRATION Status: Acute Priority: Low Current Visit: Yes Onset Date: ~04/07/20 Problem Details: euvolemic (4) Hypokalemia due to inadequate potassium intake SNOMED Code(s): 79029554 ICD Code: E87.6 - HYPOKALEMIA Status: Acute Priority: Low Current Visit: Yes Onset Date: ~04/07/20 Problem Details: stable / cont oral k (5) Hyponatremia SNOMED Code(s): 95687787 ICD Code: E87.1 - HYPO-OSMOLALITY AND HYPONATREMIA Status: Acute Priority: Medium Current Visit: Yes Onset Date: ~04/07/20 Problem Details: stable (6) Hypoxia SNOMED Code(s): 218279434 ICD Code: R09.02 - HYPOXEMIA Status: Acute Priority: High Current Visit: Yes Onset Date: ~04/07/20 Problem Details: sats 90 on 2 l n.c. 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 discussed progression of tumor and will defer to oncology who suggests stopping immune mod med. for lack of effacacy. discussed hospice and [facility] with patient and home going issues Qualifiers: Laterality: right Lung location: upper lobe of lung Qualified Code(s): C34.11 - Malignant neoplasm of upper lobe, right bronchus or lung - Patient Summary/Data Consults: Consultations 04/08/20 10:39 Consult to Case Management/H[employer] [CONS] Routine Consult to Occupational Therapy [OT Evaluation and Treatment] [CONS] Routine PT Evaluation and Treatment [CONS] Routine 04/12/20 10:01 Consult to Physical Therapy [PT Evaluation and Treatment] [CONS] Routine 04/12/20 13:29 Consult to Hospice [CONS] Routine - Patient Instructions Driving: Do Not Drive Showering/Bathing: May Shower Notify Provider of: Fever, Increased Pain, Swelling and Redness, Drainage, Nausea and/or Vomiting - Discharge Plan Home Medications: Home Meds DULoxetine [Cymbalta] 30 mg PO BEDTIME 04/07/20 [History] DULoxetine [Cymbalta] 60 mg PO DAILY 04/07/20 [History] Melatonin 20 mg PO BEDTIME 04/07/20 [History] Metoclopramide HCl [Reglan] 10 mg PO QID 04/07/20 [History] cloNIDine [Catapres] 0.1 mg PO DAILY 04/07/20 [History] dexAMETHasone [Dexamethasone] 2 mg PO DAILY 04/07/20 [History] fentaNYL [Duragesic] 100 mcg TD Q48H 04/07/20 [History] levETIRAcetam [Keppra] 1,000 mg PO Q8H 04/07/20 [History] oxyCODONE ER [OxyCONTIN] 20 mg PO BID 04/07/20 [History] Oxygen Therapy Mode: Nasal Cannula Patient Handouts: Sepsis, Diagnosis, Adult Forms: ED Department Discharge Referrals: Carla Lopez MD [Ordering Only Provider] - Mike Grijalva MD [Primary Care Provider] - - Discharge Summary/Plan Comment DC Time >30 min.: Yes - General Info Date of Service: 04/13/20 Admission Dx/Problem (Free Text: Admitted with weakness/ hypoxia/ lung cancer/ pneumonia/ dehydration/ constipation/ hyponatremia/ hypokalemia/ anemia 64 year old female admitted from the ER that presented with shortness of breath and has 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 Grijalva. 04/08/20 She is afebrile Her vital signs are stable Her lungs have decreased She is wearing O2 with nasal cannulas at 3L Her abdomen is nontender with minimal distention and bowel sounds were heard She is alert and orientated States that she feels better Her dehydration has improved with IV antibiotics of Rocephin and Zithromax States that she has chronic constipation problems that she deals with Discussed her code status and she wishes to be no CPR and no intubation Discussed that her labs are still pending Discussed rechecking her chest x-ray for possible pneumonia Discussed starting nebulizer treatments for COPD and sever lung disease 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 Discussed pain control Discussed starting lactulose and Senokot for chronic constipation Discussed monitoring her nutrition and a dietary consult Discussed calling her oncologist and discussing treatment options in light of progression Discussed possible transfer to [place] for further palliative treatments depending on what oncology says Discussed hospice care briefly and explained what they could and would help with and decided to defer until we see what oncology says Prognosis appears poor and more short term and discussed with patient and and they are appreciative of concerns 04/09/20 She is afebrile Her vital signs are stable with a respiratory rate in the 20s with talking and mild tachycardia of 110 She is wearing O2 with nasal cannulas at 2L and her stats are 90-94 while in bed She has lung crackles in the left upper lobe and decreased breath sounds in the entire right lung She has good extremity perfusion Her abdomen is benign She is not receiving any benefit form palliative modulator and is not candidate for aggressive chemo or for more radiation She is alert and orientated States that she has had a good appetite States that she has been voiding well Her chest x-ray is pending Reviewed and discussed CT scan with oncology and with and patient Discussed home health care and hospice and they would like to talk with both Discussed lab improvements and discharge plans including home O2 and nebulizer treatments for comfort and ease of breathing, she is currently doing treatments every 4-6 hours Discussed switching to oral antibiotic and will do so in am if continuing to do well 04/10/20 She is afebrile Her vital signs are stable with her blood pressure low to normal range 3400/5400 and breathing still dyspneic with stats in the 90% at rest and she destats with few steps going to the bathroom No sever distress but mild tachypnea with talking Her lung sounds are clear on the left and she has little air movement that is heard on the right Her abdomen is benign with active bowel sounds and she had 6 bowel movements since starting medication for constipation yesterday She is voiding after taking Lasix She has oral phar. with dental decay and solid left mandibular lesion 1-2 cm fixed and non tender She is alert and orientated She is on day 3 of IV antibiotics States that she has had a good appetite States that she has been voiding well States that she has mild dizziness Discussed that her constipation is improving Discussed her dehydration has resolved Discussed that her chest x-ray showed minimal fluid and vasc. on the left Discussed her labs with HGN 7.7 and electrolytes normalized with her CRP 11 Discussed transfusion of 2 units prbcs for anemia secondary to fatigue, dizziness, and shortness of breath Discussed that her lung cancer is a terminal diagnose and with her bone pain increasing we will increase that fentanyl patch as well Discussed hypoxia and recommend continuing O2 for comfort Discussed consult with home health care and hospice Discussed discharging tomorrow if stable 04/11/20 She is afebrile Her vital signs are stable with heart rate in the 60s She has mouth sores that are noted from bite avendaño on front lower lip She is wearing O2 with nasal cannulas at 3L Her left side lungs are clear and she has decreased sounds on the right side but it has some better air movement Her thyroid has mild deviation Her bowel movements are now regular and soft Her skin is cool and has good turgor She is alert and orientated x4 States that she feel less tired today She has mild anxiety but is doing well and is cheerful States that she has had a good appetite and has been eating well States that she has been voiding well and having bowel movements daily States that she has mild shortness of breath and that breathing is a little work States that she has a slight cough but that isn't something new for her and has had it for years Denies any chest pains Discussed her HGN 11 now after transfusion yesterday Discussed continuing current medications and treatments Discussed labs and she has an unchanged CBC and CRP, although they are not decreasing we will rechecking them tomorrow morning Discussed home health care and hospice consults for tomorrow morning Discussed discharge plans and reviewed with patient 04/12/2020 She is afebrile Her vital signs are stable She is wearing O2 with nasal cannulas at 3L Her left side lungs are clear and she has diminished breath sounds on the right side She has slight edema all over her body She has a 2x1 decubitus coccyx ulcer She is alert and orientated States that she is doing pretty well States that she is comfortable She is feeling fatigued and has weakness States that she is unable to get out of bed States that she has had a good appetite and has been eating well States that she has been voiding well and having bowel movements daily Discussed continuing all medications and treatments Discussed rechecking labs Discussed hospice consult Discussed possible discharge to home tomorrow if she is stable 04/13/2020 She is afebrile Her vital signs are stable She is wearing O2 with nasal cannulas at 3L Her left side lungs are clear and she has diminished breath sounds on the right side She has a 2x1 decubitus coccyx ulcer She is a x2 assist She is wearing her glasses She is alert and orientated States that she slept well last night States that she is feeling weak and fatigued States that her breathing feels shallow and like she can't catch her breath States that her appetite is off this morning and that she didn't eat very well States that her backside is feeling sore Discussed getting a shower to see if the warm soapy water helps with her sore on her back side Discussed turning up her O2 to help with her shortness of breath Discussed discharging to home today with having hospice help them at home Subjective Update: Admitted with weakness/ hypoxia/ lung cancer/ pneumonia/ dehydration/ constipation/ hyponatremia/ hypokalemia/ anemia 64 year old female admitted from the ER that presented with shortness of breath and has 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 Grijalva. 04/08/20 She is afebrile Her vital signs are stable Her lungs have decreased She is wearing O2 with nasal cannulas at 3L Her abdomen is nontender with minimal distention and bowel sounds were heard She is alert and orientated States that she feels better Her dehydration has improved with IV antibiotics of Rocephin and Zithromax States that she has chronic constipation problems that she deals with Discussed her code status and she wishes to be no CPR and no intubation Discussed that her labs are still pending Discussed rechecking her chest x-ray for possible pneumonia Discussed starting nebulizer treatments for COPD and sever lung disease 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 Discussed pain control Discussed starting lactulose and Senokot for chronic constipation Discussed monitoring her nutrition and a dietary consult Discussed calling her oncologist and discussing treatment options in light of progression Discussed possible transfer to [place] for further palliative treatments depending on what oncology says Discussed hospice care briefly and explained what they could and would help with and decided to defer until we see what oncology says Prognosis appears poor and more short term and discussed with patient and and they are appreciative of concerns 04/09/20 She is afebrile Her vital signs are stable with a respiratory rate in the 20s with talking and mild tachycardia of 110 She is wearing O2 with nasal cannulas at 2L and her stats are 90-94 while in bed She has lung crackles in the left upper lobe and decreased breath sounds in the entire right lung She has good extremity perfusion Her abdomen is benign She is not receiving any benefit form palliative modulator and is not candidate for aggressive chemo or for more radiation She is alert and orientated States that she has had a good appetite States that she has been voiding well Her chest x-ray is pending Reviewed and discussed CT scan with oncology and with and patient Discussed home health care and hospice and they would like to talk with both Discussed lab improvements and discharge plans including home O2 and nebulizer treatments for comfort and ease of breathing, she is currently doing treatments every 4-6 hours Discussed switching to oral antibiotic and will do so in am if continuing to do well 04/10/20 She is afebrile Her vital signs are stable with her blood pressure low to normal range 3400/5400 and breathing still dyspneic with stats in the 90% at rest and she destats with few steps going to the bathroom No sever distress but mild tachypnea with talking Her lung sounds are clear on the left and she has little air movement that is heard on the right Her abdomen is benign with active bowel sounds and she had 6 bowel movements since starting medication for constipation yesterday She is voiding after taking Lasix She has oral phar. with dental decay and solid left mandibular lesion 1-2 cm fixed and non tender She is alert and orientated She is on day 3 of IV antibiotics States that she has had a good appetite States that she has been voiding well States that she has mild dizziness Discussed that her constipation is improving Discussed her dehydration has resolved Discussed that her chest x-ray showed minimal fluid and vasc. on the left Discussed her labs with HGN 7.7 and electrolytes normalized with her CRP 11 Discussed transfusion of 2 units prbcs for anemia secondary to fatigue, dizziness, and shortness of breath Discussed that her lung cancer is a terminal diagnose and with her bone pain increasing we will increase that fentanyl patch as well Discussed hypoxia and recommend continuing O2 for comfort Discussed consult with home health care and hospice Discussed discharging tomorrow if stable 04/11/20 She is afebrile Her vital signs are stable with heart rate in the 60s She has mouth sores that are noted from bite avendaño on front lower lip She is wearing O2 with nasal cannulas at 3L Her left side lungs are clear and she has decreased sounds on the right side but it has some better air movement Her thyroid has mild deviation Her bowel movements are now regular and soft Her skin is cool and has good turgor She is alert and orientated x4 States that she feel less tired today She has mild anxiety but is doing well and is cheerful States that she has had a good appetite and has been eating well States that she has been voiding well and having bowel movements daily States that she has mild shortness of breath and that breathing is a little work States that she has a slight cough but that isn't something new for her and has had it for years Denies any chest pains Discussed her HGN 11 now after transfusion yesterday Discussed continuing current medications and treatments Discussed labs and she has an unchanged CBC and CRP, although they are not decreasing we will rechecking them tomorrow morning Discussed home health care and hospice consults for tomorrow morning Discussed discharge plans and reviewed with patient 04/12/2020 She is afebrile Her vital signs are stable She is wearing O2 with nasal cannulas at 3L Her left side lungs are clear and she has diminished breath sounds on the right side She has slight edema all over her body She has a 2x1 decubitus coccyx ulcer She is alert and orientated States that she is doing pretty well States that she is comfortable She is feeling fatigued and has weakness States that she is unable to get out of bed States that she has had a good appetite and has been eating well States that she has been voiding well and having bowel movements daily Discussed continuing all medications and treatments Discussed rechecking labs Discussed hospice consult Discussed possible discharge to home tomorrow if she is stable 04/13/2020 She is afebrile Her vital signs are stable She is wearing O2 with nasal cannulas at 3L Her left side lungs are clear and she has diminished breath sounds on the right side She has a 2x1 decubitus coccyx ulcer She is a x2 assist She is wearing her glasses She is alert and orientated States that she slept well last night States that she is feeling weak and fatigued States that her breathing feels shallow and like she can't catch her breath States that her appetite is off this morning and that she didn't eat very well States that her backside is feeling sore Discussed getting a shower to see if the warm soapy water helps with her sore on her back side Discussed turning up her O2 to help with her shortness of breath Discussed discharging to home today with having hospice help them at home Functional Status: Reports: Pain Controlled - Review of Systems General: Reports: Weakness, Fatigue HEENT: Reports: Glasses Pulmonary: Reports: Shortness of Breath Cardiovascular: Reports: No Symptoms Gastrointestinal: Reports: Decreased Appetite Genitourinary: Reports: No Symptoms Musculoskeletal: Reports: No Symptoms Skin: Reports: No Symptoms, Other (2x1 decubitus coccyx ulcer) Neurological: Reports: Weakness Psychiatric: Reports: No Symptoms - Patient Data Vitals - Most Recent: Last Vital Signs Temp 97.7 F 04/13/20 08:39 Pulse 106 H 04/13/20 08:39 Resp 18 04/13/20 08:39 BP 103/62 04/13/20 08:39 Pulse Ox 96 04/13/20 08:39 Weight - Most Recent: 39.644 kg I&O - Last 24 hours: Intake & Output 04/12/20 04/13/20 04/13/20 22:59 06:59 14:59 Intake Total 1900 1150 Output Total 1450 1200 Balance 450 -50 TJ Results - Last 24 hrs: Microbiology 04/07/20 17:55 Aerobic Blood Culture - Preliminary Blood - Venous - Lab Draw NO GROWTH AFTER 5 DAYS Anaerobic Blood Culture - Preliminary NO GROWTH AFTER 5 DAYS 04/07/20 17:40 Aerobic Blood Culture - Preliminary Blood - Venous NO GROWTH AFTER 5 DAYS Anaerobic Blood Culture - Preliminary NO GROWTH AFTER 5 DAYS Med Orders - Current: Current Medications Albuterol/Ipratropium (Duoneb 3.0-0.5 Mg/3 Ml) 3 ml NEB Q4HRRT PRN PRN Reason: Shortness of Breath Last Admin: 04/12/20 06:27 Dose: 3 ml Documented by: Amoxicillin/Clavulanate Potassium (Augmentin 875 Mg/125 Mg) 1 tab PO Q12HR [facility] Last Admin: 04/13/20 08:43 Dose: 1 tab Documented by: Clonidine HCl (Catapres) 0.1 mg PO BEDTIME [facility] Last Admin: 04/12/20 20:03 Dose: 0.1 mg Documented by: Dexamethasone (Dexamethasone) 2 mg PO DAILY [facility] Last Admin: 04/13/20 08:42 Dose: 2 mg Documented by: Dibucaine (Nupercainal 1% Oint) 0 gm TOP Q4H PRN PRN Reason: Pain Last Admin: 04/12/20 16:58 Dose: 1 gram Documented by: Diphenhydr/Magaldrate/Simeth/Lidoca (First-Mouthwash Blm Susp) 30 ml PO TIDAC [facility] Last Admin: 04/13/20 08:40 Dose: Not Given Documented by: Duloxetine HCl (Cymbalta) 60 mg PO DAILY [facility] Last Admin: 04/13/20 08:41 Dose: 60 mg Documented by: Duloxetine HCl (Cymbalta) 30 mg PO BEDTIME [facility] Last Admin: 04/12/20 20:06 Dose: 30 mg Documented by: Enoxaparin Sodium (Lovenox) 40 mg SUBCUT DAILY [facility] Last Admin: 04/13/20 08:46 Dose: 40 mg Documented by: Fentanyl (Duragesic) 25 mcg TRDERM Q72H [facility] Fentanyl (Duragesic) 100 mcg TOP Q72H [facility] Ibuprofen (Motrin) 600 mg PO Q6H PRN PRN Reason: Pain Last Admin: 04/13/20 05:17 Dose: 600 mg Documented by: Lactulose (Cephulac) 20 gm PO DAILY [facility] Last Admin: 04/13/20 08:45 Dose: 20 gm Documented by: Levetiracetam (Keppra) 1,000 mg PO Q8H [facility] Last Admin: 04/13/20 05:17 Dose: 1,000 mg Documented by: Melatonin (Melatonin) 21 mg PO BEDTIME [facility] Last Admin: 04/12/20 20:05 Dose: 21 mg Documented by: Metoclopramide HCl (Reglan) 10 mg PO DAILY [facility] Last Admin: 04/13/20 08:41 Dose: 10 mg Documented by: Miscellaneous Information (Remove Patch) 1 ea TRDERM Q72H [facility] Miscellaneous Information (Remove Patch) 1 ea TRDERM Q72H [facility] Ondansetron HCl (Zofran Odt) 4 mg PO Q4H PRN PRN Reason: Nausea/Vomiting Last Admin: 04/12/20 23:58 Dose: 4 mg Documented by: Oxycodone HCl (Oxycontin) 20 mg PO BID [facility] Last Admin: 04/13/20 08:44 Dose: 20 mg Documented by: Senna/Docusate Sodium (Senna Plus) 2 tab PO DAILY@21 [facility] Last Admin: 04/12/20 20:04 Dose: 2 tab Documented by: Sodium Chloride (Saline Flush) 10 ml FLUSH ASDIRECTED PRN PRN Reason: Keep Vein Open Last Admin: 04/07/20 15:30 Dose: 10 ml Documented by: Trazodone HCl (Trazodone) 50 mg PO BEDTIME PRN PRN Reason: Sleep Last Admin: 04/11/20 21:20 Dose: 50 mg Documented by: Discontinued Medications Albuterol/Ipratropium (Duoneb 3.0-0.5 Mg/3 Ml) 3 ml NEB ONETIME ONE Stop: 04/07/20 14:47 Last Admin: 04/07/20 15:00 Dose: 3 ml Documented by: Albuterol/Ipratropium (Duoneb 3.0-0.5 Mg/3 Ml) 3 ml NEB QID PRN PRN Reason: Shortness of Breath Last Admin: 04/09/20 16:28 Dose: 3 ml Documented by: Clonidine HCl (Catapres) 0.1 mg PO DAILY [facility] Clonidine HCl (Catapres) 0.1 mg PO ONETIME ONE Stop: 04/07/20 22:01 Last Admin: 04/07/20 22:08 Dose: 0.1 mg Documented by: Duloxetine HCl (Cymbalta) 90 mg PO DAILY [facility] Duloxetine HCl (Cymbalta) 30 mg PO ONETIME ONE Stop: 04/07/20 22:01 Last Admin: 04/07/20 22:04 Dose: 30 mg Documented by: Enoxaparin Sodium (Lovenox) 40 mg SUBCUT DAILY [facility] Last Admin: 04/10/20 08:49 Dose: 40 mg Documented by: Fentanyl (Duragesic) 100 mcg TOP Q72H [facility] Last Admin: 04/08/20 01:31 Dose: Not Given Documented by: Fentanyl (Duragesic) 100 mcg TOP Q72H [facility] Last Admin: 04/11/20 07:54 Dose: Not Given Documented by: Fentanyl (Duragesic) 25 mcg TRDERM Q72H [facility] Last Admin: 04/10/20 14:00 Dose: 25 mcg Documented by: Furosemide (Lasix) 20 mg IVPUSH ONETIME ONE Stop: 04/10/20 10:25 Last Admin: 04/10/20 16:03 Dose: 20 mg Documented by: Hydromorphone HCl (Dilaudid) 0.5 mg IVPUSH ONETIME ONE Stop: 04/07/20 14:49 Last Admin: 04/07/20 15:29 Dose: 0.5 mg Documented by: Sodium Chloride (Normal Saline) 45 mls @ 40 mls/hr IV ASDIRECTED [facility] Last Admin: 04/07/20 16:36 Dose: 40 mls/hr Documented by: Vancomycin HCl 1 gm/ Sodium (Chloride) 250 mls @ 250 mls/hr IV ONETIME ONE Stop: 04/07/20 18:20 Last Admin: 04/07/20 19:48 Dose: 250 mls/hr Documented by: Piperacillin Sod/Tazobactam (Sod 4.5 gm/ Sodium Chloride) 100 mls @ 25 mls/hr IV Q8H [facility] Last Admin: 04/10/20 00:58 Dose: 25 mls/hr Documented by: Ceftriaxone Sodium 1 gm/ (Sodium Chloride) 100 mls @ 200 mls/hr IV ONETIME ONE Stop: 04/07/20 17:52 Last Admin: 04/07/20 17:58 Dose: 200 mls/hr Documented by: Dextrose/Lactated Ringer's (Dextrose 5%-Lactated Ringers) 1,000 [facility]ls [facility] Admin: 04/08/20 16:14 Dose: 125 mls/hr Documented by: Vancomycin HCl 0.75 gm/ Sodium (Chloride) 250 mls @ 250 mls/hr IV Q24H [facility] Last Admin: 04/09/20 18:30 Dose: 250 mls/hr Documented by: Lactated Ringer's (Ringers, Lactated) 1,000 mls @ 50 mls/hr IV ASDIRECTED [facility] Vancomycin HCl 0.75 gm/ Sodium (Chloride) 250 mls @ 250 mls/hr IV Q12H [facility] Vancomycin HCl 0.75 gm/ Sodium (Chloride) 250 mls @ 250 mls/hr IV Q12H [facility] Last Admin: 04/10/20 06:46 Dose: 250 mls/hr Documented by: Sodium Chloride (Normal Saline) 250 mls @ [facility] Last Admin: 04/10/20 16:40 Dose: 10 mls/hr Documented by: Iopamidol (Isovue-370 (76%)) 100 ml IVPUSH ONETIME ONE Stop: 04/07/20 16:25 Last Admin: 04/07/20 16:36 Dose: 100 ml Documented by: Lactulose (Cephulac) 20 gm PO BID [facility] Last Admin: 04/10/20 08:43 Dose: Not Given Documented by: Melatonin (Melatonin) 21 mg PO ONETIME ONE Stop: 04/07/20 22:01 Last Admin: 04/07/20 22:09 Dose: 21 mg Documented by: Methylprednisolone Sodium Succinate (Solu-Medrol) 125 mg IVPUSH ONETIME ONE Stop: 04/07/20 14:47 Last Admin: 04/07/20 15:28 Dose: 125 mg Documented by: Metoclopramide HCl (Reglan) 10 mg PO QID [facility] Last Admin: 04/10/20 08:48 Dose: 10 mg Documented by: Miscellaneous Information (Remove Patch) 1 ea TRDERM Q72H [facility] Potassium Chloride (Klor-Con M20) 20 meq PO BID [facility] Stop: 04/09/20 09:01 Last Admin: 04/09/20 09:00 Dose: 20 meq Documented by: Potassium Chloride (Klor-Con M20) 20 meq PO BID [facility] Last Admin: 04/11/20 10:25 Dose: Not Given Documented by: Senna/Docusate Sodium (Senna Plus) 2 tab PO BID [facility] Last Admin: 04/10/20 08:44 Dose: 2 tab Documented by: Sodium Chloride (Saline Flush) 10 ml FLUSH ONETIME PRN PRN Reason: Keep Vein Open Last Admin: 04/07/20 16:36 Dose: 10 ml Documented by: Trazodone HCl (Trazodone) 50 mg PO ONETIME PRN PRN Reason: Sleep Stop: 04/09/20 23:59 Last Admin: 04/09/20 21:39 Dose: 50 mg Documented by: Vancomycin HCl (Pharmacy To Dose - Vancomycin) 1 dose .XX ASDIRECTED PRN PRN Reason: RX TO DOSE VANCO - Exam Quality Assessment: Reports: Supplemental Oxygen (O2 at 3L) General: Reports: Alert, Oriented HEENT: Reports: Pupils Equal, Pupils Reactive, EOMI, Mucous Membr. Moist/[place] Neck: Reports: Supple Lungs: Reports: Decreased Breath Sounds Cardiovascular: Reports: Regular Rate, Regular Rhythm GI/Abdominal Exam: Normal Bowel Sounds, Soft, Non-Tender, No Organomegaly, No Distention, No Abnormal Bruit, No Mass, Pelvis Stable Back Exam: Reports: Normal Inspection, Full Range of Motion Extremities: Normal Inspection, Normal Range of Motion, Non-Tender, No Pedal Edema, Normal Capillary Refill Skin: Reports: Warm, Dry, Intact, Other (2x1 decubitus coccyx ulcer) Wound/Incisions: Reports: Decubitis (2x1 decubitus coccyx ulcer) Neurological: Reports: No New Focal Deficit Psy/Mental Status: Reports: Alert, Normal Affect, Normal Mood
[2020-04-13] MEDS ORDERED: fentaNYL 100 MCG/HR Transdermal Patch TOP SCH (12:00)
[2020-04-13] MEDS ORDERED: fentaNYL 25 MCG/HR Transdermal Patch TRDERM SCH (12:00)
[2020-04-13] MEDS ORDERED: FENTANYL TRDERM SCH (12:00)
[2020-04-13] MEDS ORDERED: REMOVE TRDERM SCH (12:00)
== END 2020-04-13 14:37 | disposition hospice, home (50) | DRG 139 ==
LOC: JD.ED 13:59 → JD.MS 19:11
PROVIDERS: ADMIT Pediatrics; ATTEND Pediatrics
PROC: 30233N1 Transfusion of Nonautologous Red Blood Cells into Peripheral Vein, Percutaneous Approach (ICD-10-PCS; principal; 2020-04-08)
DX: J18.9 Pneumonia, unspecified organism (principal); E86.0 Dehydration; E87.1 Hypo-osmolality and hyponatremia; E87.6 Hypokalemia; Z68.1 Body mass index [BMI] 19.9 or less, adult; Z85.118 Personal history of other malignant neoplasm of bronchus and lung; C77.9 Secondary and unspecified malignant neoplasm of lymph node, unspecified; L89.159 Pressure ulcer of sacral region, unspecified stage; K59.03 Drug induced constipation; T40.2X5A Adverse effect of other opioids, initial encounter; C34.11 Malignant neoplasm of upper lobe, right bronchus or lung; Z79.899 Other long term (current) drug therapy; Z88.8 Allergy status to other drugs, medicaments and biological substances; F17.210 Nicotine dependence, cigarettes, uncomplicated; Z90.89 Acquired absence of other organs; Z90.710 Acquired absence of both cervix and uterus; E46 Unspecified protein-calorie malnutrition; D63.8 Anemia in other chronic diseases classified elsewhere
CPT/HCPCS: 36415; 71045; 71045-26; 71046; 71046-26; 71275; 71275-26; 80048; 80053; 80202; 81001; 84484; 85025; 86140; 87040; 87641; 93005; 94640; 94760; 94761; 96361; 96365; 96367; 96375; 97110-GO; 97110-GP; 97162-GP; 97166-GO; 97530-GO; 97530-GP; 99285-25; A9270-GY; J0696; J1170; J1650; J2543; J2930; J3370; J7050; J7121; J7620-GY; J8540; P9016; Q9967; U0002

== ENCOUNTER 2020-04-19 04:48 | Emergency (ER) | payer BC ==
--- NOTE | 2020-04-19 05:10 | EDM.PDOC ---
ED HPI GENERAL MEDICAL PROBLEM - General Chief Complaint: Respiratory Problem Stated Complaint: [facility] Time Seen by Provider: 04/19/20 04:48 Source of Information: Reports: Patient, EMS, Family () History Limitations: Reports: No Limitations - History of Present Illness INITIAL COMMENTS - FREE TEXT/NARRATIVE: Mrs. Nicole is a very pleasant 64-year-old woman with a past medical history significant for stage IV lung cancer, with known mets to the brain and bone, who was enrolled into hospice when she was discharged home after being hospitalized on 04/07/2020, who is now returned to the ED by EMS due to worsening generalized pain and dyspnea. According to the patient's , the patient has chronic pain and chronic dyspnea, but that her symptoms have been getting worse, along with a decreasing oxygen saturation. She is ordinarily on 3 L of oxygen per nasal cannula. She has fentanyl patches, along with as-needed morphine and oxycodone. The patient's states that he contacted the hospice nurse rogelio, and was instructed to increase the patient's morphine and oxycodone, which he did, but when that did not seem to adequately treat the patient's pain, he states that he panicked and called EMS. EMS tells me that they placed the patient on 3 L of oxygen per nasal cannula, but did not give any medications, however, the patient's tells me that the patient is ordinarily on 3 L of oxygen per nasal cannula. She had been on 4 L after being discharged home on 04/13/2020, but then required less oxygen. Here in the ED, the patient is found to be hemodynamically stable, afebrile, saturating 88% on 3 L of oxygen per nasal cannula. The patient's PCP is Dr. Gus Betts. Her Oncologist is Dr. Mike Grijalva. The patient's cannot recall the name of her Radiation Oncologist. Generalized Pain Score (Numeric/FACES): 8 - Related Data Allergies Allergy/AdvReac Type Severity Reaction Status Date / Time phenytoin [From Dilantin] Allergy Severe Rash Verified 04/19/20 04:52 lorazepam [From Ativan] AdvReac Severe Cardiac Verified 04/19/20 04:52 Arrest Home Meds: Home Meds DULoxetine [Cymbalta] 30 mg PO BEDTIME 04/07/20 [History] DULoxetine [Cymbalta] 60 mg PO DAILY 04/07/20 [History] Metoclopramide HCl [Reglan] 10 mg PO QID 04/07/20 [History] cloNIDine [Catapres] 0.1 mg PO DAILY 04/07/20 [History] dexAMETHasone [Dexamethasone] 2 mg PO DAILY 04/07/20 [History] fentaNYL [Duragesic] 100 mcg TD Q48H 04/07/20 [History] levETIRAcetam [Keppra] 1,000 mg PO Q8H 04/07/20 [History] oxyCODONE ER [OxyCONTIN] 20 mg PO BID 04/07/20 [History] Amoxicillin/Clavulanate K [Augmentin 875-125 MG] 1 tab PO Q12HR #8 tablet 0 04/13/20 [Rx] Dibucaine [Nupercainal 1% Oint] 0 gm TOP Q4H PRN #2 tube 04/13/20 [Rx] Docusate Sodium/Sennosides [Senna Plus] 2 tab PO DAILY@21 #20 tablet 04/13/20 [Rx] Ibuprofen [Motrin] 600 mg PO Q6H PRN #20 tablet 04/13/20 [Rx] fentaNYL [Duragesic] 25 mcg TRDERM Q72H #10 patch 04/13/20 [Rx] Haloperidol Lactate [Haldol 2 MG/ML Soln] 0.25 ml PO Q6H PRN 04/19/20 [History] Hyoscyamine [Levsin] 0.125 mg PO Q4HR PRN 04/19/20 [History] Meclizine HCl 12.5 mg PO ASDIRECTED 04/19/20 [History] Morphine [Morphine 20 MG/ML Soln] 20 mg PO Q4H PRN 04/19/20 [History] Past Medical History HEENT History: Reports: Impaired Vision Musculoskeletal History: Reports: Osteoarthritis Oncologic (Cancer) History: Reports: Lung (Stage IV) - Past Surgical History HEENT Surgical History: Reports: Adenoidectomy, LASIK, Tonsillectomy Female Surgical History: Reports: Hysterectomy Neurological Surgical History: Reports: Lumbar Spine Musculoskeletal Surgical History: Reports: Knee Replacement (right) Oncologic Surgical History: Reports: Other (See Below) (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 ED EXAM, GENERAL - Physical Exam Exam: See Below Exam Limited By: No Limitations General Appearance: Alert, No Apparent Distress, Thin Eye Exam: Bilateral Eye: EOMI, Normal Inspection Ears: Normal External Exam, Hearing Grossly Normal Nose: Normal Inspection Throat/Mouth: Normal Inspection, Normal Lips, Normal Voice, No Airway Compromise Head: Atraumatic, Normocephalic Neck: Other (Large lymphadenopathy left neck) Respiratory/Chest: No Respiratory Distress, No Accessory Muscle Use, Decreased Breath Sounds, Rhonchi (scattered), Other (Large ecchymotic lymph node over right clavicle, and an ecchymotic lymph node inferior to medial left clavicle). No: Crackles, Wheezing, Stridor, Prolonged Expiration Cardiovascular: Normal Peripheral Pulses, Regular Rate, Rhythm, No Edema, No Gallop, No JVD, No Murmur, No Rub Peripheral Pulses: 3+: Radial (L), Radial (R) GI/Abdominal: Normal Bowel Sounds, Soft, Non-Tender, No Organomegaly, No Distention, No Abnormal Bruit, No Mass (Female) Exam: Deferred Rectal (Female) Exam: Deferred Back Exam: Normal Inspection, Full Range of Motion, NT Extremities: Normal Inspection, Normal Range of Motion, No Pedal Edema, Normal Capillary Refill Neurological: Alert, Oriented, Normal Cognition, No Motor/Sensory Deficits Psychiatric: Normal Affect Skin Exam: Warm, Dry, Intact, Normal Color, No Rash Course - Vital Signs Last Recorded V/S: Last Vital Signs Temp 37.2 C 04/19/20 04:52 Pulse 94 04/19/20 04:52 Resp 16 04/19/20 04:52 BP 112/79 04/19/20 04:52 Pulse Ox 88 L 04/19/20 04:52 - Re-Assessments/Exams Free Text/Narrative Re-Assessment/Exam: 07/13/20 05:07 As above, the patient has been developing progressively worsening dyspnea and generalized pain. The patient's contacted the hospice nurse kathya mercado, who recommended an increase in the pain medication, although he did not recommend an increase in oxygen, and when the increase in pain medication did not seem to improve the patient's situation, the patient's panicked and called EMS. Case discussed with Shane Jenkins, credit administrator, at 05:03. He supported the history as above, stating that he had instructed the patient's that if the increase in pain medication did not improve the patient's pain, that the was to call him back, however, he did not hear anything further, and is now learning that the patient was brought to the ED. He confirmed what I had told the patient's earlier, which is that if we perform any medical treatment, that hospice will be revoked. I do not believe that is the patient's 's intention. 04/19/20 05:20 I relayed my conversation with Shane MURPHY to the patient's , and he confirmed that he does not want the patient to be revoked from hospice. He agrees that it would be in the patient's best interest to get her home and work on her pain medicines with the hospice team. He may be able to get her home on his own, however, we will see if we can get an ambulance crew to take her. Departure - Departure Time of Disposition: 05:22 Disposition: Home, Self-Care 01 Condition: Good Clinical Impression: Hospice care patient, Generalized pain, Dyspnea - Discharge Information *PRESCRIPTION DRUG MONITORING PROGRAM REVIEWED*: Not Applicable *COPY OF PRESCRIPTION DRUG MONITORING REPORT IN PATIENT CLAIRE: Not Applicable Referrals: Gus Concepcion MD [Physician] - Mike Grijalva MD [Ordering Only Provider] - Forms: ED Department Discharge Sepsis Event Note (ED) - Evaluation Sepsis Screening Result: No Definite Risk - Focused Exam Vital Signs: Vital Signs Temp Pulse Resp BP Pulse Ox 04/19/20 04:52 37.2 C 94 16 112/79 88 L
== END 2020-04-19 05:59 | disposition home or self-care (01) ==
LOC: JD.ED 04:48
DX: R52 Pain, unspecified (principal); R06.02 Shortness of breath; F17.210 Nicotine dependence, cigarettes, uncomplicated; Z88.8 Allergy status to other drugs, medicaments and biological substances; Z79.899 Other long term (current) drug therapy
CPT/HCPCS: 99282; 99285